=== PATIENT | male | born 1950 | race Caucasian/White ===

== ENCOUNTER 2018-12-05 18:31 | Inpatient (IN) | payer MEDICARE, OTHER ==
--- NOTE | 2018-12-05 19:21 | ED Physician Chart ---
ED Chief Complaint/HPI - Patient Information Date Seen:: 12/05/18 Time Seen:: 19:18 Chief Complaint:: agitation History of Present Illness:: 68 yr old male from [place] with agitation here for [facility] psych eval Allergies:: Allergies Allergy/AdvReac Type Severity Reaction Status Date / Time No Known Allergies Allergy Verified 12/05/18 18:58 Vitals:: Vital Signs - 8 hr 12/05/18 18:59 Temp 97.7 F HR 92 RR 18 BP 168/78 O2 Sat % 95 ED Review of Systems - Review of Systems General/Constitutional: No fever, No chills, No weight loss, No weakness, No diaphoresis, No edema, No loss of appetite Skin: No skin lesions, No rash, No bruising Head: No headache, No light-headedness Eyes: No loss of vision, No pain, No diplopia ENT: No earache, No nasal drainage, No sore throat, No tinnitus Neck: No neck pain, No swelling, No thyromegaly, No stiffness, No mass noted Cardio Vascular: No chest pain, No palpitations, No PND, No orthopnea, No edema Pulmonary: No SOB, No cough, No sputum, No wheezing GI: No nausea, No vomiting, No diarrhea, No pain, No melena, No hematochezia, No constipation, No hematemesis G/U: No dysuria, No frequency, No hematuria Musculoskeletal: No bone or joint pain, No back pain, No muscle pain Endocrine: No polyuria, No polydipsia Psychiatric: No prior psych history, No depression, No anxiety, No suicidal ideation Hematopoietic: No bruising, No lymphadenopathy Allergic/Immuno: No urticaria, No angioedema Neurological: No syncope, No focal symptoms, No weakness, No paresthesia, No headache, No seizure, No dizziness, No confusion, No vertigo ED Past Medical History - Past Medical History Past Medical History: DM, Other (paranoid schizophrenia) ED Assessment - Assessment General Assessment: schizophrenia with agitation ED Septic Shock - . 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
[2018-12-05 19:43] LABS: % LYMPHOCYTES 18.6 % (20.0-50.0); % MONOCYTES 6.5 % (2.0-10.0); % NEUTROPHILS 68.9 % (40.0-80.0); BASOPHILE ABSOLUTE 0.1 Th/cumm (0-0.2); EOSINOPHILE ABSOLUTE 0.4 Th/cmm (0.1-0.4); HEMATOCRIT 45.2 % (41.0-60); LYMPHOCYTE ABSOLUTE 1.5 Th/cmm (1.5-3.0); MEAN CELL VOLUME 87.9 fl (80-99); MEAN CORPUSCULAR HEMOGLOBIN 29.1 pg (27.0-31.0); MEAN CORPUSCULAR HGB CONC 33.1 pg (28.0-36.0); MEAN PLATELET VOLUME 7.7 fl; MONOCYTE ABSOLUTE 0.5 Th/cmm (0.3-1.0); NEUTROPHILE ABSOLUTE 5.6 Th/cmm (1.8-8.0); PLATELET COUNT 211 Th/cmm (150-400); RED BLOOD COUNT 5.14 Mil/cmm (3.80-5.80); RED CELL DISTRIBUTION WIDTH 13.5 % (11.5-20.0); WHITE BLOOD COUNT 8.1 Th/cmm (4.8-10.8)
[2018-12-05 19:56] LABS: ALB/GLOB RATIO 1.5 (1.0-1.8); ALBUMIN 4.3 gm/dL (4.2-5.5); ANION GAP 11.9 (7.0-16.0); BILIRUBIN,TOTAL 0.5 mg/dL (0.3-1.0); CALCIUM SERUM 9.6 mg/dL (8.6-10.3); CARBON DIOXIDE 26.6 mEq/L (21.0-31.0); GFR AFRICAN-AMERICAN 42.8 ml/min (>90); GFR NON AFRICAN-AMERICAN 35.4 ml/min; POTASSIUM SERUM 4.5 mEq/L (3.5-5.1); TOTAL PROTEIN,SERUM 7.2 gm/dL (6.0-8.3)
[2018-12-05 20:29] LABS: URINE SOURCE CLEAN C
[2018-12-05 20:32] LABS: URINE BILIRUBIN NEGATIVE (NEGATIVE); URINE BLOOD NEGATIVE (NEGATIVE); URINE GLUCOSE (UA) 250 mg/dL (NEGATIVE); URINE KETONE NEGATIVE (NEGATIVE); URINE LEUKOCYTE ESTERASE NEGATIVE (NEGATIVE); URINE NITRATE NEGATIVE (NEGATIVE); URINE PROTEIN NEGATIVE (NEGATIVE); URINE UROBILINOGEN 0.2 E.U./dL (0.2 - 1.0)
[2018-12-05 20:39] LABS: URINE CLARITY CLEAR (CLEAR); URINE COLOR YELLOW; URINE MICROSCOPIC INDICATED? YES
[2018-12-05 20:40] LABS: URINE BACTERIA FEW /hpf (NONE SEEN); URINE EPITHELIAL CELLS NONE SEEN /lpf (FEW); URINE RBC NONE SEEN /hpf (0-5); URINE WBC 0-2 /hpf (0-5)
[2018-12-05] MEDS ORDERED: INSULIN HUMAN REGULAR 100 UNITS/ML UNIT SUBQ ONE (20:56)
[2018-12-05] MEDS ORDERED: INSULIN HUMAN REGULAR 100 UNITS/ML UNIT ONE (21:08)
[2018-12-06 00:15] VITALS: BP 139/89
[2018-12-06 00:58] LABS: CHOLESTEROL 92 mg/dL (<200); HDL -HIGH DENSITY LIPOPROTEIN 52 mg/dL (23-92); TRIGLYCERIDES 84 mg/dL (<150)
[2018-12-06] MEDS: Multivitamin Tab PO SCH (09:48)
[2018-12-06] MEDS ORDERED: Dextrose 50% 50 mL Abboject IVP PRN (19:37)
[2018-12-06] MEDS ORDERED: GLUCAGON HCl 1 MG KIT IM PRN (19:37)
--- NOTE | 2018-12-06 20:16 | History & Physical ---
ADMIT DATE: 12/05/2018 HISTORY OF PRESENT ILLNESS: The patient is a 68-year-old male with long history of diabetes mellitus, hypertension, COPD, psychosis, admitted to [facility] under Dr. Georges's service. The patient denies any chest pain, shortness of breath. He has some cough, no fever, no chills. PAST MEDICAL HISTORY: Significant for diabetes mellitus, hypertension, chronic kidney disease, COPD, psychosis. PAST SURGICAL HISTORY: No recent surgery. ALLERGIES: None. MEDICATIONS: Follow admission reconciliation. SOCIAL HISTORY: Chronic smoker. No alcohol or drugs. FAMILY HISTORY: Noncontributory. REVIEW OF SYSTEMS: RENAL SYSTEM: No history of chronic renal disorder. CARDIOVASCULAR SYSTEM: No coronary artery disease. ENDOCRINE SYSTEM: Denies history of diabetes mellitus. GASTROINTESTINAL SYSTEM: No upper or lower gastrointestinal bleed. NEUROLOGICAL SYSTEM: No seizure disorder. MUSCULOSKELETAL SYSTEM: No muscular dystrophy. HEMATOLOGICAL SYSTEM: No bleeding tendency. RESPIRATORY SYSTEM: He has history of COPD. GENITOURINARY: No dysuria or hematuria. PHYSICAL EXAMINATION: GENERAL: He is awake, alert, mildly confused. VITAL SIGNS: Temperature 97.5, heart rate 79, blood pressure 151/89. HEENT: Normocephalic. Pupils are reactive to light and accommodation. Sclerae are clear. NECK: Supple. Negative for lymphadenopathy, JVD, or bruit. CHEST: Entry of air bilaterally mildly diminished. No wheezing. HEART: S1, S2 normal. No gallop rhythm. ABDOMEN: Soft, bowel sounds positive. EXTREMITIES: No edema. NEUROLOGIC: Awake, alert, no focal motor deficits. LABORATORY DATA: White blood cells 8.1, hemoglobin 15, hematocrit 45.2, platelet is 211. Sodium 138, potassium 4.5, BUN 39, creatinine 2.0, glucose 348. ASSESSMENT: 1. Diabetes mellitus. 2. Hypertension. 3. Chronic kidney disease. 4. Chronic obstructive pulmonary disease. 5. Psychosis. PLAN: The patient admitted to the hospital under Dr. Georges's service. Medical problem addressed during hospitalization is psychosis. Medical problem addressed at discharge diabetes mellitus, hypertension, chronic kidney disease, COPD. The patient is medically stable for activity. Thank you, Dr. Georges, for asking me to see your patient. The patient is full code. JOB# [id number]
[2018-12-06] MEDS: INSULIN LISPRO SLIDING SCALE 100 UNITS/ML UNIT SUBQ SCH (20:20)
--- NOTE | 2018-12-07 00:39 | Psychiatric Evaluation ---
DATE OF SERVICE: 12/06/2018 A 68-year-old male, apparently agitated. CHIEF COMPLAINT: "Evaluation." HISTORY OF PRESENT ILLNESS: A 68-year-old male from a nursing facility, apparently agitated, aggressive, poor historian, states he is here for "evaluation." He knows the year, the month, the date, the day of the week. He states he feels "calm," but apparently the patient was unruly, unpredictable, lashing out behaviors, could not be cared for at a lower level of care. Exacerbation of aggressive behaviors, concerns about paranoia, believing people have bad intentions towards him, responding to internal stimuli, leading to physically acting out by striking out at others. PAST PSYCHIATRIC HISTORY: Schizophrenia. FAMILY HISTORY: Noncontributory. SOCIAL HISTORY: The patient was born in [place]. Not , no kids. Denies any drugs, alcohol, or tobacco. MEDICATIONS: Noted. MENTAL STATUS EXAMINATION: Stated age, unkempt, fair eye contact. Mood "calm." Affect flat. Thought processes were engaged. Poor historian. No overt SI or HI. Concerns for paranoia and psychotic symptoms. Poor insight, poor judgment, very poor impulse control. PROVISIONAL DIAGNOSIS: Schizophrenia. Under medical, please see full H and P. ESTIMATED LENGTH OF STAY: 5-7 days. ASSESSMENT: The patient unruly, agitated, concerns for decompensation and psychosis. PLAN: Continue Zyprexa. Consider dose titration. CONDITIONS FOR DISCHARGE: Improved mood, improved affect, better control of any psychosis or violent behaviours. [facility]# [id number]
[2018-12-07] MEDS: INSULIN LISPRO SLIDING SCALE 100 UNITS/ML UNIT SUBQ SCH ×4 (06:47→20:45)
[2018-12-07] MEDS: Multivitamin Tab PO SCH (09:08)
--- NOTE | 2018-12-07 11:03 | Internal Medicine Prog Note ---
Internal Medicine Subjective - Subjective Service Date: 12/07/18 Patient seen and examined:: with staff Patient is:: awake, verbal, ambulating, talking Per staff patient has:: no adverse event (HE FEELS WELL,LESS COUGHING.) Internal Medicine Objective - Results Result Diagrams: 12/05/18 19:30 12/05/18 Recent Labs: Laboratory Last Values WBC 8.1 Th/cmm (4.8-10.8) 12/05/18: RBC 5.14 Mil/cmm (3.80-5.80) 12/05/18 Hgb 15.0 gm/dL (12-16) 12/05/18 Hct 45.2 % (41.0-60) 12/05/18: MCV 87.9 fl (80-99) 12/05/18 MCH 29.1 pg (27.0-31.0) 12/05/18 MCHC Differential 33.1 pg (28.0-36.0) 12/05/18 RDW 13.5 % (11.5-20.0) 12/05/18 Plt Count 211 Th/cmm (150-400) 12/05/18 MPV 7.7 fl 12/05/18: Neutrophils % 68.9 % (40.0-80.0) 12/05/18: Lymphocytes % 18.6 % (20.0-50.0) L 12/05/18 Monocytes % 6.5 % (2.0-10.0) 12/05/18: Eosinophils % 5.0 % (0.0-5.0) 12/05/18 Basophils % 1.0 % (0.0-2.0) 12/05/18: Sodium 138 mEq/L (136-145) 12/05/18 Potassium 4.5 mEq/L (3.5-5.1) 12/05/18 Chloride 104 mEq/L (98-107) 12/05/18: Carbon Dioxide 26.6 mEq/L (21.0-31.0) 12/05/18 Anion Gap 11.9 (7.0-16.0) 12/05/18 19:30 BUN 39 mg/dL (7-25) H 12/05/18 19:30 Creatinine 2.0 mg/dL (0.7-1.3) H 12/05/18 19:30 Est GFR ( Amer) 42.8 ml/min (>90) 12/05/18 19:30 Est GFR (Non-Af Amer) 35.4 ml/min 12/05/18 19:30 BUN/Creatinine Ratio 19.5 12/05/18 19:30 Glucose 348 mg/dL (70-105) H 12/05/18 19:30 POC Glucose 182 MG/DL (70 - 105) H 12/07/18 06:39 Random Insulin 16.6 uIU/mL (2.6-24.9) 12/05/18 19: Calcium 9.6 mg/dL (8.6-10.3) 12/05/18 19:30 Total Bilirubin 0.5 mg/dL (0.3-1.0) 12/05/18: AST 12 U/L (13-39) L 12/05/18:30 ALT 11 U/L (7-52) 12/05/18 19:30 Alkaline Phosphatase 45 U/L (34-104) 12/05/18:30 Total Protein 7.2 gm/dL (6.0-8.3) 12/05/18:30 Albumin 4.3 gm/dL (4.2-5.5) 12/05/18: Globulin 2.9 gm/dL 12/05/18: Albumin/Globulin Ratio 1.5 (1.0-1.8) 12/05/18 19:30 Triglycerides 84 mg/dL (<150) 12/05/18 19:30 Cholesterol 92 mg/dL (<200) 12/05/18 19:30 LDL Cholesterol Direct 28 mg/dL (75-193) L 12/05/18:30 HDL Cholesterol 52 mg/dL (23-92) 12/05/18 19:30 Urine Source CLEAN C 12/05/18 20:10 Urine Color YELLOW 12/05/18 20:10 Urine Clarity CLEAR (CLEAR) 12/05/18 20:10 Urine pH 6.0 (4.6 - 8.0) 12/05/18 20:10 Ur Specific [place] 1.010 (1.005-1.030) 12/05/18 20:10 Urine Protein NEGATIVE mg/dL (NEGATIVE) 12/05/18 20:10 Urine Glucose (UA) 250 mg/dL (NEGATIVE) H 12/05/18 20:10 Urine Ketones NEGATIVE mg/dL (NEGATIVE) 12/05/18 20:10 Urine Blood NEGATIVE (NEGATIVE) 12/05/18 20:10 Urine Nitrate NEGATIVE (NEGATIVE) 12/05/18 20:10 Urine Bilirubin NEGATIVE (NEGATIVE) 12/05/18 20:10 Urine Urobilinogen 0.2 E.U./dL (0.2 - 1.0) 12/05/18 20:10 Ur Leukocyte Esterase NEGATIVE (NEGATIVE) 12/05/18 20:10 Urine RBC NONE SEEN /hpf (0-5) 12/05/18 20:10 Urine WBC 0-2 /hpf (0-5) 12/05/18 20:10 Ur Epithelial Cells NONE SEEN /lpf (FEW) 12/05/18 20:10 Urine Bacteria FEW /hpf (NONE SEEN) 12/05/18 20:10 - Physical Exam Vitals and I&O: Vital Signs Temp 98.3 F 12/07/18 06:16 Pulse 77 12/07/18 09:08 Resp 19 12/07/18 06:16 BP 129/68 12/07/18 09:08 Pulse Ox 98 12/07/18 06:16 Intake & Output 12/06/18 12/07/18 12/07/18 18:59 06:59 18:59 Intake Total 1000 340 Balance 1000 340 Intake: Oral 1000 340 Other: # Voids 3 1 # Bowel Movements 1 0 Active Medications: Current Medications Acetaminophen (Tylenol) 650 mg PO Q4HR PRN PRN Reason: Pain (Mild) Stop: 02/04/19 00:31 Dextrose (D50w) 50 ml IVP PRN PRN PRN Reason: Blood Glucose less than 70 Stop: 02/04/19 19:36 Dextrose (Glutose 40%) 18.75 gm PO PRN PRN PRN Reason: Blood Glucose less than 70 Stop: 02/04/19 19:36 Docusate Sodium (Colace) 250 mg PO DAILY GAURAV Stop: 02/04/19 08:59 Last Admin: 12/07/18 09:08 Dose: 250 mg Glucagon (Glucagen) 1 mg IM PRN PRN PRN Reason: Blood Glucose less than 70 Stop: 02/04/19 19:36 Insulin Human Lispro (Humalog Insulin Sliding Scale) 0 units SUBQ ACHS [facility]; Protocol Stop: 02/04/19 20:59 Last Admin: 12/07/18 06:47 Dose: 3 units Lisinopril (Zestril) 10 mg PO DAILY GAURAV Stop: 02/04/19 08:59 Last Admin: 12/07/18 09:08 Dose: 10 mg Lorazepam (Ativan) 0.5 mg PO Q4HR PRN; Protocol PRN Reason: Anxiety Stop: 01/05/19 00:15 Multivitamins/Vitamin C (Theragran) 1 tab PO DAILY GAURAV Stop: 02/04/19 08:59 Last Admin: 12/07/18 09:08 Dose: 1 tab Olanzapine (Zyprexa) 10 mg PO BID [facility]; Protocol Stop: 02/04/19 08:59 Last Admin: 12/07/18 09:07 Dose: 10 mg Zolpidem Tartrate (Ambien) 5 mg PO HS PRN PRN Reason: Insomnia Stop: 02/03/19 21:44 General: alert, demented HEENT: NC/AT, PERRLA, EOMI, anicteric sclerae, throat clear Neck: Supple, No JVD, No thyromegaly, +2 carotid pulse wo bruit, No LAD Lungs: CTAB, congested, wheezing Cardiovascular: RRR, Normal S1, Normal S2, without murmur Abdomen: soft, non-tender, non-distended Neurological: no change Internal Medicine Assmt/Plan - Assessment Assessment: 1.DM. 2.HTN. 3.COPD. 4.PSYCHOSIS. - Plan Plan: CONTINUE ON CURRENT MEDICATION AND DIET. Nutritional Asmnt/Malnutr-PDOC - Dietary Evaluation Malnutrition Findings (Please click <Entered> for more info): Nutritional Asmnt/Malnutrition Start: 12/06/18 16: 54 Text: Status: Complete Freq: Protocol: Document 12/06/18 16:54 [email or web address] (Rec: 12/06/18 17:11 [email or web address]) Nutritional Asmnt/Malnutrition Patient General Information Nutritional Screening High Risk Consult Diagnosis psychosis NOS Pertinent Medical Hx/Surgical Hx DM, schizophrenia Subjective Information Pt not seen in room or dining room at time of visit. Current Diet Order/ Nutrition Support regular Pertinent Medications colace, theragran Pertinent Labs 12/05 BUN 39, Cr 2.0, Glucose 348, POC 181-279 Nutritional Hx/Data Height 1.68 m Height (Calculated Centimeters) 167.6 Current Weight (lbs) 73.482 kg Weight (Calculated Kilograms) 73.5 Weight (Calculated Grams) 23829.0 [place] Body Weight 142 Body Mass Index (BMI) 26.1 Weight Status Overweight GI Symptoms GI Symptoms None Last BM not indicated Difficult in: None Skin Integrity/Comment: intact Estimated Nutritional Goals BEE in Kcals: Using Current wt Calories/Kcals/Kg 23-27 Kcals Calculated 8777-5707 Protein: Using Current wt Protein g/k Protein Calculated 74 Fluid: ml 1702-1997ml (1ml/kcal) Nutritional Problem 1. Problem Problem altered nutrition related labs Etiology hyperglycemia Signs/Symptoms: glucose 348, POC 181 Malnutrition Alert Is there a minimum of two criteria No selected? Query Text:Check all the applicable criteria. A minimum of two criteria are recommended for diagnosis of either severe or non-severe malnutrition. Malnutrition Related to Morbid Obesity Malnutrition related to morbid obesity No Intervention/Recommendation Comments 1. Recommend to add CCHO-60gm diet d/t hyperglycemia. ESHA Dawn notified. 2. Monitor PO intake, wt, labs and skin integrity 3. F/U as high risk in 2-3 days Expected Outcomes/Goals Expected Outcomes/Goals 1. PO intake to meet at least 75% of nutritional needs. 2. Wt stability, skin to remain intact, labs to approach WNL.
[2018-12-08] MEDS: INSULIN LISPRO SLIDING SCALE 100 UNITS/ML UNIT SUBQ SCH ×4 (06:59→20:40)
[2018-12-08] MEDS: Multivitamin Tab PO SCH (08:51)
--- NOTE | 2018-12-08 12:10 | Progress Notes ---
DATE: 12/07/2018 SUBJECTIVE: A 68-year-old male from a nursing facility, agitated, aggressive, poor historian, does not know why he is here, continues to state that is here for "an evaluation." The patient AO to name, place, not situation, not year. Staff noting he remains preoccupied, mumbling to self, seems internally preoccupied. No agitation, no escalation of behaviors, mostly here because he was paranoid, believing others have bad intentions, responding to internal stimuli, concerns about acting up behaviors, history of schizophrenia. ASSESSMENT: The patient remains symptomatic, ongoing psychotic symptoms. MEDICATIONS: Noted. PLAN: We will continue to monitor. Continue titration of medications as tolerated. [facility]# [id number]
--- NOTE | 2018-12-08 20:24 | Internal Medicine Prog Note ---
Internal Medicine Subjective - Subjective Service Date: 12/08/18 Patient seen and examined:: with staff Patient is:: awake, verbal, ambulating, talking Per staff patient has:: no adverse event (HE FEELS WELL,LESS COUGHING.) Internal Medicine Objective - Results Result Diagrams: 12/05/18 19:12/05/18 Recent Labs: Laboratory Last Values WBC 8.1 Th/cmm (4.8-10.8) 12/05/18: RBC 5.14 Mil/cmm (3.80-5.80) 12/05/18 Hgb 15.0 gm/dL (12-16) 12/05/18 Hct 45.2 % (41.0-60) 12/05/18: MCV 87.9 fl (80-99) 12/05/18 MCH 29.1 pg (27.0-31.0) 12/05/18 MCHC Differential 33.1 pg (28.0-36.0) 12/05/18 RDW 13.5 % (11.5-20.0) 12/05/18 Plt Count 211 Th/cmm (150-400) 12/05/18 MPV 7.7 fl 12/05/18: Neutrophils % 68.9 % (40.0-80.0) 12/05/18: Lymphocytes % 18.6 % (20.0-50.0) L 12/05/18 Monocytes % 6.5 % (2.0-10.0) 12/05/18: Eosinophils % 5.0 % (0.0-5.0) 12/05/18 Basophils % 1.0 % (0.0-2.0) 12/05/18: Sodium 138 mEq/L (136-145) 12/05/18 Potassium 4.5 mEq/L (3.5-5.1) 12/05/18 Chloride 104 mEq/L (98-107) 12/05/18: Carbon Dioxide 26.6 mEq/L (21.0-31.0) 12/05/18 Anion Gap 11.9 (7.0-16.0) 12/05/18 19:30 BUN 39 mg/dL (7-25) H 12/05/18 19:30 Creatinine 2.0 mg/dL (0.7-1.3) H 12/05/18 19:30 Est GFR ( Amer) 42.8 ml/min (>90) 12/05/18 19: Est GFR (Non-Af Amer) 35.4 ml/min 12/05/18: BUN/Creatinine Ratio 19.5 12/05/18 19:30 Glucose 348 mg/dL (70-105) H 12/05/18: POC Glucose 148 MG/DL (70 - 105) H 12/07/18: Random Insulin 16.6 uIU/mL (2.6-24.9) 12/05/18: Calcium 9.6 mg/dL (8.6-10.3) 12/05/18: Total Bilirubin 0.5 mg/dL (0.3-1.0) 12/05/18: AST 12 U/L (13-39) L 12/05/18:30 ALT 11 U/L (7-52) 12/05/18: Alkaline Phosphatase 45 U/L (34-104) 12/05/18: Total Protein 7.2 gm/dL (6.0-8.3) 12/05/18: Albumin 4.3 gm/dL (4.2-5.5) 12/05/18: Globulin 2.9 gm/dL 12/05/18: Albumin/Globulin Ratio 1.5 (1.0-1.8) 12/05/18 19:30 Triglycerides 84 mg/dL (<150) 12/05/18 19:30 Cholesterol 92 mg/dL (<200) 12/05/18 19:30 LDL Cholesterol Direct 28 mg/dL (75-193) L 12/05/18: HDL Cholesterol 52 mg/dL (23-92) 12/05/18 19:30 Urine Source CLEAN C 12/05/18 20:10 Urine Color YELLOW 12/05/18 20:10 Urine Clarity CLEAR (CLEAR) 12/05/18 20:10 Urine pH 6.0 (4.6 - 8.0) 12/05/18 20:10 Ur Specific [place] 1.010 (1.005-1.030) 12/05/18 20:10 Urine Protein NEGATIVE mg/dL (NEGATIVE) 12/05/18 20:10 Urine Glucose (UA) 250 mg/dL (NEGATIVE) H 12/05/18 20:10 Urine Ketones NEGATIVE mg/dL (NEGATIVE) 12/05/18 20:10 Urine Blood NEGATIVE (NEGATIVE) 12/05/18 20:10 Urine Nitrate NEGATIVE (NEGATIVE) 12/05/18 20:10 Urine Bilirubin NEGATIVE (NEGATIVE) 12/05/18 20:10 Urine Urobilinogen 0.2 E.U./dL (0.2 - 1.0) 12/05/18 20:10 Ur Leukocyte Esterase NEGATIVE (NEGATIVE) 12/05/18 20:10 Urine RBC NONE SEEN /hpf (0-5) 12/05/18 20:10 Urine WBC 0-2 /hpf (0-5) 12/05/18 20:10 Ur Epithelial Cells NONE SEEN /lpf (FEW) 12/05/18 20:10 Urine Bacteria FEW /hpf (NONE SEEN) 12/05/18 20:10 - Physical Exam Vitals and I&O: Vital Signs Temp 98.0 F 12/08/18 14:00 Pulse 89 12/08/18 14:00 Resp 20 12/08/18 14:00 BP 130/80 12/08/18 14:00 Pulse Ox 96 12/08/18 14:00 Intake & Output 12/08/18 12/08/18 12/09/18 06:59 18:59 06:59 Intake Total 240 Balance 240 Intake: Oral 240 Other: # Voids 3 2 # Bowel Movements 0 0 Active Medications: Current Medications Acetaminophen (Tylenol) 650 mg PO Q4HR PRN PRN Reason: Pain (Mild) Stop: 02/04/19 00:31 Dextrose (D50w) 50 ml IVP PRN PRN PRN Reason: Blood Glucose less than 70 Stop: 02/04/19 19:36 Dextrose (Glutose 40%) 18.75 gm PO PRN PRN PRN Reason: Blood Glucose less than 70 Stop: 02/04/19 19:36 Docusate Sodium (Colace) 250 mg PO DAILY GAURAV Stop: 02/04/19 08:59 Last Admin: 12/08/18 08:51 Dose: 250 mg Glucagon (Glucagen) 1 mg IM PRN PRN PRN Reason: Blood Glucose less than 70 Stop: 02/04/19 19:36 Insulin Human Lispro (Humalog Insulin Sliding Scale) 0 units SUBQ ACHS [facility]; Protocol Stop: 02/04/19 20:59 Last Admin: 12/08/18 18:02 Dose: Not Given Lisinopril (Zestril) 10 mg PO DAILY GAURAV Stop: 02/04/19 08:59 Last Admin: 12/08/18 08:50 Dose: 10 mg Lorazepam (Ativan) 0.5 mg PO Q4HR PRN; Protocol PRN Reason: Anxiety Stop: 01/05/19 00:15 Multivitamins/Vitamin C (Theragran) 1 tab PO DAILY GAURAV Stop: 02/04/19 08:59 Last Admin: 12/08/18 08:51 Dose: 1 tab Olanzapine (Zyprexa) 10 mg PO BID [facility]; Protocol Stop: 02/04/19 08:59 Last Admin: 12/08/18 18:00 Dose: 10 mg Zolpidem Tartrate (Ambien) 5 mg PO HS PRN PRN Reason: Insomnia Stop: 02/03/19 21:44 General: alert, demented HEENT: NC/AT, PERRLA, EOMI, anicteric sclerae, throat clear Neck: Supple, No JVD, No thyromegaly, +2 carotid pulse wo bruit, No LAD Lungs: CTAB, congested, wheezing Cardiovascular: RRR, Normal S1, Normal S2, without murmur Abdomen: soft, non-tender, non-distended Neurological: no change Internal Medicine Assmt/Plan - Assessment Assessment: 1.DM. 2.HTN. 3.COPD. 4.PSYCHOSIS. - Plan Plan: CONTINUE ON CURRENT MEDICATION AND DIET. Nutritional Asmnt/Malnutr-PDOC - Dietary Evaluation Malnutrition Findings (Please click <Entered> for more info): Nutritional Asmnt/Malnutrition Start: 12/06/18 16: 54 Text: Status: Complete Freq: Protocol: Document 12/06/18 16:54 [email or web address] (Rec: 12/06/18 17:11 [email or web address]) Nutritional Asmnt/Malnutrition Patient General Information Nutritional Screening High Risk Consult Diagnosis psychosis NOS Pertinent Medical Hx/Surgical Hx DM, schizophrenia Subjective Information Pt not seen in room or dining room at time of visit. Current Diet Order/ Nutrition Support regular Pertinent Medications colace, theragran Pertinent Labs 12/05 BUN 39, Cr 2.0, Glucose 348, POC 181-279 Nutritional Hx/Data Height 1.68 m Height (Calculated Centimeters) 167.6 Current Weight (lbs) 73.482 kg Weight (Calculated Kilograms) 73.5 Weight (Calculated Grams) 05076.0 [place] Body Weight 142 Body Mass Index (BMI) 26.1 Weight Status Overweight GI Symptoms GI Symptoms None Last BM not indicated Difficult in: None Skin Integrity/Comment: intact Estimated Nutritional Goals BEE in Kcals: Using Current wt Calories/Kcals/Kg 23-27 Kcals Calculated 1666-8128 Protein: Using Current wt Protein g/k Protein Calculated 74 Fluid: ml 1702-1997ml (1ml/kcal) Nutritional Problem 1. Problem Problem altered nutrition related labs Etiology hyperglycemia Signs/Symptoms: glucose 348, POC 181 Malnutrition Alert Is there a minimum of two criteria No selected? Query Text:Check all the applicable criteria. A minimum of two criteria are recommended for diagnosis of either severe or non-severe malnutrition. Malnutrition Related to Morbid Obesity Malnutrition related to morbid obesity No Intervention/Recommendation Comments 1. Recommend to add CCHO-60gm diet d/t hyperglycemia. RN López notified. 2. Monitor PO intake, wt, labs and skin integrity 3. F/U as high risk in 2-3 days Expected Outcomes/Goals Expected Outcomes/Goals 1. PO intake to meet at least 75% of nutritional needs. 2. Wt stability, skin to remain intact, labs to approach WNL.
[2018-12-09] MEDS: INSULIN LISPRO SLIDING SCALE 100 UNITS/ML UNIT SUBQ SCH ×4 (06:58→20:51)
[2018-12-09] MEDS: Multivitamin Tab PO SCH (09:13)
--- NOTE | 2018-12-09 12:02 | Progress Notes ---
DATE: 12/08/2018 SUBJECTIVE: The patient is currently in the hospital, here for "evaluation," fairly oriented, coming here for aggressive behaviors. The patient seems to still be symptomatic, mumbling to self, making some nonsensical comments and statements. The patient states he feels "anxious," does not know where he is going to go when he leaves here. He slept for about 8 hours last night. AO to name, place, not situation. Still seems to be mumbling to self, responding to internal stimuli, ongoing concerns about psychosis. ASSESSMENT: The patient remains psychotic, not safe for a lower level of care, ongoing concerns about impulsivities. PLAN: We will continue to monitor. Continue dosing of medications. Consider dose increase of Zyprexa. JOB# [id number]
--- NOTE | 2018-12-09 16:39 | Internal Medicine Prog Note ---
Internal Medicine Subjective - Subjective Service Date: 12/09/18 Patient seen and examined:: with staff Patient is:: awake, verbal, ambulating, talking Per staff patient has:: no adverse event (HE FEELS WELL,LESS COUGHING.) Internal Medicine Objective - Results Result Diagrams: 12/05/18 19:12/05/18 Recent Labs: Laboratory Last Values WBC 8.1 Th/cmm (4.8-10.8) 12/05/18: RBC 5.14 Mil/cmm (3.80-5.80) 12/05/18 Hgb 15.0 gm/dL (12-16) 12/05/18 Hct 45.2 % (41.0-60) 12/05/18 MCV 87.9 fl (80-99) 12/05/18 MCH 29.1 pg (27.0-31.0) 12/05/18 MCHC Differential 33.1 pg (28.0-36.0) 12/05/18 RDW 13.5 % (11.5-20.0) 12/05/18 Plt Count 211 Th/cmm (150-400) 12/05/18 MPV 7.7 fl 12/05/18 Neutrophils % 68.9 % (40.0-80.0) 12/05/18 Lymphocytes % 18.6 % (20.0-50.0) L 12/05/18 Monocytes % 6.5 % (2.0-10.0) 12/05/18: Eosinophils % 5.0 % (0.0-5.0) 12/05/18 Basophils % 1.0 % (0.0-2.0) 12/05/18: Sodium 138 mEq/L (136-145) 12/05/18 Potassium 4.5 mEq/L (3.5-5.1) 12/05/18 Chloride 104 mEq/L (98-107) 12/05/18: Carbon Dioxide 26.6 mEq/L (21.0-31.0) 12/05/18 Anion Gap 11.9 (7.0-16.0) 12/05/18 19:30 BUN 39 mg/dL (7-25) H 12/05/18 19:30 Creatinine 2.0 mg/dL (0.7-1.3) H 12/05/18 19:30 Est GFR ( Amer) 42.8 ml/min (>90) 12/05/18 19: Est GFR (Non-Af Amer) 35.4 ml/min 12/05/18: BUN/Creatinine Ratio 19.5 12/05/18 19:30 Glucose 348 mg/dL (70-105) H 12/05/18: POC Glucose 148 MG/DL (70 - 105) H 12/07/18: Random Insulin 16.6 uIU/mL (2.6-24.9) 12/05/18: Calcium 9.6 mg/dL (8.6-10.3) 12/05/18: Total Bilirubin 0.5 mg/dL (0.3-1.0) 12/05/18: AST 12 U/L (13-39) L 12/05/18:30 ALT 11 U/L (7-52) 12/05/18: Alkaline Phosphatase 45 U/L (34-104) 12/05/18: Total Protein 7.2 gm/dL (6.0-8.3) 12/05/18: Albumin 4.3 gm/dL (4.2-5.5) 12/05/18: Globulin 2.9 gm/dL 12/05/18: Albumin/Globulin Ratio 1.5 (1.0-1.8) 12/05/18 19:30 Triglycerides 84 mg/dL (<150) 12/05/18 19:30 Cholesterol 92 mg/dL (<200) 12/05/18 19:30 LDL Cholesterol Direct 28 mg/dL (75-193) L 12/05/18: HDL Cholesterol 52 mg/dL (23-92) 12/05/18 19:30 Urine Source CLEAN C 12/05/18 20:10 Urine Color YELLOW 12/05/18 20:10 Urine Clarity CLEAR (CLEAR) 12/05/18 20:10 Urine pH 6.0 (4.6 - 8.0) 12/05/18 20:10 Ur Specific [place] 1.010 (1.005-1.030) 12/05/18 20:10 Urine Protein NEGATIVE mg/dL (NEGATIVE) 12/05/18 20:10 Urine Glucose (UA) 250 mg/dL (NEGATIVE) H 12/05/18 20:10 Urine Ketones NEGATIVE mg/dL (NEGATIVE) 12/05/18 20:10 Urine Blood NEGATIVE (NEGATIVE) 12/05/18 20:10 Urine Nitrate NEGATIVE (NEGATIVE) 12/05/18 20:10 Urine Bilirubin NEGATIVE (NEGATIVE) 12/05/18 20:10 Urine Urobilinogen 0.2 E.U./dL (0.2 - 1.0) 12/05/18 20:10 Ur Leukocyte Esterase NEGATIVE (NEGATIVE) 12/05/18 20:10 Urine RBC NONE SEEN /hpf (0-5) 12/05/18 20:10 Urine WBC 0-2 /hpf (0-5) 12/05/18 20:10 Ur Epithelial Cells NONE SEEN /lpf (FEW) 12/05/18 20:10 Urine Bacteria FEW /hpf (NONE SEEN) 12/05/18 20:10 - Physical Exam Vitals and I&O: Vital Signs Temp 97.8 F 12/09/18 13:58 Pulse 91 12/09/18 13:58 Resp 16 12/09/18 13:58 BP 106/70 12/09/18 13:58 Pulse Ox 99 12/09/18 13:58 Intake & Output 12/08/18 12/09/18 12/09/18 18:59 06:59 18:59 Intake Total 120 Balance 120 Intake: Oral 120 Other: # Voids 2 2 # Bowel Movements 0 Active Medications: Current Medications Acetaminophen (Tylenol) 650 mg PO Q4HR PRN PRN Reason: Pain (Mild) Stop: 02/04/19 00:31 Dextrose (D50w) 50 ml IVP PRN PRN PRN Reason: Blood Glucose less than 70 Stop: 02/04/19 19:36 Dextrose (Glutose 40%) 18.75 gm PO PRN PRN PRN Reason: Blood Glucose less than 70 Stop: 02/04/19 19:36 Docusate Sodium (Colace) 250 mg PO DAILY GAURAV Stop: 02/04/19 08:59 Last Admin: 12/09/18 09:13 Dose: 250 mg Glucagon (Glucagen) 1 mg IM PRN PRN PRN Reason: Blood Glucose less than 70 Stop: 02/04/19 19:36 Insulin Human Lispro (Humalog Insulin Sliding Scale) 0 units SUBQ ACHS [facility]; Protocol Stop: 02/04/19 20:59 Last Admin: 12/09/18 12:04 Dose: 5 units Lisinopril (Zestril) 10 mg PO DAILY GAURAV Stop: 02/04/19 08:59 Last Admin: 12/09/18 09:13 Dose: 10 mg Lorazepam (Ativan) 0.5 mg PO Q4HR PRN; Protocol PRN Reason: Anxiety Stop: 01/05/19 00:15 Multivitamins/Vitamin C (Theragran) 1 tab PO DAILY [facility]URAV Stop: 02/04/19 08:59 Last Admin: 12/09/18 09:13 Dose: 1 tab Olanzapine (Zyprexa) 10 mg PO BID [facility]; Protocol Stop: 02/04/19 08:59 Last Admin: 12/09/18 09:13 Dose: 10 mg Zolpidem Tartrate (Ambien) 5 mg PO HS PRN PRN Reason: Insomnia Stop: 02/03/19 21:44 General: alert, demented HEENT: NC/AT, PERRLA, EOMI, anicteric sclerae, throat clear Neck: Supple, No JVD, No thyromegaly, +2 carotid pulse wo bruit, No LAD Lungs: CTAB, congested, wheezing Cardiovascular: RRR, Normal S1, Normal S2, without murmur Abdomen: soft, non-tender, non-distended Neurological: no change Internal Medicine Assmt/Plan - Assessment Assessment: 1.DM. 2.HTN. 3.COPD. 4.PSYCHOSIS. - Plan Plan: CONTINUE ON CURRENT MEDICATION AND DIET. Nutritional Asmnt/Malnutr-PDOC - Dietary Evaluation Malnutrition Findings (Please click <Entered> for more info): Nutritional Asmnt/Malnutrition Start: 12/06/18 16: 54 Text: Status: Complete Freq: Protocol: Document 12/06/18 16:54 [email or web address] (Rec: 12/06/18 17:11 GIANNAG [email or web address]) Nutritional Asmnt/Malnutrition Patient General Information Nutritional Screening High Risk Consult Diagnosis psychosis NOS Pertinent Medical Hx/Surgical Hx DM, schizophrenia Subjective Information Pt not seen in room or dining room at time of visit. Current Diet Order/ Nutrition Support regular Pertinent Medications colace, theragran Pertinent Labs 12/05 BUN 39, Cr 2.0, Glucose 348, POC 181-279 Nutritional Hx/Data Height 1.68 m Height (Calculated Centimeters) 167.6 Current Weight (lbs) 73.482 kg Weight (Calculated Kilograms) 73.5 Weight (Calculated Grams) 32476.0 [place] Body Weight 142 Body Mass Index (BMI) 26.1 Weight Status Overweight GI Symptoms GI Symptoms None Last BM not indicated Difficult in: None Skin Integrity/Comment: intact Estimated Nutritional Goals BEE in Kcals: Using Current wt Calories/Kcals/Kg 23-27 Kcals Calculated 2827-3115 Protein: Using Current wt Protein g/k Protein Calculated 74 Fluid: ml 170-1997ml (1ml/kcal) Nutritional Problem 1. Problem Problem altered nutrition related labs Etiology hyperglycemia Signs/Symptoms: glucose 348, POC 181 Malnutrition Alert Is there a minimum of two criteria No selected? Query Text:Check all the applicable criteria. A minimum of two criteria are recommended for diagnosis of either severe or non-severe malnutrition. Malnutrition Related to Morbid Obesity Malnutrition related to morbid obesity No Intervention/Recommendation Comments 1. Recommend to add CCHO-60gm diet d/t hyperglycemia. RN López notified. 2. Monitor PO intake, wt, labs and skin integrity 3. F/U as high risk in 2-3 days Expected Outcomes/Goals Expected Outcomes/Goals 1. PO intake to meet at least 75% of nutritional needs. 2. Wt stability, skin to remain intact, labs to approach WNL.
[2018-12-10] MEDS: INSULIN LISPRO SLIDING SCALE 100 UNITS/ML UNIT SUBQ SCH ×3 (06:48→20:11)
--- NOTE | 2018-12-10 06:55 | Progress Notes ---
DATE: 12/09/2018 SUBJECTIVE: Chart reviewed and the patient interviewed. Also discussed the patient's condition with the staff and reviewed records and labs. The patient seems to be calm and quieter than when he first came in. The patient also is sleeping better at night. Also, behavior problem seems to be slightly diminishing. He is still having episodes of anxiety and irritability and restlessness, but seems to be less than before. Otherwise, the patient is compliant with taking his medications with less side effects. ASSESSMENT: The patient seems to be less agitated and less irritable. TREATMENT PLAN: Continue to monitor his behavior and his condition closely. Also, we will continue Zyprexa in a dose of 10 mg twice a day and will continue to follow up. [facility]# [id number]
[2018-12-10] MEDS: Multivitamin Tab PO SCH (08:46)
--- NOTE | 2018-12-10 21:13 | Internal Medicine Prog Note ---
Internal Medicine Subjective - Subjective Service Date: 12/10/18 Patient seen and examined:: with staff Patient is:: awake, verbal, ambulating, talking Per staff patient has:: no adverse event (HE FEELS WELL,LESS COUGHING.) Internal Medicine Objective - Results Result Diagrams: 12/05/18 19:30 12/05/18 Recent Labs: Laboratory Last Values WBC 8.1 Th/cmm (4.8-10.8) 12/05/18: RBC 5.14 Mil/cmm (3.80-5.80) 12/05/18 Hgb 15.0 gm/dL (12-16) 12/05/18 Hct 45.2 % (41.0-60) 12/05/18: MCV 87.9 fl (80-99) 12/05/18 MCH 29.1 pg (27.0-31.0) 12/05/18 MCHC Differential 33.1 pg (28.0-36.0) 12/05/18 RDW 13.5 % (11.5-20.0) 12/05/18 Plt Count 211 Th/cmm (150-400) 12/05/18 MPV 7.7 fl 12/05/18: Neutrophils % 68.9 % (40.0-80.0) 12/05/18: Lymphocytes % 18.6 % (20.0-50.0) L 12/05/18 Monocytes % 6.5 % (2.0-10.0) 12/05/18: Eosinophils % 5.0 % (0.0-5.0) 12/05/18 Basophils % 1.0 % (0.0-2.0) 12/05/18: Sodium 138 mEq/L (136-145) 12/05/18 Potassium 4.5 mEq/L (3.5-5.1) 12/05/18 Chloride 104 mEq/L (98-107) 12/05/18: Carbon Dioxide 26.6 mEq/L (21.0-31.0) 12/05/18 Anion Gap 11.9 (7.0-16.0) 12/05/18 19:30 BUN 39 mg/dL (7-25) H 12/05/18 19:30 Creatinine 2.0 mg/dL (0.7-1.3) H 12/05/18 19:30 Est GFR ( Amer) 42.8 ml/min (>90) 12/05/18 19: Est GFR (Non-Af Amer) 35.4 ml/min 12/05/18: BUN/Creatinine Ratio 19.5 12/05/18 19:30 Glucose 348 mg/dL (70-105) H 12/05/18: POC Glucose 148 MG/DL (70 - 105) H 12/07/18: Random Insulin 16.6 uIU/mL (2.6-24.9) 12/05/18: Calcium 9.6 mg/dL (8.6-10.3) 12/05/18: Total Bilirubin 0.5 mg/dL (0.3-1.0) 12/05/18: AST 12 U/L (13-39) L 12/05/18:30 ALT 11 U/L (7-52) 12/05/18: Alkaline Phosphatase 45 U/L (34-104) 12/05/18: Total Protein 7.2 gm/dL (6.0-8.3) 12/05/18: Albumin 4.3 gm/dL (4.2-5.5) 12/05/18: Globulin 2.9 gm/dL 12/05/18: Albumin/Globulin Ratio 1.5 (1.0-1.8) 12/05/18 19:30 Triglycerides 84 mg/dL (<150) 12/05/18 19:30 Cholesterol 92 mg/dL (<200) 12/05/18 19:30 LDL Cholesterol Direct 28 mg/dL (75-193) L 12/05/18: HDL Cholesterol 52 mg/dL (23-92) 12/05/18 19:30 Urine Source CLEAN C 12/05/18 20:10 Urine Color YELLOW 12/05/18 20:10 Urine Clarity CLEAR (CLEAR) 12/05/18 20:10 Urine pH 6.0 (4.6 - 8.0) 12/05/18 20:10 Ur Specific [place] 1.010 (1.005-1.030) 12/05/18 20:10 Urine Protein NEGATIVE mg/dL (NEGATIVE) 12/05/18 20:10 Urine Glucose (UA) 250 mg/dL (NEGATIVE) H 12/05/18 20:10 Urine Ketones NEGATIVE mg/dL (NEGATIVE) 12/05/18 20:10 Urine Blood NEGATIVE (NEGATIVE) 12/05/18 20:10 Urine Nitrate NEGATIVE (NEGATIVE) 12/05/18 20:10 Urine Bilirubin NEGATIVE (NEGATIVE) 12/05/18 20:10 Urine Urobilinogen 0.2 E.U./dL (0.2 - 1.0) 12/05/18 20:10 Ur Leukocyte Esterase NEGATIVE (NEGATIVE) 12/05/18 20:10 Urine RBC NONE SEEN /hpf (0-5) 12/05/18 20:10 Urine WBC 0-2 /hpf (0-5) 12/05/18 20:10 Ur Epithelial Cells NONE SEEN /lpf (FEW) 12/05/18 20:10 Urine Bacteria FEW /hpf (NONE SEEN) 12/05/18 20:10 - Physical Exam Vitals and I&O: Vital Signs Temp 98.0 F 12/10/18 14:00 Pulse 85 12/10/18 14:00 Resp 20 12/10/18 14:00 BP 110/62 12/10/18 14:00 Pulse Ox 98 12/10/18 14:00 Intake & Output 12/10/18 12/10/18 12/11/18 06:59 18:59 06:59 Intake Total 120 1400 Balance 120 1400 Intake: Oral 120 1400 Other: # Voids 3 3 # Bowel Movements 0 Active Medications: Current Medications Acetaminophen (Tylenol) 650 mg PO Q4HR PRN PRN Reason: Pain (Mild) Stop: 02/04/19 00:31 Dextrose (D50w) 50 ml IVP PRN PRN PRN Reason: Blood Glucose less than 70 Stop: 02/04/19 19:36 Dextrose (Glutose 40%) 18.75 gm PO PRN PRN PRN Reason: Blood Glucose less than 70 Stop: 02/04/19 19:36 Docusate Sodium (Colace) 250 mg PO DAILY GAURAV Stop: 02/04/19 08:59 Last Admin: 12/10/18 08:47 Dose: 250 mg Glucagon (Glucagen) 1 mg IM PRN PRN PRN Reason: Blood Glucose less than 70 Stop: 02/04/19 19:36 Insulin Human Lispro (Humalog Insulin Sliding Scale) 0 units SUBQ ACHS [facility]; Protocol Stop: 02/04/19 20:59 Last Admin: 12/10/18 20:11 Dose: 5 units Lisinopril (Zestril) 10 mg PO DAILY GAURAV Stop: 02/04/19 08:59 Last Admin: 12/10/18 08:48 Dose: Not Given Lorazepam (Ativan) 0.5 mg PO Q4HR PRN; Protocol PRN Reason: Anxiety Stop: 01/05/19 00:15 Multivitamins/Vitamin C (Theragran) 1 tab PO DAILY [facility] Stop: 02/04/19 08:59 Last Admin: 12/10/18 08:46 Dose: 1 tab Olanzapine (Zyprexa) 10 mg PO BID [facility]; Protocol Stop: 02/04/19 08:59 Last Admin: 12/10/18 08:47 Dose: 10 mg Zolpidem Tartrate (Ambien) 5 mg PO HS PRN PRN Reason: Insomnia Stop: 02/03/19 21:44 General: alert, demented HEENT: NC/AT, PERRLA, EOMI, anicteric sclerae, throat clear Neck: Supple, No JVD, No thyromegaly, +2 carotid pulse wo bruit, No LAD Lungs: CTAB, congested, wheezing Cardiovascular: RRR, Normal S1, Normal S2, without murmur Abdomen: soft, non-tender, non-distended Neurological: no change Internal Medicine Assmt/Plan - Assessment Assessment: 1.DM. 2.HTN. 3.COPD. 4.PSYCHOSIS. - Plan Plan: CONTINUE ON CURRENT MEDICATION AND DIET. Nutritional Asmnt/Malnutr-PDOC - Dietary Evaluation Malnutrition Findings (Please click <Entered> for more info): Nutritional Asmnt/Malnutrition Start: 12/06/18 16: 54 Text: Status: Complete Freq: Protocol: Document 12/06/18 16:54 LCHENG (Rec: 12/06/18 17:11 GIANNAG [email or web address]) Nutritional Asmnt/Malnutrition Patient General Information Nutritional Screening High Risk Consult Diagnosis psychosis NOS Pertinent Medical Hx/Surgical Hx DM, schizophrenia Subjective Information Pt not seen in room or dining room at time of visit. Current Diet Order/ Nutrition Support regular Pertinent Medications colace, theragran Pertinent Labs 12/05 BUN 39, Cr 2.0, Glucose 348, POC 181-279 Nutritional Hx/Data Height 1.68 m Height (Calculated Centimeters) 167.6 Current Weight (lbs) 73.482 kg Weight (Calculated Kilograms) 73.5 Weight (Calculated Grams) 01148.0 [place] Body Weight 142 Body Mass Index (BMI) 26.1 Weight Status Overweight GI Symptoms GI Symptoms None Last BM not indicated Difficult in: None Skin Integrity/Comment: intact Estimated Nutritional Goals BEE in Kcals: Using Current wt Calories/Kcals/Kg 23-27 Kcals Calculated 9069-0736 Protein: Using Current wt Protein g/k Protein Calculated 74 Fluid: ml 1702-1997ml (1ml/kcal) Nutritional Problem 1. Problem Problem altered nutrition related labs Etiology hyperglycemia Signs/Symptoms: glucose 348, POC 181 Malnutrition Alert Is there a minimum of two criteria No selected? Query Text:Check all the applicable criteria. A minimum of two criteria are recommended for diagnosis of either severe or non-severe malnutrition. Malnutrition Related to Morbid Obesity Malnutrition related to morbid obesity No Intervention/Recommendation Comments 1. Recommend to add CCHO-60gm diet d/t hyperglycemia. ESHA Dawn notified. 2. Monitor PO intake, wt, labs and skin integrity 3. F/U as high risk in 2-3 days Expected Outcomes/Goals Expected Outcomes/Goals 1. PO intake to meet at least 75% of nutritional needs. 2. Wt stability, skin to remain intact, labs to approach WNL.
[2018-12-11] MEDS: INSULIN LISPRO SLIDING SCALE 100 UNITS/ML UNIT SUBQ SCH ×4 (06:34→21:06)
[2018-12-11] MEDS: Multivitamin Tab PO SCH (09:15)
--- NOTE | 2018-12-11 14:21 | Progress Notes ---
DATE: 12/10/2018 DATE: 12/10/2018. SUBJECTIVE: Chart reviewed and the patient interviewed. Also discussed the patient's condition with the staff and reviewed records and labs. The patient seems to be sleepy and he is still isolative and withdrawn. He still has episodes of irritability and anxiety. The patient also is still needs close monitoring. He also is still needs DICTATION ENDS HERE JOB# [id number]
--- NOTE | 2018-12-11 14:27 | Progress Notes ---
DATE: 12/10/2018 DATE OF SERVICE: 12/10/2018. SUBJECTIVE: Chart reviewed and the patient interviewed. Also discussed the patient's condition with the staff and reviewed records and labs. The patient is still having episodes of irritability and anger. The patient also still isolative and withdrawn and wants to be left alone. The patient is also still easily agitated and easily irritable. Otherwise, the patient is compliant with taking his medications with no side effects of medications. ASSESSMENT: The patient still needs close monitoring and is still agitated. TREATMENT PLAN: We will continue monitoring the patient's behavior and condition closely. Also, continue adjusting psychotropic medications and continue to follow up. JOB# [id number]
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
--- NOTE | 2018-12-11 17:45 | General Progress Note ---
Subjective - Review of Systems Service Date: 12/11/18 Subjective: resting comfortably no distress Objective - Results Result Diagrams: 12/05/18 19:30 12/05/18 19: Recent Labs: Laboratory Last Values WBC 8.1 Th/cmm (4.8-10.8) 12/05/18: RBC 5.14 Mil/cmm (3.80-5.80) 12/05/18: Hgb 15.0 gm/dL (12-16) 12/05/18: Hct 45.2 % (41.0-60) 12/05/18: MCV 87.9 fl (80-99) 12/05/18: MCH 29.1 pg (27.0-31.0) 12/05/18 MCHC Differential 33.1 pg (28.0-36.0) 12/05/18: RDW 13.5 % (11.5-20.0) 12/05/18: Plt Count 211 Th/cmm (150-400) 12/05/18: MPV 7.7 fl 12/05/18: Neutrophils % 68.9 % (40.0-80.0) 12/05/18: Lymphocytes % 18.6 % (20.0-50.0) L 12/05/18: Monocytes % 6.5 % (2.0-10.0) 12/05/18: Eosinophils % 5.0 % (0.0-5.0) 12/05/18: Basophils % 1.0 % (0.0-2.0) 12/05/18: Sodium 138 mEq/L (136-145) 12/05/18: Potassium 4.5 mEq/L (3.5-5.1) 12/05/18: Chloride 104 mEq/L (98-107) 12/05/18: Carbon Dioxide 26.6 mEq/L (21.0-31.0) 12/05/18: Anion Gap 11.9 (7.0-16.0) 12/05/18: BUN 39 mg/dL (7-25) H 12/05/18:30 Creatinine 2.0 mg/dL (0.7-1.3) H 12/05/18 19:30 Est GFR ( Amer) 42.8 ml/min (>90) 12/05/18 19:30 Est GFR (Non-Af Amer) 35.4 ml/min 12/05/18 19:30 BUN/Creatinine Ratio 19.5 12/05/18 19:30 Glucose 348 mg/dL (70-105) H 12/05/18 19:30 POC Glucose 148 MG/DL (70 - 105) H 12/07/18 11:19 Random Insulin 16.6 uIU/mL (2.6-24.9) 12/05/18 19: Calcium 9.6 mg/dL (8.6-10.3) 12/05/18: Total Bilirubin 0.5 mg/dL (0.3-1.0) 12/05/18 19:30 AST 12 U/L (13-39) L 12/05/18:30 ALT 11 U/L (7-52) 12/05/18 19:30 Alkaline Phosphatase 45 U/L (34-104) 12/05/18 19:30 Total Protein 7.2 gm/dL (6.0-8.3) 12/05/18 19:30 Albumin 4.3 gm/dL (4.2-5.5) 12/05/18:30 Globulin 2.9 gm/dL 12/05/18 19:30 Albumin/Globulin Ratio 1.5 (1.0-1.8) 12/05/18 19:30 Triglycerides 84 mg/dL (<150) 12/05/18 19:30 Cholesterol 92 mg/dL (<200) 12/05/18 19:30 LDL Cholesterol Direct 28 mg/dL (75-193) L 12/05/18 19:30 HDL Cholesterol 52 mg/dL (23-92) 12/05/18 19:30 Urine Source CLEAN C 12/05/18 20:10 Urine Color YELLOW 12/05/18 20:10 Urine Clarity CLEAR (CLEAR) 12/05/18 20:10 Urine pH 6.0 (4.6 - 8.0) 12/05/18 20:10 Ur Specific [place] 1.010 (1.005-1.030) 12/05/18 20:10 Urine Protein NEGATIVE mg/dL (NEGATIVE) 12/05/18 20:10 Urine Glucose (UA) 250 mg/dL (NEGATIVE) H 12/05/18 20:10 Urine Ketones NEGATIVE mg/dL (NEGATIVE) 12/05/18 20:10 Urine Blood NEGATIVE (NEGATIVE) 12/05/18 20:10 Urine Nitrate NEGATIVE (NEGATIVE) 12/05/18 20:10 Urine Bilirubin NEGATIVE (NEGATIVE) 12/05/18 20:10 Urine Urobilinogen 0.2 E.U./dL (0.2 - 1.0) 12/05/18 20:10 Ur Leukocyte Esterase NEGATIVE (NEGATIVE) 12/05/18 20:10 Urine RBC NONE SEEN /hpf (0-5) 12/05/18 20:10 Urine WBC 0-2 /hpf (0-5) 12/05/18 20:10 Ur Epithelial Cells NONE SEEN /lpf (FEW) 12/05/18 20:10 Urine Bacteria FEW /hpf (NONE SEEN) 12/05/18 20:10 - Physical Exam Vitals and I&O: Vital Signs Temp 98.8 F 12/11/18 14:00 Pulse 104 12/11/18 14:00 Resp 24 12/11/18 14:00 BP 146/78 12/11/18 14:00 Pulse Ox 93 12/11/18 14:00 Intake & Output 12/10/18 12/11/18 12/11/18 18:59 06:59 18:59 Intake Total 1400 120 Balance 1400 120 Intake: Oral 1400 120 Other: # Voids 3 2 # Bowel Movements 0 0 Active Medications: Current Medications Acetaminophen (Tylenol) 650 mg PO Q4HR PRN PRN Reason: Pain (Mild) Stop: 02/04/19 00:31 Dextrose (D50w) 50 ml IVP PRN PRN PRN Reason: Blood Glucose less than 70 Stop: 02/04/19 19:36 Dextrose (Glutose 40%) 18.75 gm PO PRN PRN PRN Reason: Blood Glucose less than 70 Stop: 02/04/19 19:36 Docusate Sodium (Colace) 250 mg PO DAILY [facility] Stop: 02/04/19 08:59 Last Admin: 12/11/18 09:16 Dose: Not Given Glucagon (Glucagen) 1 mg IM PRN PRN PRN Reason: Blood Glucose less than 70 Stop: 02/04/19 19:36 Insulin Human Lispro (Humalog Insulin Sliding Scale) 0 units SUBQ ACHS [facility]; Protocol Stop: 02/04/19 20:59 Last Admin: 12/11/18 17:32 Dose: Not Given Lisinopril (Zestril) 10 mg PO DAILY [facility] Stop: 02/04/19 08:59 Last Admin: 12/11/18 09:15 Dose: 10 mg Lorazepam (Ativan) 0.5 mg PO Q4HR PRN; Protocol PRN Reason: Anxiety Stop: 01/05/19 00:15 Multivitamins/Vitamin C (Theragran) 1 tab PO DAILY [facility] Stop: 02/04/19 08:59 Last Admin: 12/11/18 09:15 Dose: 1 tab Olanzapine (Zyprexa) 10 mg PO BID [facility]; Protocol Stop: 02/04/19 08:59 Last Admin: 12/11/18 09:15 Dose: 10 mg Zolpidem Tartrate (Ambien) 5 mg PO HS PRN PRN Reason: Insomnia Stop: 02/03/19 21:44 General: No acute distress HEENT: Atraumatic Neck: Supple, JVD, Thyromegaly Cardiovascular: Regular rate, Normal S1, Normal S2 Lungs: Clear to auscultation Abdomen: Bowel sounds, Soft Assessment/Plan - Assessment Assessment: 1.DM. 2.HTN. 3.COPD. 4.PSYCHOSIS. - Plan Plan: continue current treatment Nutritional Asmnt/Malnutr-PDOC - Dietary Evaluation Malnutrition Findings (Please click <Entered> for more info): Nutritional Asmnt/Malnutrition Start: 12/06/18 16: 54 Text: Status: Complete Freq: Protocol: Document 12/06/18 16:54 LCHENG (Rec: 12/06/18 17:11 LCHENG [email or web address]) Nutritional Asmnt/Malnutrition Patient General Information Nutritional Screening High Risk Consult Diagnosis psychosis NOS Pertinent Medical Hx/Surgical Hx DM, schizophrenia Subjective Information Pt not seen in room or dining room at time of visit. Current Diet Order/ Nutrition Support regular Pertinent Medications colace, theragran Pertinent Labs 12/05 BUN 39, Cr 2.0, Glucose 348, POC 181-279 Nutritional Hx/Data Height 1.68 m Height (Calculated Centimeters) 167.6 Current Weight (lbs) 73.482 kg Weight (Calculated Kilograms) 73.5 Weight (Calculated Grams) 98193.0 [place] Body Weight 142 Body Mass Index (BMI) 26.1 Weight Status Overweight GI Symptoms GI Symptoms None Last BM not indicated Difficult in: None Skin Integrity/Comment: intact Estimated Nutritional Goals BEE in Kcals: Using Current wt Calories/Kcals/Kg 23-27 Kcals Calculated 9230-0933 Protein: Using Current wt Protein g/k Protein Calculated 74 Fluid: ml 1702-1998ml (1ml/kcal) Nutritional Problem 1. Problem Problem altered nutrition related labs Etiology hyperglycemia Signs/Symptoms: glucose 348, POC 181 Malnutrition Alert Is there a minimum of two criteria No selected? Query Text:Check all the applicable criteria. A minimum of two criteria are recommended for diagnosis of either severe or non-severe malnutrition. Malnutrition Related to Morbid Obesity Malnutrition related to morbid obesity No Intervention/Recommendation Comments 1. Recommend to add CCHO-60gm diet d/t hyperglycemia. ESHA Dawn notified. 2. Monitor PO intake, wt, labs and skin integrity 3. F/U as high risk in 2-3 days Expected Outcomes/Goals Expected Outcomes/Goals 1. PO intake to meet at least 75% of nutritional needs. 2. Wt stability, skin to remain intact, labs to approach WNL.
[2018-12-12] MEDS: INSULIN LISPRO SLIDING SCALE 100 UNITS/ML UNIT SUBQ SCH ×3 (06:53→20:50)
[2018-12-12] MEDS: Multivitamin Tab PO SCH (09:54)
--- NOTE | 2018-12-12 13:52 | Progress Notes ---
DATE: 12/12/2018 SUBJECTIVE: The patient is currently in the hospital; oriented to name, not place; does not really know why he is in the hospital; no aggressive behaviors; unkempt; still unclear where he is going to go when he leaves here. Staff noting he remains repetitive, forgetful. Per health services information specialist note, the patient is residing at [place]; however, still talking about moving to [place] repetitive and ruminative in this regard. Some grandiosity is noted. Sleeping fairly well. Eating fairly well. Medications were noted. ASSESSMENT: The patient is confused, some disorientation noted, delusions. PLAN: We will continue to monitor. The patient seems generally calmer, no combative behaviors. JOB# [id number]
--- NOTE | 2018-12-12 19:03 | General Progress Note ---
Subjective - Review of Systems Service Date: 12/12/18 Subjective: resting comfortably no distress Objective - Results Result Diagrams: 12/05/18 19:30 12/05/18 19: Recent Labs: Laboratory Last Values WBC 8.1 Th/cmm (4.8-10.8) 12/05/18: RBC 5.14 Mil/cmm (3.80-5.80) 12/05/18: Hgb 15.0 gm/dL (12-16) 12/05/18: Hct 45.2 % (41.0-60) 12/05/18: MCV 87.9 fl (80-99) 12/05/18: MCH 29.1 pg (27.0-31.0) 12/05/18: MCHC Differential 33.1 pg (28.0-36.0) 12/05/18: RDW 13.5 % (11.5-20.0) 12/05/18: Plt Count 211 Th/cmm (150-400) 12/05/18: MPV 7.7 fl 12/05/18: Neutrophils % 68.9 % (40.0-80.0) 12/05/18: Lymphocytes % 18.6 % (20.0-50.0) L 12/05/18: Monocytes % 6.5 % (2.0-10.0) 12/05/18: Eosinophils % 5.0 % (0.0-5.0) 12/05/18: Basophils % 1.0 % (0.0-2.0) 12/05/18: Sodium 138 mEq/L (136-145) 12/05/18: Potassium 4.5 mEq/L (3.5-5.1) 12/05/18: Chloride 104 mEq/L (98-107) 12/05/18: Carbon Dioxide 26.6 mEq/L (21.0-31.0) 12/05/18: Anion Gap 11.9 (7.0-16.0) 12/05/18: BUN 39 mg/dL (7-25) H 12/05/18:30 Creatinine 2.0 mg/dL (0.7-1.3) H 12/05/18 19:30 Est GFR ( Amer) 42.8 ml/min (>90) 12/05/18 19:30 Est GFR (Non-Af Amer) 35.4 ml/min 12/05/18 19:30 BUN/Creatinine Ratio 19.5 12/05/18 19:30 Glucose 348 mg/dL (70-105) H 12/05/18 19:30 POC Glucose 210 MG/DL (70 - 105) H 12/11/18 19:58 Random Insulin 16.6 uIU/mL (2.6-24.9) 12/05/18 19:30 Calcium 9.6 mg/dL (8.6-10.3) 12/05/18 19:30 Total Bilirubin 0.5 mg/dL (0.3-1.0) 12/05/18 19:30 AST 12 U/L (13-39) L 12/05/18 19:30 ALT 11 U/L (7-52) 12/05/18 19:30 Alkaline Phosphatase 45 U/L (34-104) 12/05/18 19:30 Total Protein 7.2 gm/dL (6.0-8.3) 12/05/18 19:30 Albumin 4.3 gm/dL (4.2-5.5) 12/05/18 19:30 Globulin 2.9 gm/dL 12/05/18 19:30 Albumin/Globulin Ratio 1.5 (1.0-1.8) 12/05/18 19:30 Triglycerides 84 mg/dL (<150) 12/05/18 19:30 Cholesterol 92 mg/dL (<200) 12/05/18 19:30 LDL Cholesterol Direct 28 mg/dL (75-193) L 12/05/18 19:30 HDL Cholesterol 52 mg/dL (23-92) 12/05/18 19:30 Urine Source CLEAN C 12/05/18 20:10 Urine Color YELLOW 12/05/18 20:10 Urine Clarity CLEAR (CLEAR) 12/05/18 20:10 Urine pH 6.0 (4.6 - 8.0) 12/05/18 20:10 Ur Specific [place] 1.010 (1.005-1.030) 12/05/18 20:10 Urine Protein NEGATIVE mg/dL (NEGATIVE) 12/05/18 20:10 Urine Glucose (UA) 250 mg/dL (NEGATIVE) H 12/05/18 20:10 Urine Ketones NEGATIVE mg/dL (NEGATIVE) 12/05/18 20:10 Urine Blood NEGATIVE (NEGATIVE) 12/05/18 20:10 Urine Nitrate NEGATIVE (NEGATIVE) 12/05/18 20:10 Urine Bilirubin NEGATIVE (NEGATIVE) 12/05/18 20:10 Urine Urobilinogen 0.2 E.U./dL (0.2 - 1.0) 12/05/18 20:10 Ur Leukocyte Esterase NEGATIVE (NEGATIVE) 12/05/18 20:10 Urine RBC NONE SEEN /hpf (0-5) 12/05/18 20:10 Urine WBC 0-2 /hpf (0-5) 12/05/18 20:10 Ur Epithelial Cells NONE SEEN /lpf (FEW) 12/05/18 20:10 Urine Bacteria FEW /hpf (NONE SEEN) 12/05/18 20:10 - Physical Exam Vitals and I&O: Vital Signs Temp 97.6 F 12/12/18 14:00 Pulse 84 12/12/18 14:00 Resp 20 12/12/18 14:00 BP 120/65 12/12/18 14:00 Pulse Ox 97 12/12/18 14:00 Intake & Output 12/12/18 12/12/18 12/13/18 06:59 18:59 06:59 Intake Total 240 800 Balance 240 800 Intake: Oral 240 800 Other: # Voids 2 3 # Bowel Movements 1 Active Medications: Current Medications Acetaminophen (Tylenol) 650 mg PO Q4HR PRN PRN Reason: Pain (Mild) Stop: 02/04/19 00:31 Dextrose (D50w) 50 ml IVP PRN PRN PRN Reason: Blood Glucose less than 70 Stop: 02/04/19 19:36 Dextrose (Glutose 40%) 18.75 gm PO PRN PRN PRN Reason: Blood Glucose less than 70 Stop: 02/04/19 19:36 Docusate Sodium (Colace) 250 mg PO DAILY GAURAV Stop: 02/04/19 08:59 Last Admin: 12/12/18 09:56 Dose: Not Given Glucagon (Glucagen) 1 mg IM PRN PRN PRN Reason: Blood Glucose less than 70 Stop: 02/04/19 19:36 Insulin Human Lispro (Humalog Insulin Sliding Scale) 0 units SUBQ ACHS [facility]; Protocol Stop: 02/04/19 20:59 Last Admin: 12/12/18 11:00 Dose: Not Given Lisinopril (Zestril) 10 mg PO DAILY GAURAV Stop: 02/04/19 08:59 Last Admin: 12/12/18 09:55 Dose: 10 mg Lorazepam (Ativan) 0.5 mg PO Q4HR PRN; Protocol PRN Reason: Anxiety Stop: 01/05/19 00:15 Last Admin: 12/12/18 14:44 Dose: 0.5 mg Multivitamins/Vitamin C (Theragran) 1 tab PO DAILY GAURAV Stop: 02/04/19 08:59 Last Admin: 12/12/18 09:54 Dose: 1 tab Olanzapine (Zyprexa) 10 mg PO BID [facility]; Protocol Stop: 02/04/19 08:59 Last Admin: 12/12/18 17:14 Dose: 10 mg Zolpidem Tartrate (Ambien) 5 mg PO HS PRN PRN Reason: Insomnia Stop: 02/03/19 21:44 General: No acute distress HEENT: Atraumatic Neck: Supple, JVD, Thyromegaly Cardiovascular: Regular rate, Normal S1, Normal S2 Lungs: Clear to auscultation Abdomen: Bowel sounds, Soft Assessment/Plan - Assessment Assessment: 1.DM. 2.HTN. 3.COPD. 4.PSYCHOSIS. - Plan Plan: continue current treatment Nutritional Asmnt/Malnutr-PDOC - Dietary Evaluation Malnutrition Findings (Please click <Entered> for more info): Nutritional Asmnt/Malnutrition Start: 12/06/18 16: 54 Text: Status: Complete Freq: Protocol: Document 12/06/18 16:54 LCHENG (Rec: 12/06/18 17:11 [email or web address]) Nutritional Asmnt/Malnutrition Patient General Information Nutritional Screening High Risk Consult Diagnosis psychosis NOS Pertinent Medical Hx/Surgical Hx DM, schizophrenia Subjective Information Pt not seen in room or dining room at time of visit. Current Diet Order/ Nutrition Support regular Pertinent Medications colace, theragran Pertinent Labs 12/05 BUN 39, Cr 2.0, Glucose 348, POC 181-279 Nutritional Hx/Data Height 1.68 m Height (Calculated Centimeters) 167.6 Current Weight (lbs) 73.482 kg Weight (Calculated Kilograms) 73.5 Weight (Calculated Grams) 37226.0 [place] Body Weight 142 Body Mass Index (BMI) 26.1 Weight Status Overweight GI Symptoms GI Symptoms None Last BM not indicated Difficult in: None Skin Integrity/Comment: intact Estimated Nutritional Goals BEE in Kcals: Using Current wt Calories/Kcals/Kg 23-27 Kcals Calculated 9653-5256 Protein: Using Current wt Protein g/k Protein Calculated 74 Fluid: ml 1702-1998ml (1ml/kcal) Nutritional Problem 1. Problem Problem altered nutrition related labs Etiology hyperglycemia Signs/Symptoms: glucose 348, POC 181 Malnutrition Alert Is there a minimum of two criteria No selected? Query Text:Check all the applicable criteria. A minimum of two criteria are recommended for diagnosis of either severe or non-severe malnutrition. Malnutrition Related to Morbid Obesity Malnutrition related to morbid obesity No Intervention/Recommendation Comments 1. Recommend to add CCHO-60gm diet d/t hyperglycemia. ESHA Dawn notified. 2. Monitor PO intake, wt, labs and skin integrity 3. F/U as high risk in 2-3 days Expected Outcomes/Goals Expected Outcomes/Goals 1. PO intake to meet at least 75% of nutritional needs. 2. Wt stability, skin to remain intact, labs to approach WNL.
[2018-12-13] MEDS: INSULIN LISPRO SLIDING SCALE 100 UNITS/ML UNIT SUBQ SCH ×5 (06:45→20:35)
[2018-12-13] MEDS: Multivitamin Tab PO SCH (09:01)
--- NOTE | 2018-12-13 14:28 | General Progress Note ---
Subjective - Review of Systems Service Date: 12/13/18 Subjective: resting comfortably no distress Objective - Results Result Diagrams: 12/05/18 19:30 12/05/18 19: Recent Labs: Laboratory Last Values WBC 8.1 Th/cmm (4.8-10.8) 12/05/18 19: RBC 5.14 Mil/cmm (3.80-5.80) 12/05/18: Hgb 15.0 gm/dL (12-16) 12/05/18: Hct 45.2 % (41.0-60) 12/05/18: MCV 87.9 fl (80-99) 12/05/18: MCH 29.1 pg (27.0-31.0) 12/05/18: MCHC Differential 33.1 pg (28.0-36.0) 12/05/18: RDW 13.5 % (11.5-20.0) 12/05/18: Plt Count 211 Th/cmm (150-400) 12/05/18: MPV 7.7 fl 12/05/18: Neutrophils % 68.9 % (40.0-80.0) 12/05/18: Lymphocytes % 18.6 % (20.0-50.0) L 12/05/18: Monocytes % 6.5 % (2.0-10.0) 12/05/18: Eosinophils % 5.0 % (0.0-5.0) 12/05/18: Basophils % 1.0 % (0.0-2.0) 12/05/18: Sodium 138 mEq/L (136-145) 12/05/18: Potassium 4.5 mEq/L (3.5-5.1) 12/05/18: Chloride 104 mEq/L (98-107) 12/05/18: Carbon Dioxide 26.6 mEq/L (21.0-31.0) 12/05/18: Anion Gap 11.9 (7.0-16.0) 12/05/18: BUN 39 mg/dL (7-25) H 12/05/18:30 Creatinine 2.0 mg/dL (0.7-1.3) H 12/05/18 19:30 Est GFR ( Amer) 42.8 ml/min (>90) 12/05/18 19:30 Est GFR (Non-Af Amer) 35.4 ml/min 12/05/18 19:30 BUN/Creatinine Ratio 19.5 12/05/18 19:30 Glucose 348 mg/dL (70-105) H 12/05/18 19:30 POC Glucose 210 MG/DL (70 - 105) H 12/11/18 19:58 Random Insulin 16.6 uIU/mL (2.6-24.9) 12/05/18 19:30 Calcium 9.6 mg/dL (8.6-10.3) 12/05/18 19:30 Total Bilirubin 0.5 mg/dL (0.3-1.0) 12/05/18 19:30 AST 12 U/L (13-39) L 12/05/18 19:30 ALT 11 U/L (7-52) 12/05/18 19:30 Alkaline Phosphatase 45 U/L (34-104) 12/05/18 19:30 Total Protein 7.2 gm/dL (6.0-8.3) 12/05/18 19:30 Albumin 4.3 gm/dL (4.2-5.5) 12/05/18 19:30 Globulin 2.9 gm/dL 12/05/18 19:30 Albumin/Globulin Ratio 1.5 (1.0-1.8) 12/05/18 19:30 Triglycerides 84 mg/dL (<150) 12/05/18 19:30 Cholesterol 92 mg/dL (<200) 12/05/18 19:30 LDL Cholesterol Direct 28 mg/dL (75-193) L 12/05/18 19:30 HDL Cholesterol 52 mg/dL (23-92) 12/05/18 19:30 Urine Source CLEAN C 12/05/18 20:10 Urine Color YELLOW 12/05/18 20:10 Urine Clarity CLEAR (CLEAR) 12/05/18 20:10 Urine pH 6.0 (4.6 - 8.0) 12/05/18 20:10 Ur Specific [place] 1.010 (1.005-1.030) 12/05/18 20:10 Urine Protein NEGATIVE mg/dL (NEGATIVE) 12/05/18 20:10 Urine Glucose (UA) 250 mg/dL (NEGATIVE) H 12/05/18 20:10 Urine Ketones NEGATIVE mg/dL (NEGATIVE) 12/05/18 20:10 Urine Blood NEGATIVE (NEGATIVE) 12/05/18 20:10 Urine Nitrate NEGATIVE (NEGATIVE) 12/05/18 20:10 Urine Bilirubin NEGATIVE (NEGATIVE) 12/05/18 20:10 Urine Urobilinogen 0.2 E.U./dL (0.2 - 1.0) 12/05/18 20:10 Ur Leukocyte Esterase NEGATIVE (NEGATIVE) 12/05/18 20:10 Urine RBC NONE SEEN /hpf (0-5) 12/05/18 20:10 Urine WBC 0-2 /hpf (0-5) 12/05/18 20:10 Ur Epithelial Cells NONE SEEN /lpf (FEW) 12/05/18 20:10 Urine Bacteria FEW /hpf (NONE SEEN) 12/05/18 20:10 - Physical Exam Vitals and I&O: Vital Signs Temp 98 F 12/13/18 06:14 Pulse 81 12/13/18 09:00 Resp 19 12/13/18 06:14 BP 143/59 12/13/18 09:00 Pulse Ox 97 12/13/18 06:14 Intake & Output 12/12/18 12/13/18 12/13/18 18:59 06:59 18:59 Intake Total 800 480 Balance 800 480 Intake: Oral 800 480 Other: # Voids 3 1 # Bowel Movements 1 Active Medications: Current Medications Acetaminophen (Tylenol) 650 mg PO Q4HR PRN PRN Reason: Pain (Mild) Stop: 02/04/19 00:31 Dextrose (D50w) 50 ml IVP PRN PRN PRN Reason: Blood Glucose less than 70 Stop: 02/04/19 19:36 Dextrose (Glutose 40%) 18.75 gm PO PRN PRN PRN Reason: Blood Glucose less than 70 Stop: 02/04/19 19:36 Docusate Sodium (Colace) 250 mg PO DAILY GAURAV Stop: 02/04/19 08:59 Last Admin: 12/13/18 09:00 Dose: 250 mg Glucagon (Glucagen) 1 mg IM PRN PRN PRN Reason: Blood Glucose less than 70 Stop: 02/04/19 19:36 Insulin Human Lispro (Humalog Insulin Sliding Scale) 0 units SUBQ ACHS [facility]; Protocol Stop: 02/04/19 20:59 Last Admin: 12/13/18 11:47 Dose: 3 units Lisinopril (Zestril) 10 mg PO DAILY GAURAV Stop: 02/04/19 08:59 Last Admin: 12/13/18 09:00 Dose: 10 mg Lorazepam (Ativan) 0.5 mg PO Q4HR PRN; Protocol PRN Reason: Anxiety Stop: 01/05/19 00:15 Last Admin: 12/12/18 14:44 Dose: 0.5 mg Multivitamins/Vitamin C (Theragran) 1 tab PO DAILY GAURAV Stop: 02/04/19 08:59 Last Admin: 12/13/18 09:01 Dose: 1 tab Olanzapine (Zyprexa) 10 mg PO BID [facility]; Protocol Stop: 02/04/19 08:59 Last Admin: 12/13/18 09:00 Dose: 10 mg Zolpidem Tartrate (Ambien) 5 mg PO HS PRN PRN Reason: Insomnia Stop: 02/03/19 21:44 General: No acute distress HEENT: Atraumatic Neck: Supple, JVD, Thyromegaly Cardiovascular: Regular rate, Normal S1, Normal S2 Lungs: Clear to auscultation Abdomen: Bowel sounds, Soft Assessment/Plan - Assessment Assessment: 1.DM. 2.HTN. 3.COPD. 4.PSYCHOSIS. - Plan Plan: continue current treatment Nutritional Asmnt/Malnutr-PDOC - Dietary Evaluation Malnutrition Findings (Please click <Entered> for more info): Nutritional Asmnt/Malnutrition Start: 12/06/18 16: 54 Text: Status: Complete Freq: Protocol: Document 12/06/18 16:54 LCHENG (Rec: 12/06/18 17:11 [email or web address]) Nutritional Asmnt/Malnutrition Patient General Information Nutritional Screening High Risk Consult Diagnosis psychosis NOS Pertinent Medical Hx/Surgical Hx DM, schizophrenia Subjective Information Pt not seen in room or dining room at time of visit. Current Diet Order/ Nutrition Support regular Pertinent Medications colace, theragran Pertinent Labs 12/05 BUN 39, Cr 2.0, Glucose 348, POC 181-279 Nutritional Hx/Data Height 1.68 m Height (Calculated Centimeters) 167.6 Current Weight (lbs) 73.482 kg Weight (Calculated Kilograms) 73.5 Weight (Calculated Grams) 90872.0 [place] Body Weight 142 Body Mass Index (BMI) 26.1 Weight Status Overweight GI Symptoms GI Symptoms None Last BM not indicated Difficult in: None Skin Integrity/Comment: intact Estimated Nutritional Goals BEE in Kcals: Using Current wt Calories/Kcals/Kg 23-27 Kcals Calculated 3473-1891 Protein: Using Current wt Protein g/k Protein Calculated 74 Fluid: ml 1702-1997ml (1ml/kcal) Nutritional Problem 1. Problem Problem altered nutrition related labs Etiology hyperglycemia Signs/Symptoms: glucose 348, POC 181 Malnutrition Alert Is there a minimum of two criteria No selected? Query Text:Check all the applicable criteria. A minimum of two criteria are recommended for diagnosis of either severe or non-severe malnutrition. Malnutrition Related to Morbid Obesity Malnutrition related to morbid obesity No Intervention/Recommendation Comments 1. Recommend to add CCHO-60gm diet d/t hyperglycemia. ESHA Dawn notified. 2. Monitor PO intake, wt, labs and skin integrity 3. F/U as high risk in 2-3 days Expected Outcomes/Goals Expected Outcomes/Goals 1. PO intake to meet at least 75% of nutritional needs. 2. Wt stability, skin to remain intact, labs to approach WNL.
[2018-12-14] MEDS: INSULIN LISPRO SLIDING SCALE 100 UNITS/ML UNIT SUBQ SCH ×5 (06:36→20:34)
[2018-12-14] MEDS: Multivitamin Tab PO SCH (09:06)
--- NOTE | 2018-12-14 13:55 | Progress Notes ---
DATE: 12/13/2018 SUBJECTIVE: Chart reviewed and the patient interviewed. Also discussed the patient's condition with the staff and reviewed records and labs. The patient continued to be in irritable and angry mood. The patient also is still easily agitated. The patient also still has mood swings and is still confused, forgetful, and needs redirections. Otherwise, the patient is compliance with taking his Zyprexa with no side effects. ASSESSMENT: The patient is still agitated and psychotic. TREATMENT PLAN: Continue to monitor his condition and his medications closely and continue to monitor psychotropic medications. Also, working on placement issue and discharge plans. JOB# [id number]
--- NOTE | 2018-12-14 21:16 | Internal Medicine Prog Note ---
Internal Medicine Subjective - Subjective Service Date: 12/14/18 Patient seen and examined:: without staff Patient is:: awake, verbal, ambulating, talking Per staff patient has:: no adverse event (HE FEELS WELL,LESS COUGHING.) Internal Medicine Objective - Results Result Diagrams: 12/05/18 19:12/05/18 Recent Labs: Laboratory Last Values WBC 8.1 Th/cmm (4.8-10.8) 12/05/18: RBC 5.14 Mil/cmm (3.80-5.80) 12/05/18 Hgb 15.0 gm/dL (12-16) 12/05/18 Hct 45.2 % (41.0-60) 12/05/18 MCV 87.9 fl (80-99) 12/05/18 MCH 29.1 pg (27.0-31.0) 12/05/18 MCHC Differential 33.1 pg (28.0-36.0) 12/05/18 RDW 13.5 % (11.5-20.0) 12/05/18 Plt Count 211 Th/cmm (150-400) 12/05/18 MPV 7.7 fl 12/05/18 Neutrophils % 68.9 % (40.0-80.0) 12/05/18 Lymphocytes % 18.6 % (20.0-50.0) L 12/05/18 Monocytes % 6.5 % (2.0-10.0) 12/05/18 Eosinophils % 5.0 % (0.0-5.0) 12/05/18 Basophils % 1.0 % (0.0-2.0) 12/05/18 Sodium 138 mEq/L (136-145) 12/05/18 Potassium 4.5 mEq/L (3.5-5.1) 12/05/18 Chloride 104 mEq/L (98-107) 12/05/18: Carbon Dioxide 26.6 mEq/L (21.0-31.0) 12/05/18 Anion Gap 11.9 (7.0-16.0) 12/05/18 19:30 BUN 39 mg/dL (7-25) H 12/05/18 19:30 Creatinine 2.0 mg/dL (0.7-1.3) H 12/05/18 19:30 Est GFR ( Amer) 42.8 ml/min (>90) 12/05/18 19:30 Est GFR (Non-Af Amer) 35.4 ml/min 12/05/18 19:30 BUN/Creatinine Ratio 19.5 12/05/18 19:30 Glucose 348 mg/dL (70-105) H 12/05/18 19:30 POC Glucose 196 MG/DL (70 - 105) H 12/14/18 19:32 Random Insulin 16.6 uIU/mL (2.6-24.9) 12/05/18: Calcium 9.6 mg/dL (8.6-10.3) 12/05/18: Total Bilirubin 0.5 mg/dL (0.3-1.0) 12/05/18: AST 12 U/L (13-39) L 12/05/18:30 ALT 11 U/L (7-52) 12/05/18:30 Alkaline Phosphatase 45 U/L (34-104) 12/05/18:30 Total Protein 7.2 gm/dL (6.0-8.3) 12/05/18:30 Albumin 4.3 gm/dL (4.2-5.5) 12/05/18: Globulin 2.9 gm/dL 12/05/18: Albumin/Globulin Ratio 1.5 (1.0-1.8) 12/05/18 19:30 Triglycerides 84 mg/dL (<150) 12/05/18 19:30 Cholesterol 92 mg/dL (<200) 12/05/18 19:30 LDL Cholesterol Direct 28 mg/dL (75-193) L 12/05/18:30 HDL Cholesterol 52 mg/dL (23-92) 12/05/18 19:30 Urine Source CLEAN C 12/05/18 20:10 Urine Color YELLOW 12/05/18 20:10 Urine Clarity CLEAR (CLEAR) 12/05/18 20:10 Urine pH 6.0 (4.6 - 8.0) 12/05/18 20:10 Ur Specific [place] 1.010 (1.005-1.030) 12/05/18 20:10 Urine Protein NEGATIVE mg/dL (NEGATIVE) 12/05/18 20:10 Urine Glucose (UA) 250 mg/dL (NEGATIVE) H 12/05/18 20:10 Urine Ketones NEGATIVE mg/dL (NEGATIVE) 12/05/18 20:10 Urine Blood NEGATIVE (NEGATIVE) 12/05/18 20:10 Urine Nitrate NEGATIVE (NEGATIVE) 12/05/18 20:10 Urine Bilirubin NEGATIVE (NEGATIVE) 12/05/18 20:10 Urine Urobilinogen 0.2 E.U./dL (0.2 - 1.0) 12/05/18 20:10 Ur Leukocyte Esterase NEGATIVE (NEGATIVE) 12/05/18 20:10 Urine RBC NONE SEEN /hpf (0-5) 12/05/18 20:10 Urine WBC 0-2 /hpf (0-5) 12/05/18 20:10 Ur Epithelial Cells NONE SEEN /lpf (FEW) 12/05/18 20:10 Urine Bacteria FEW /hpf (NONE SEEN) 12/05/18 20:10 - Physical Exam Vitals and I&O: Vital Signs Temp 97.7 F 12/14/18 20:16 Pulse 79 12/14/18 20:16 Resp 20 12/14/18 20:16 BP 129/83 12/14/18 20:16 Pulse Ox 98 12/14/18 20:16 Intake & Output 12/14/18 12/14/18 12/15/18 06:59 18:59 06:59 Intake Total 720 120 Balance 720 120 Intake: Oral 720 120 Other: # Voids 1 3 # Bowel Movements 0 Active Medications: Current Medications Acetaminophen (Tylenol) 650 mg PO Q4HR PRN PRN Reason: Pain (Mild) Stop: 02/04/19 00:31 Dextrose (D50w) 50 ml IVP PRN PRN PRN Reason: Blood Glucose less than 70 Stop: 02/04/19 19:36 Dextrose (Glutose 40%) 18.75 gm PO PRN PRN PRN Reason: Blood Glucose less than 70 Stop: 02/04/19 19:36 Docusate Sodium (Colace) 250 mg PO DAILY [facility] Stop: 02/04/19 08:59 Last Admin: 12/14/18 09:06 Dose: 250 mg Glucagon (Glucagen) 1 mg IM PRN PRN PRN Reason: Blood Glucose less than 70 Stop: 02/04/19 19:36 Insulin Human Lispro (Humalog Insulin Sliding Scale) 0 units SUBQ ACHS [facility]; Protocol Stop: 02/04/19 20:59 Last Admin: 12/14/18 20:34 Dose: 3 units Lisinopril (Zestril) 10 mg PO DAILY [facility] Stop: 02/04/19 08:59 Last Admin: 12/14/18 09:06 Dose: 10 mg Lorazepam (Ativan) 0.5 mg PO Q4HR PRN; Protocol PRN Reason: Anxiety Stop: 01/05/19 00:15 Last Admin: 12/12/18 14:44 Dose: 0.5 mg Multivitamins/Vitamin C (Theragran) 1 tab PO DAILY [facility] Stop: 02/04/19 08:59 Last Admin: 12/14/18 09:06 Dose: 1 tab Olanzapine (Zyprexa) 10 mg PO BID [facility]; Protocol Stop: 02/04/19 08:59 Last Admin: 12/14/18 16:31 Dose: 10 mg Zolpidem Tartrate (Ambien) 5 mg PO HS PRN PRN Reason: Insomnia Stop: 02/03/19 21:44 Last Admin: 12/13/18 20:33 Dose: 5 mg General: alert, demented HEENT: NC/AT, PERRLA, EOMI, anicteric sclerae, throat clear Neck: Supple, No JVD, No thyromegaly, +2 carotid pulse wo bruit, No LAD Lungs: CTAB, congested, wheezing Cardiovascular: RRR, Normal S1, Normal S2, without murmur Abdomen: soft, non-tender, non-distended Neurological: no change Internal Medicine Assmt/Plan - Assessment Assessment: 1.DM. 2.HTN. 3.COPD. 4.PSYCHOSIS. - Plan Plan: CONTINUE ON CURRENT MEDICATION AND DIET. Nutritional Asmnt/Malnutr-PDOC - Dietary Evaluation Malnutrition Findings (Please click <Entered> for more info): Nutritional Asmnt/Malnutrition Start: 12/06/18 16: 54 Text: Status: Complete Freq: Protocol: Document 12/06/18 16:54 [email or web address] (Rec: 12/06/18 17:11 [email or web address]) Nutritional Asmnt/Malnutrition Patient General Information Nutritional Screening High Risk Consult Diagnosis psychosis NOS Pertinent Medical Hx/Surgical Hx DM, schizophrenia Subjective Information Pt not seen in room or dining room at time of visit. Current Diet Order/ Nutrition Support regular Pertinent Medications colace, theragran Pertinent Labs 12/05 BUN 39, Cr 2.0, Glucose 348, POC 181-279 Nutritional Hx/Data Height 1.68 m Height (Calculated Centimeters) 167.6 Current Weight (lbs) 73.482 kg Weight (Calculated Kilograms) 73.5 Weight (Calculated Grams) 01400.0 [place] Body Weight 142 Body Mass Index (BMI) 26.1 Weight Status Overweight GI Symptoms GI Symptoms None Last BM not indicated Difficult in: None Skin Integrity/Comment: intact Estimated Nutritional Goals BEE in Kcals: Using Current wt Calories/Kcals/Kg 23-27 Kcals Calculated 4970-6762 Protein: Using Current wt Protein g/k Protein Calculated 74 Fluid: ml 1702-1998ml (1ml/kcal) Nutritional Problem 1. Problem Problem altered nutrition related labs Etiology hyperglycemia Signs/Symptoms: glucose 348, POC 181 Malnutrition Alert Is there a minimum of two criteria No selected? Query Text:Check all the applicable criteria. A minimum of two criteria are recommended for diagnosis of either severe or non-severe malnutrition. Malnutrition Related to Morbid Obesity Malnutrition related to morbid obesity No Intervention/Recommendation Comments 1. Recommend to add CCHO-60gm diet d/t hyperglycemia. ESHA Dawn notified. 2. Monitor PO intake, wt, labs and skin integrity 3. F/U as high risk in 2-3 days Expected Outcomes/Goals Expected Outcomes/Goals 1. PO intake to meet at least 75% of nutritional needs. 2. Wt stability, skin to remain intact, labs to approach WNL.
[2018-12-14] MEDS ORDERED: guaiFENesin 200 MG/10 ML UDC PO PRN (21:30)
--- NOTE | 2018-12-14 22:24 | Progress Notes ---
DATE: 12/14/2018 SUBJECTIVE: Chart reviewed and the patient interviewed. Also discussed the patient's condition with the staff and reviewed records and labs. The patient is still anxious and is still able to verbalize his needs. Also has a decreased the level of agitation. The patient is not as agitated. The patient also is cooperative and compliant with taking his medications with no side effect of medications. ASSESSMENT: The patient showed some improvement. TREATMENT PLAN: Continue to monitor behavior and condition closely. Also contacted the [facility] for evaluation of the patient, to be accepted. They also will continue adjusting his psychotropic medications, continue Zyprexa 10 mg twice a day, and follow up closely. JOB# [id number]
[2018-12-15] MEDS: INSULIN LISPRO SLIDING SCALE 100 UNITS/ML UNIT SUBQ SCH ×2 (06:38→11:08)
[2018-12-15] MEDS: Multivitamin Tab PO SCH (09:09)
--- NOTE | 2018-12-15 19:54 | Discharge Summary ---
DATE OF DISCHARGE: 12/15/2018 FINAL DIAGNOSIS: Schizophrenia. REASON FOR HOSPITALIZATION: The patient was admitted to the hospital because of increased agitation and aggressive behavior and the patient is a poor historian and unable to follow directions. HOSPITAL COURSE: The patient continued to be agitated and in irritable mood. The patient also was restless and aggressive. The patient was started on Zyprexa and the dose adjusted to 10 mg twice a day. Gradually, the patient's affect was brighter. The patient was less agitated and less irritable. Also, was interacting more. The patient was discharged from the hospital because of improvement and calm. Physical exam of the patient showed no major medical problems while in the hospital. AFTER DISCHARGE PLANS: The patient discharged from the hospital with plan to continue his treatment in a [facility] where he was accepted since the first [facility] did not accept [facility] patient. [facility] [id number]
== END 2018-12-15 16:20 | DRG 885 ==
LOC: ER 18:31 → GERO2 21:38 → GERO 21:45
PROVIDERS: ADMIT Psychiatry & Neurology Psychiatry; ATTEND Psychiatry & Neurology Psychiatry
DX: F20.9 Schizophrenia, unspecified (principal); N18.9 Chronic kidney disease, unspecified; J44.9 Chronic obstructive pulmonary disease, unspecified; F29 Unspecified psychosis not due to a substance or known physiological condition; E11.22 Type 2 diabetes mellitus with diabetic chronic kidney disease; I12.9 Hypertensive chronic kidney disease with stage 1 through stage 4 chronic kidney disease, or unspecified chronic kidney disease
CPT/HCPCS: 36415-UA; 80053-TC; 80061-TC; 81001-TC; 82948-90; 83036-90; 83525-90; 85025-TC; G0410; J1815; J7799

== ENCOUNTER 2019-05-31 17:59 | Inpatient (IN) | payer MEDICAID, MEDICARE, OTHER ==
--- NOTE | 2019-05-31 19:42 | ED Physician Chart ---
ED Chief Complaint/HPI - Patient Information Date Seen:: 05/31/19 Time Seen:: 19:42 Chief Complaint:: Agitation and refusing medication History of Present Illness:: 69 yo male was brought from [facility] to ER due to the fact that pt was refusing meds , hallucinating, yelling, and striking out to staff and residents. Allergies:: Allergies Allergy/AdvReac Type Severity Reaction Status Date / Time No Known Allergies Allergy Verified 12/05/18 18:58 Vitals:: Vital Signs - 8 hr 05/31/19 18:37 Temp 96 F HR 82 RR 18 BP 121/76 O2 Sat % 96 ED Review of Systems - Review of Systems General/Constitutional: No fever, No chills Skin: No rash Head: No headache Eyes: No pain ENT: No nasal drainage Neck: No neck pain Cardio Vascular: No chest pain Pulmonary: No SOB GI: No nausea, No vomiting Musculoskeletal: No bone or joint pain Psychiatric: Auditory hallucination Neurological: No focal symptoms ED Past Medical History - Past Medical History Past Medical History: HTN Social History: Non Smoker, No Alcohol, No Drug Use Family Medical History - Family Member Mother History Unknown: Yes ED Physical Exam - Physical Examination General/Constitutional: Awake, Alert Head: Atraumatic Eyes: PERRL, EOMI Skin: No skin lesions ENMT: Nasal exam nl Neck: No nuchal rigidity Respiratory: Clear to Auscultation Cardio Vascular: RRR, No murmur, gallop, rubs, NL S1 S2 GI: No tenderness/rebounding/guarding Extremities: normal strength in all extremities Neuro/Psych: Alert/oriented (x 1), No focal deficits ED Labs/Radiology/EKG Results - Lab Results Results: Laboratory Last Values WBC 7.7 Th/cmm (4.8-10.8) 05/31/19 19:55 RBC 5.02 Mil/cmm (3.80-5.80) 05/31/19 19:55 Hgb 14.9 gm/dL (12-16) 05/31/19 19:55 Hct 44.2 % (41.0-60) 05/31/19 19:55 MCV 87.9 fl (80-99) 05/31/19 19:55 MCH 29.6 pg (27.0-31.0) 05/31/19 19:55 MCHC Differential 33.7 pg (28.0-36.0) 05/31/19 19:55 RDW 13.4 % (11.5-20.0) 05/31/19 19:55 Plt Count 234 Th/cmm (150-400) 05/31/19 19:55 MPV 7.3 fl 05/31/19 19:55 Neutrophils % 75.2 % (40.0-80.0) 05/31/19 19:55 Lymphocytes % 18.1 % (20.0-50.0) L 05/31/19 19:55 Monocytes % 4.2 % (2.0-10.0) 05/31/19 19:55 Eosinophils % 2.4 % (0.0-5.0) 05/31/19 19:55 Basophils % 0.1 % (0.0-2.0) 05/31/19 19:55 PT 9.5 SECONDS (9.5-11.5) 05/31/19 19:55 INR 0.91 (0.5-1.4) 05/31/19 19:55 PTT (Actin FS) 28.6 SECONDS (26.0-38.0) 05/31/19 19:55 Sodium 139 mEq/L (136-145) 05/31/19 19:55 Potassium 3.7 mEq/L (3.5-5.1) 05/31/19 19:55 Chloride 106 mEq/L (98-107) 05/31/19 19:55 Carbon Dioxide 25.2 mEq/L (21.0-31.0) 05/31/19 19:55 Anion Gap 11.5 (7.0-16.0) 05/31/19 19:55 BUN 28 mg/dL (7-25) H 05/31/19 19:55 Creatinine 1.9 mg/dL (0.7-1.3) H 05/31/19 19:55 Est GFR ( Amer) 45.3 ml/min (>90) 05/31/19 19:55 Est GFR (Non-Af Amer) 37.4 ml/min 05/31/19 19:55 BUN/Creatinine Ratio 14.7 05/31/19 19:55 Glucose 149 mg/dL (70-105) H 05/31/19 19:55 Calcium 9.4 mg/dL (8.6-10.3) 05/31/19 19:55 Total Bilirubin 0.7 mg/dL (0.3-1.0) 05/31/19 19:55 AST 11 U/L (13-39) L 05/31/19 19:55 ALT 12 U/L (7-52) 05/31/19 19:55 Alkaline Phosphatase 42 U/L (34-104) 05/31/19 19:55 Troponin I 0.01 ng/mL (0.01-0.05) 05/31/19 19:55 B-Natriuretic Peptide 10.1 pg/mL (5.0-100.0) 05/31/19 19:55 Total Protein 6.8 gm/dL (6.0-8.3) 05/31/19 19:55 Albumin 4.2 gm/dL (4.2-5.5) 05/31/19 19:55 Globulin 2.6 gm/dL 05/31/19 19:55 Albumin/Globulin Ratio 1.6 (1.0-1.8) 05/31/19 19:55 TSH 1.55 uIU/ml (0.34-5.60) 05/31/19 19:55 Urine Source MIDSTREAM 05/31/19 20:36 Urine Color YELLOW 05/31/19 20:36 Urine Clarity CLEAR (CLEAR) 05/31/19 20:36 Urine pH 6.0 (4.6 - 8.0) 05/31/19 20:36 Ur Specific [place] <= 1.005 (1.005-1.030) 05/31/19 20:36 Urine Protein NEGATIVE mg/dL (NEGATIVE) 05/31/19 20:36 Urine Glucose (UA) NEGATIVE mg/dL (NEGATIVE) 05/31/19 20:36 Urine Ketones NEGATIVE mg/dL (NEGATIVE) 05/31/19 20:36 Urine Blood TRACE (NEGATIVE) 05/31/19 20:36 Urine Nitrate NEGATIVE (NEGATIVE) 05/31/19 20:36 Urine Bilirubin NEGATIVE (NEGATIVE) 05/31/19 20:36 Urine Urobilinogen 0.2 E.U./dL (0.2 - 1.0) 05/31/19 20:36 Ur Leukocyte Esterase NEGATIVE (NEGATIVE) 05/31/19 20:36 Urine RBC 2-5 /hpf (0-5) H 05/31/19 20:36 Urine WBC 0-2 /hpf (0-5) 05/31/19 20:36 Ur Epithelial Cells OCCASIONAL /lpf (FEW) 05/31/19 20:36 Urine Bacteria FEW /hpf (NONE SEEN) 05/31/19 20:36 Urine Mucus FEW /lpf (FEW) 05/31/19 20:36 - Radiology Results Results: CXR: small left effusion ED Assessment - Assessment General Assessment: Hypertension Dehydration Psychosis Assessment/Comments:: CBC, CMP, BNP, troponin, PT/PTT CXR, EKG Admit to jessie for further evaluation and management ED Septic Shock - . Is Septic Shock (SBP<90, OR Lactate>4 mmol\L) present?: No - <6hrs of presentation: Vital Signs: Vital Signs - 8 hr 05/31/19 18:37 Temp 96 F HR 82 RR 18 BP 121/76 O2 Sat % 96 ED Reassessment (Disposition) - Reassessment Reassessment Condition:: Unchanged - Patient Disposition Discharge/Transfer:: Jessie w/in this hosp Admitting Medical Physician:: Sunny Brown Admitting Psych Physician:: Maritza Georges
[2019-05-31 20:01] LABS: % BASOPHILS 0.1 % (0.0-2.0); % EOSINOPHILS 2.4 % (0.0-5.0); % LYMPHOCYTES 18.1 % (20.0-50.0); % MONOCYTES 4.2 % (2.0-10.0); % NEUTROPHILS 75.2 % (40.0-80.0); EOSINOPHILE ABSOLUTE 0.2 Th/cmm (0.1-0.4); HEMATOCRIT 44.2 % (41.0-60); HEMOGLOBIN 14.9 gm/dL (12-16); LYMPHOCYTE ABSOLUTE 1.4 Th/cmm (1.5-3.0); MEAN CELL VOLUME 87.9 fl (80-99); MEAN CORPUSCULAR HEMOGLOBIN 29.6 pg (27.0-31.0); MEAN CORPUSCULAR HGB CONC 33.7 pg (28.0-36.0); MONOCYTE ABSOLUTE 0.3 Th/cmm (0.3-1.0); NEUTROPHILE ABSOLUTE 5.8 Th/cmm (1.8-8.0); PLATELET COUNT 234 Th/cmm (150-400); RED BLOOD COUNT 5.02 Mil/cmm (3.80-5.80); RED CELL DISTRIBUTION WIDTH 13.4 % (11.5-20.0); WHITE BLOOD COUNT 7.7 Th/cmm (4.8-10.8)
[2019-05-31 20:14] LABS: INR 0.91 (0.5-1.4)
[2019-05-31 20:18] LABS: ALB/GLOB RATIO 1.6 (1.0-1.8); ALBUMIN 4.2 gm/dL (4.2-5.5); ANION GAP 11.5 (7.0-16.0); BILIRUBIN,TOTAL 0.7 mg/dL (0.3-1.0); CALCIUM SERUM 9.4 mg/dL (8.6-10.3); CARBON DIOXIDE 25.2 mEq/L (21.0-31.0); CREATININE - SERUM 1.9 mg/dL (0.7-1.3); GFR AFRICAN-AMERICAN 45.3 ml/min (>90); GFR NON AFRICAN-AMERICAN 37.4 ml/min; POTASSIUM SERUM 3.7 mEq/L (3.5-5.1); TOTAL PROTEIN,SERUM 6.8 gm/dL (6.0-8.3)
[2019-05-31 20:40] LABS: URINE SOURCE MIDSTREAM
[2019-05-31 20:42] LABS: URINE BILIRUBIN NEGATIVE (NEGATIVE); URINE BLOOD TRACE (NEGATIVE); URINE GLUCOSE (UA) NEGATIVE (NEGATIVE); URINE KETONE NEGATIVE (NEGATIVE); URINE LEUKOCYTE ESTERASE NEGATIVE (NEGATIVE); URINE MICROSCOPIC INDICATED? YES; URINE NITRATE NEGATIVE (NEGATIVE); URINE PROTEIN NEGATIVE (NEGATIVE); URINE UROBILINOGEN 0.2 E.U./dL (0.2 - 1.0)
[2019-05-31 20:45] LABS: URINE CLARITY CLEAR (CLEAR); URINE COLOR YELLOW
[2019-05-31 20:49] LABS: URINE BACTERIA FEW /hpf (NONE SEEN); URINE EPITHELIAL CELLS OCCASIONAL /lpf (FEW); URINE WBC 0-2 /hpf (0-5)
[2019-05-31 21:34] VITALS: BP 132/72
[2019-05-31] MEDS ORDERED: Maalox 30 mL Cup PO PRN (21:34)
[2019-05-31] MEDS ORDERED: Magnesium Hydroxide (MOM) 30 mL UDC PO PRN (21:34)
--- NOTE | 2019-06-01 09:40 | Diagnostic Imaging Report ---
CHEST X-RAY: AP view INDICATION: pain COMPARISON: None FINDINGS: There is a small left pleural effusion. Increased left basal lung markings are noted. Borderline prominent heart is noted. Degenerative changes of the spine are noted. There is elevation of the right hemidiaphragm with gaseous distended loops of bowel. IMPRESSION: Small left effusion. Atelectasis versus infiltrate of the left base cannot be excluded.
--- NOTE | 2019-06-01 12:57 | History and Physical ---
History of Present Illness - HPI Chief Complaint: 69 y/o male patient was brought into ER due to Agitation and refusing to take medications. HPI: 69 y/o male patient was admitted to [facility] due to Agitation and refusing to take medications. Patient has history of Hypertension. Patient had an ER assessment and a complete workup was done. Patient had a chest x-ray which showed small left effusion. Patient was diagnosed with Psychosis, Dehydration and Hypertension. Patient will have a Psych evaluation. I will follow, treat and monitor patient. Patient will continue current treatment plan as ordered. Vital Signs: Last Vital Signs Temp 98 F 06/01/19 06:46 Pulse 61 06/01/19 06:46 Resp 19 06/01/19 06:46 BP 141/75 06/01/19 06:46 Pulse Ox 96 06/01/19 06:46 Past Medical History Cardiovascular: Report: HTN Pulmonary: Report: No Pertinent Hx S[employer]: Report: No Pertinent Hx GI: Report: No Pertinent Hx Psych: Report: Psychosis Musculoskeletal: Report: No Pertinent Hx Rheumatologic: Report: No pertinent Hx Infectious Disease: Report: No Pertinent Hx Renal/: Report: No Pertinent Hx Endocrine: Report: No Pertinent Hx Dermatology: Report: No Pertinent Hx - Past Surgical History Past Surgical History: No pertinent Hx Family Medical History - Family Member Mother History Unknown: Yes Social History Smoke: No Alcohol: None Drugs: None Lives: [place] Domestic Violence: Negative Health Maintenance Health Maintenance: Other (Please see chart.) - Medications Home Medications: Home Medication Medication Instructions Recorded Type Lisinopril [Zestril*] 10 mg PO DAILY tab 12/15/18 Rx OLANZapine [ZyPREXA] 10 mg PO BID tab 12/15/18 Rx Other Medications: Please see medication reconciliation sheet. - Allergies Allergies/Adverse Reactions: Allergies Allergy/AdvReac Type Severity Reaction Status Date / Time No Known Allergies Allergy Verified 12/05/18 18:58 Review of Systems - Review of Systems Review of Systems: Patient has been very agitated, needs monitoring. Constitutional: Report: No Significant Eyes: Report: No Significant ENT: Report: No Significant Respiratory: Report: No Significant Cardiovascular: Report: No Significant Gastrointestinal: Report: No Significant Genitourinary: Report: No Significant Musculoskeletal: Report: No Significant Skin: Report: No Significant Neurological: Report: Other (Agitated.) Physical Exam - Physical Exam HEENT: Report: Ears Nose Throat within normal limits Neck: Report: Within normal limits Cardiovascular Systems: Report: +s1/s2 noted Respiratory: Report: Breath Sounds are within normal limits Abdomen: Report: Non-tender to palpation Back: Report: Inspection of back is within normal limits. Extremities: Report: Non-tender to palpation. Skin: Report: Color of skin is within normal limits Neuro/Psych: Report: Mood affect is within normal limits - Lab Results All Lab Results last 24 hours: Laboratory Results - last 24 hr 05/31/19 05/31/19 05/31/19 19:55 19:55 19:55 WBC 7.7 RBC 5.02 Hgb 14.9 Hct 44.2 MCV 87.9 MCH 29.6 MCHC Differential 33.7 RDW 13.4 Plt Count 234 MPV 7.3 Neutrophils % 75.2 Lymphocytes % 18.1 L Monocytes % 4.2 Eosinophils % 2.4 Basophils % 0.1 PT 9.5 INR 0.91 PTT (Actin FS) 28.6 Sodium 139 Potassium 3.7 Chloride 106 Carbon Dioxide 25.2 Anion Gap 11.5 BUN 28 H Creatinine 1.9 H Est GFR ( Amer) 45.3 Est GFR (Non-Af Amer) 37.4 BUN/Creatinine Ratio 14.7 Glucose 149 H Calcium 9.4 Total Bilirubin 0.7 AST 11 L ALT 12 Alkaline Phosphatase 42 Troponin I B-Natriuretic Peptide Total Protein 6.8 Albumin 4.2 Globulin 2.6 Albumin/Globulin Ratio 1.6 TSH Urine Source Urine Color Urine Clarity Urine pH Ur Specific [place] Urine Protein Urine Glucose (UA) Urine Ketones Urine Blood Urine Nitrate Urine Bilirubin Urine Urobilinogen Ur Leukocyte Esterase Urine RBC Urine WBC Ur Epithelial Cells Urine Bacteria Urine Mucus 05/31/19 05/31/19 05/31/19 19:55 19:55 19:55 WBC RBC Hgb Hct MCV MCH MCHC Differential RDW Plt Count MPV Neutrophils % Lymphocytes % Monocytes % Eosinophils % Basophils % PT INR PTT (Actin FS) Sodium Potassium Chloride Carbon Dioxide Anion Gap BUN Creatinine Est GFR ( Amer) Est GFR (Non-Af Amer) BUN/Creatinine Ratio Glucose Calcium Total Bilirubin AST ALT Alkaline Phosphatase Troponin I 0.01 B-Natriuretic Peptide 10.1 Total Protein Albumin Globulin Albumin/Globulin Ratio TSH 1.55 Urine Source Urine Color Urine Clarity Urine pH Ur Specific [place] Urine Protein Urine Glucose (UA) Urine Ketones Urine Blood Urine Nitrate Urine Bilirubin Urine Urobilinogen Ur Leukocyte Esterase Urine RBC Urine WBC Ur Epithelial Cells Urine Bacteria Urine Mucus 05/31/19 20:36 WBC RBC Hgb Hct MCV MCH MCHC Differential RDW Plt Count MPV Neutrophils % Lymphocytes % Monocytes % Eosinophils % Basophils % PT INR PTT (Actin FS) Sodium Potassium Chloride Carbon Dioxide Anion Gap BUN Creatinine Est GFR ( Amer) Est GFR (Non-Af Amer) BUN/Creatinine Ratio Glucose Calcium Total Bilirubin AST ALT Alkaline Phosphatase Troponin I B-Natriuretic Peptide Total Protein Albumin Globulin Albumin/Globulin Ratio TSH Urine Source MIDSTREAM Urine Color YELLOW Urine Clarity CLEAR Urine pH 6.0 Ur Specific [place] <= 1.005 Urine Protein NEGATIVE Urine Glucose (UA) NEGATIVE Urine Ketones NEGATIVE Urine Blood TRACE Urine Nitrate NEGATIVE Urine Bilirubin NEGATIVE Urine Urobilinogen 0.2 Ur Leukocyte Esterase NEGATIVE Urine RBC 2-5 H Urine WBC 0-2 Ur Epithelial Cells OCCASIONAL Urine Bacteria FEW Urine Mucus FEW - Assessment Assessment: Psychosis. Dehydration. Hypertension. - Plan Plan: Continuation of care. Monitor Labs. Monitor Vitals, Continue present Blood pressure med as directed. Continue present meds as directed. Monitor Diet/Nutritional support. Psych evaluation. Safety precaution. Supportive care. Fall precaution, frequent nursing rounds, and as needed restraints to prevent fall. Continue collaborating with consulting specialists, case management and nursing team. Will Monitor patient and continue current treatment plan as ordered.
--- NOTE | 2019-06-01 22:45 | Psychiatric Evaluation ---
DATE OF SERVICE: PSYCHIATRIC INITIAL EVALUATION AND MENTAL STATUS EXAMINATION AGE: 69 SEX: Male. PHYSICIAN: Dr. Georges CHIEF COMPLAINT: Agitation and refusing treatment and hallucinations. HISTORY OF PRESENT ILLNESS: The patient is a 69-year-old male with history of psychosis and what seems to be bipolar disorder. The patient was admitted to the hospital from [facility]. The patient was extremely agitated there and he was actively hallucinating with yelling and screaming and striking out behavior. The patient also was not able to follow any of staff directions and he was uncooperative with his treatment. He was angry and irritable. The patient also was having a lot of anxiety, also was paranoid about staff and about others. PAST PSYCHIATRIC HISTORY: The patient has history of schizophrenia according to the patient's records. PAST MEDICAL HISTORY: The patient has a history of hypertension. SOCIAL HISTORY: The patient lives in [facility]. No known alcohol or street drug use. ALLERGIES: No known allergies. MENTAL STATUS EXAMINATION: The patient appears older than his stated age. Anxious. Irritable mood. Flat affect. Thought processes are circumstantial with flight of ideas. The patient is actively hallucinating, but denied auditory or visual hallucinations. He denies suicidal or homicidal ideations. The patient is alert and oriented to the situation, but not to the place or date. Impaired immediate and recent memory, but intact remote memories. Poor insight and poor judgment ASSESSMENT: PRIMARY DIAGNOSIS: Schizophrenic disorder. SECONDARY DIAGNOSIS: Rule out dementia, moderate, with psychotic features and behavioral disturbances. MEDICAL DIAGNOSIS: Hypertension. TREATMENT PLAN: We will continue to monitor the patient's behavior and condition closely. We will continue Zyprexa 10 mg twice a day and will adjust the dose. We will work on behavioral modification. ESTIMATED LENGTH OF STAY: 5-7 days PATIENT STRENGTHS AND WEAKNESSES: The patient seems to be in relatively fair health. Weakness is his poor judgment and poor impulse control and noncompliance with treatment recommendations. AFTERDISCHARGE PLAN: Outpatient treatment and followup will continue as an outpatient. CRITERIA FOR DISCHARGE: The patient will not be as agitated or psychotic and will stabilize on psychotropic medications and will establish outpatient treatment plans. [facility]# [id number]
--- NOTE | 2019-06-02 10:43 | Internal Medicine Prog Note ---
Internal Medicine Subjective - Subjective Service Date: 06/02/19 Patient seen and examined:: with staff Patient is:: awake Per staff patient has:: tolerating meds Internal Medicine Objective - Results Result Diagrams: 05/31/19 19:55 05/31/19 19:55 Recent Labs: Laboratory Last Values WBC 7.7 Th/cmm (4.8-10.8) 05/31/19 19:55 RBC 5.02 Mil/cmm (3.80-5.80) 05/31/19 19:55 Hgb 14.9 gm/dL (12-16) 05/31/19 19:55 Hct 44.2 % (41.0-60) 05/31/19 19:55 MCV 87.9 fl (80-99) 05/31/19 19:55 MCH 29.6 pg (27.0-31.0) 05/31/19 19:55 MCHC Differential 33.7 pg (28.0-36.0) 05/31/19 19:55 RDW 13.4 % (11.5-20.0) 05/31/19 19:55 Plt Count 234 Th/cmm (150-400) 05/31/19 19:55 MPV 7.3 fl 05/31/19 19:55 Neutrophils % 75.2 % (40.0-80.0) 05/31/19 19:55 Lymphocytes % 18.1 % (20.0-50.0) L 05/31/19 19:55 Monocytes % 4.2 % (2.0-10.0) 05/31/19 19:55 Eosinophils % 2.4 % (0.0-5.0) 05/31/19 19:55 Basophils % 0.1 % (0.0-2.0) 05/31/19 19:55 PT 9.5 SECONDS (9.5-11.5) 05/31/19 19:55 INR 0.91 (0.5-1.4) 05/31/19 19:55 PTT (Actin FS) 28.6 SECONDS (26.0-38.0) 05/31/19 19:55 Sodium 139 mEq/L (136-145) 05/31/19 19:55 Potassium 3.7 mEq/L (3.5-5.1) 05/31/19 19:55 Chloride 106 mEq/L (98-107) 05/31/19 19:55 Carbon Dioxide 25.2 mEq/L (21.0-31.0) 05/31/19 19:55 Anion Gap 11.5 (7.0-16.0) 05/31/19 19:55 BUN 28 mg/dL (7-25) H 05/31/19 19:55 Creatinine 1.9 mg/dL (0.7-1.3) H 05/31/19 19:55 Est GFR ( Amer) 45.3 ml/min (>90) 05/31/19 19:55 Est GFR (Non-Af Amer) 37.4 ml/min 05/31/19 19:55 BUN/Creatinine Ratio 14.7 05/31/19 19:55 Glucose 149 mg/dL (70-105) H 05/31/19 19:55 POC Glucose 158 MG/DL (70 - 105) H 06/01/19 16:01 Calcium 9.4 mg/dL (8.6-10.3) 05/31/19 19:55 Total Bilirubin 0.7 mg/dL (0.3-1.0) 05/31/19 19:55 AST 11 U/L (13-39) L 05/31/19 19:55 ALT 12 U/L (7-52) 05/31/19 19:55 Alkaline Phosphatase 42 U/L (34-104) 05/31/19 19:55 Troponin I 0.01 ng/mL (0.01-0.05) 05/31/19 19:55 B-Natriuretic Peptide 10.1 pg/mL (5.0-100.0) 05/31/19 19:55 Total Protein 6.8 gm/dL (6.0-8.3) 05/31/19 19:55 Albumin 4.2 gm/dL (4.2-5.5) 05/31/19 19:55 Globulin 2.6 gm/dL 05/31/19 19:55 Albumin/Globulin Ratio 1.6 (1.0-1.8) 05/31/19 19:55 TSH 1.55 uIU/ml (0.34-5.60) 05/31/19 19:55 Urine Source MIDSTREAM 05/31/19 20:36 Urine Color YELLOW 05/31/19 20:36 Urine Clarity CLEAR (CLEAR) 05/31/19 20:36 Urine pH 6.0 (4.6 - 8.0) 05/31/19 20:36 Ur Specific [place] <= 1.005 (1.005-1.030) 05/31/19 20:36 Urine Protein NEGATIVE mg/dL (NEGATIVE) 05/31/19 20:36 Urine Glucose (UA) NEGATIVE mg/dL (NEGATIVE) 05/31/19 20:36 Urine Ketones NEGATIVE mg/dL (NEGATIVE) 05/31/19 20:36 Urine Blood TRACE (NEGATIVE) 05/31/19 20:36 Urine Nitrate NEGATIVE (NEGATIVE) 05/31/19 20:36 Urine Bilirubin NEGATIVE (NEGATIVE) 05/31/19 20:36 Urine Urobilinogen 0.2 E.U./dL (0.2 - 1.0) 05/31/19 20:36 Ur Leukocyte Esterase NEGATIVE (NEGATIVE) 05/31/19 20:36 Urine RBC 2-5 /hpf (0-5) H 05/31/19 20:36 Urine WBC 0-2 /hpf (0-5) 05/31/19 20:36 Ur Epithelial Cells OCCASIONAL /lpf (FEW) 05/31/19 20:36 Urine Bacteria FEW /hpf (NONE SEEN) 05/31/19 20:36 Urine Mucus FEW /lpf (FEW) 05/31/19 20:36 - Physical Exam Vitals and I&O: Vital Signs Temp 97.9 F 06/01/19 14:00 Pulse 70 06/01/19 14:00 Resp 20 06/01/19 20:00 BP 136/70 06/01/19 14:00 Pulse Ox 96 06/01/19 14:00 Intake & Output 06/01/19 06/02/19 06/02/19 18:59 06:59 18:59 Intake Total 1500 Balance 1500 Intake: Oral 1500 Other: # Voids 3 # Bowel Movements 0 Stool Characteristics Soft Active Medications: Current Medications Acetaminophen (Tylenol) 650 mg PO Q4HR PRN PRN Reason: Mild Pain / Temp above 100 Stop: 07/30/19 21:33 Al Hydrox/Mg Hydrox/Simethicone (Maalox) 30 ml PO Q4H PRN PRN Reason: GI DISTRESS Stop: 07/30/19 21:33 Lorazepam (Ativan) 0.5 mg PO Q4H PRN; Protocol PRN Reason: Anxiety Stop: 07/30/19 21:33 Last Admin: 06/01/19 16:32 Dose: 0.5 mg Magnesium Hydroxide (Milk Of Magnesia) 30 ml PO HS PRN PRN Reason: Constipation Olanzapine (Zyprexa) 10 mg PO BID GAURAV; Protocol Stop: 07/31/19 08:59 Last Admin: 06/02/19 08:28 Dose: 10 mg Zolpidem Tartrate (Ambien) 5 mg PO HS PRN PRN Reason: Insomnia Stop: 07/30/19 21:33 Last Admin: 06/01/19 21:01 Dose: 5 mg General: alert HEENT: NC/AT, PERRLA Neck: Supple Lungs: CTAB Abdomen: soft, non-tender, non-distended Extremities: excoriation Internal Medicine Assmt/Plan - Assessment Assessment: Psychosis. Dehydration. Hypertension. - Plan Plan: Continuation of care. Monitor Labs. Monitor Vitals, Continue present Blood pressure med as directed. Continue present meds as directed. Monitor Diet/Nutritional support. Psych evaluation. Safety precaution. Supportive care. Fall precaution, frequent nursing rounds, and as needed restraints to prevent fall. Continue collaborating with consulting specialists, case management and nursing team. Will Monitor patient and continue current treatment plan as ordered.
--- NOTE | 2019-06-02 22:57 | Progress Notes ---
DATE: 06/02/2019 SUBJECTIVE: Chart was reviewed and the patient interviewed. Also discussed the patient's condition with the staff and reviewed records and labs. The patient is able to follow directions easily, but his anxiety is still high. The patient also seems to show improvement in his behavior and decreased striking out behavior. The patient is still responding to stimuli and still mumbles and talking to himself. He also still needs lots of redirections. Otherwise, the patient is compliant with taking medications with no side effects of medications. ASSESSMENT: The patient is still psychotic and agitated, but seems to be less. TREATMENT PLAN: Continue monitoring his behavior closely and working on behavioral modification. Also, continue Zyprexa 10 mg twice a day and continue to follow up closely. [facility]# [id number]
--- NOTE | 2019-06-03 12:00 | Internal Medicine Prog Note ---
Internal Medicine Subjective - Subjective Service Date: 06/03/19 Patient seen and examined:: with staff Patient is:: awake, verbal, other (continues to mumble and talk to himself.) Patient Complaints of:: other (Veru anxious.) Per staff patient has:: no adverse event, no episodes of fall, tolerating meds Internal Medicine Objective - Results Result Diagrams: 05/31/19 19:55 05/31/19 19:55 Recent Labs: Laboratory Last Values WBC 7.7 Th/cmm (4.8-10.8) 05/31/19 19:55 RBC 5.02 Mil/cmm (3.80-5.80) 05/31/19 19:55 Hgb 14.9 gm/dL (12-16) 05/31/19 19:55 Hct 44.2 % (41.0-60) 05/31/19 19:55 MCV 87.9 fl (80-99) 05/31/19 19:55 MCH 29.6 pg (27.0-31.0) 05/31/19 19:55 MCHC Differential 33.7 pg (28.0-36.0) 05/31/19 19:55 RDW 13.4 % (11.5-20.0) 05/31/19 19:55 Plt Count 234 Th/cmm (150-400) 05/31/19 19:55 MPV 7.3 fl 05/31/19 19:55 Neutrophils % 75.2 % (40.0-80.0) 05/31/19 19:55 Lymphocytes % 18.1 % (20.0-50.0) L 05/31/19 19:55 Monocytes % 4.2 % (2.0-10.0) 05/31/19 19:55 Eosinophils % 2.4 % (0.0-5.0) 05/31/19 19:55 Basophils % 0.1 % (0.0-2.0) 05/31/19 19:55 PT 9.5 SECONDS (9.5-11.5) 05/31/19 19:55 INR 0.91 (0.5-1.4) 05/31/19 19:55 PTT (Actin FS) 28.6 SECONDS (26.0-38.0) 05/31/19 19:55 Sodium 139 mEq/L (136-145) 05/31/19 19:55 Potassium 3.7 mEq/L (3.5-5.1) 05/31/19 19:55 Chloride 106 mEq/L (98-107) 05/31/19 19:55 Carbon Dioxide 25.2 mEq/L (21.0-31.0) 05/31/19 19:55 Anion Gap 11.5 (7.0-16.0) 05/31/19 19:55 BUN 28 mg/dL (7-25) H 05/31/19 19:55 Creatinine 1.9 mg/dL (0.7-1.3) H 05/31/19 19:55 Est GFR ( Amer) 45.3 ml/min (>90) 05/31/19 19:55 Est GFR (Non-Af Amer) 37.4 ml/min 05/31/19 19:55 BUN/Creatinine Ratio 14.7 05/31/19 19:55 Glucose 149 mg/dL (70-105) H 05/31/19 19:55 POC Glucose 158 MG/DL (70 - 105) H 06/01/19 16:01 Calcium 9.4 mg/dL (8.6-10.3) 05/31/19 19:55 Total Bilirubin 0.7 mg/dL (0.3-1.0) 05/31/19 19:55 AST 11 U/L (13-39) L 05/31/19 19:55 ALT 12 U/L (7-52) 05/31/19 19:55 Alkaline Phosphatase 42 U/L (34-104) 05/31/19 19:55 Troponin I 0.01 ng/mL (0.01-0.05) 05/31/19 19:55 B-Natriuretic Peptide 10.1 pg/mL (5.0-100.0) 05/31/19 19:55 Total Protein 6.8 gm/dL (6.0-8.3) 05/31/19 19:55 Albumin 4.2 gm/dL (4.2-5.5) 05/31/19 19:55 Globulin 2.6 gm/dL 05/31/19 19:55 Albumin/Globulin Ratio 1.6 (1.0-1.8) 05/31/19 19:55 TSH 1.55 uIU/ml (0.34-5.60) 05/31/19 19:55 Urine Source MIDSTREAM 05/31/19 20:36 Urine Color YELLOW 05/31/19 20:36 Urine Clarity CLEAR (CLEAR) 05/31/19 20:36 Urine pH 6.0 (4.6 - 8.0) 05/31/19 20:36 Ur Specific [employer] <= 1.005 (1.005-1.030) 05/31/19 20:36 Urine Protein NEGATIVE mg/dL (NEGATIVE) 05/31/19 20:36 Urine Glucose (UA) NEGATIVE mg/dL (NEGATIVE) 05/31/19 20:36 Urine Ketones NEGATIVE mg/dL (NEGATIVE) 05/31/19 20:36 Urine Blood TRACE (NEGATIVE) 05/31/19 20:36 Urine Nitrate NEGATIVE (NEGATIVE) 05/31/19 20:36 Urine Bilirubin NEGATIVE (NEGATIVE) 05/31/19 20:36 Urine Urobilinogen 0.2 E.U./dL (0.2 - 1.0) 05/31/19 20:36 Ur Leukocyte Esterase NEGATIVE (NEGATIVE) 05/31/19 20:36 Urine RBC 2-5 /hpf (0-5) H 05/31/19 20:36 Urine WBC 0-2 /hpf (0-5) 05/31/19 20:36 Ur Epithelial Cells OCCASIONAL /lpf (FEW) 05/31/19 20:36 Urine Bacteria FEW /hpf (NONE SEEN) 05/31/19 20:36 Urine Mucus FEW /lpf (FEW) 05/31/19 20:36 - Physical Exam Vitals and I&O: Vital Signs Temp 97.4 F 06/03/19 06:55 Pulse 80 06/03/19 06:55 Resp 21 06/03/19 06:55 BP 126/72 06/03/19 06:55 Pulse Ox 96 06/02/19 20:00 Intake & Output 06/02/19 06/03/19 06/03/19 18:59 06:59 18:59 Intake Total 1350 Balance 1350 Intake: Oral 1350 Other: Stool Characteristics Soft Soft Active Medications: Current Medications Acetaminophen (Tylenol) 650 mg PO Q4HR PRN PRN Reason: Mild Pain / Temp above 100 Stop: 07/30/19 21:33 Al Hydrox/Mg Hydrox/Simethicone (Maalox) 30 ml PO Q4H PRN PRN Reason: GI DISTRESS Stop: 07/30/19 21:33 Lorazepam (Ativan) 0.5 mg PO Q4H PRN; Protocol PRN Reason: Anxiety Stop: 07/30/19 21:33 Last Admin: 06/01/19 16:32 Dose: 0.5 mg Magnesium Hydroxide (Milk Of Magnesia) 30 ml PO HS PRN PRN Reason: Constipation Olanzapine (Zyprexa) 10 mg PO BID GAURAV; Protocol Stop: 07/31/19 08:59 Last Admin: 06/03/19 08:47 Dose: 10 mg Zolpidem Tartrate (Ambien) 5 mg PO HS PRN PRN Reason: Insomnia Stop: 07/30/19 21:33 Last Admin: 06/01/19 21:01 Dose: 5 mg Physical Exam: Patiient continues to talk to himself, mumbling, less agitated. General: alert, demented HEENT: NC/AT, PERRLA Neck: Supple Lungs: CTAB Abdomen: soft, non-tender, non-distended Extremities: excoriation Neurological: no change Internal Medicine Assmt/Plan - Assessment Assessment: Anxiety. Psychosis. Dehydration. Hypertension. - Plan Plan: Continuation of care. Monitor Labs. Monitor Vitals, Continue present Blood pressure med as directed. Continue present meds as directed. Monitor Diet/Nutritional support. Psych evaluation. Safety precaution. Supportive care. Fall precaution, frequent nursing rounds, and as needed restraints to prevent fall. Continue collaborating with consulting specialists, case management and nursing team. Will Monitor patient and continue present care management. Nutritional Asmnt/Malnutr-PDOC - Dietary Evaluation Malnutrition Findings (Please click <Entered> for more info): Nutritional Asmnt/Malnutrition Start: 06/03/19 11: 18 Text: Status: Complete Freq: Protocol: Document 06/03/19 11:19 ANEESH (Rec: 06/03/19 11:21 ANEESH [email or web address]) Nutritional Asmnt/Malnutrition Patient General Information Nutritional Screening Moderate Risk Diagnosis Psychosis Pertinent Medical Hx/Surgical Hx HTN Subjective Information Pt is a 69-year-old male from residential admitted on 05/31 c /o agitation and refusing medication. Pt PO intake 100% since admission per Meal/ Nutrition Activity Record. HT: 58 WT: 140 LB (63.63 kg) BMI: 21.28 (Normal) GI: WNL, Flat BM: Not noted I/O: 1350/Not noted Skin: WNL, Intact Howard: 20 Diet Order: CCHO 60 gm, NERI Estimated Energy Needs: ( Geriatric, CBW) 2859-9514 kcals (25-30 kcals/ kg) 63-76 g Pro (1.0-1.2 g/kg) 4106-9921 ml (25-30 ml/kg) Pt is eating 100% of meals Per Meal/Nutrition Activity Record. Dietary is currently providing an estimated 1869 kcals and 98 gm Pro to meet 100% kcal and 100+% Pro needs. Current Diet Order/ Nutrition Support CCHO 60 gm, NERI Pertinent Medications Maalox (PRN), MOM (PRN) Pertinent Labs 06/01: POC Glucose 158 05/31: BUN/Cr 28/1.9, Glucose 149 Nutritional Hx/Data Height 1.73 m Height (Calculated Centimeters) 172.7 Current Weight (lbs) 63.503 kg Weight (Calculated Kilograms) 63.5 Weight (Calculated Grams) 41162.9 [place] Body Weight 68.4 kg % [place] Body Weight 93 Body Mass Index (BMI) 21.2 Weight Status Approriate GI Symptoms GI Symptoms None Last BM Not noted Skin Integrity/Comment: WNL, Intact Howard: 20 Current %PO Good (75-100%) Estimated Nutritional Goals BEE in Kcals: Using Current wt Calories/Kcals/Kg 25-30 Kcals Calculated 3804-4611 Protein: Using Current wt Protein g/k.0-1.2 Protein Calculated 63-76 Fluid: ml 6263-0025 ml (25-30 ml/kg) Nutritional Problem 1. Problem Problem Altered Nutrition related labs Etiology r/t endocrine dysfunction Signs/Symptoms: aeb Glucose 149 (05/31) and POC Glucose 158 (06/01) Malnutrition Related to Morbid Obesity Malnutrition related to morbid obesity No Intervention/Recommendation Comments 1.Continue with CCHO 60 gm, NERI diet as ordered. Expected Outcomes/Goals Expected Outcomes/Goals 1.PO intake to continue to meet 75% of nutritional needs. 2.Monitor PO intake, wt, and skin integrity, and nutrition related labs to trend WNL 3.F/U as low risk in 7 days,
--- NOTE | 2019-06-04 08:48 | Progress Notes ---
DATE: 06/03/2019 SUBJECTIVE: Chart was reviewed and the patient interviewed. Also discussed the patient's condition with the staff and reviewed records and labs. The patient remains in irritable and angry mood, but seems to be slightly calmer than the day before and less agitated. The patient also at times, smiles appropriately. He still seems to be preoccupied and paranoid and is still resisting care. He also is still isolative and still withdrawn and interacting minimally with others. ASSESSMENT: The patient is still agitated and confused. TREATMENT PLAN: Continue to monitor behavior and condition closely. Also, continue to work on his irritability and his mood swings. Also, continue adjusting psychotropic medications and follow up closely. [facility]# [id number]
[2019-06-04] MEDS: Promethazine DM 6.25/15mg-5mL 5 ML SYR PO PRN ×2 (13:52→21:27)
--- NOTE | 2019-06-04 16:13 | General Progress Note ---
Objective - Results Result Diagrams: 05/31/19 19:55 05/31/19 19:55 Recent Labs: Laboratory Last Values WBC 7.7 Th/cmm (4.8-10.8) 05/31/19 19:55 RBC 5.02 Mil/cmm (3.80-5.80) 05/31/19 19:55 Hgb 14.9 gm/dL (12-16) 05/31/19 19:55 Hct 44.2 % (41.0-60) 05/31/19 19:55 MCV 87.9 fl (80-99) 05/31/19 19:55 MCH 29.6 pg (27.0-31.0) 05/31/19 19:55 MCHC Differential 33.7 pg (28.0-36.0) 05/31/19 19:55 RDW 13.4 % (11.5-20.0) 05/31/19 19:55 Plt Count 234 Th/cmm (150-400) 05/31/19 19:55 MPV 7.3 fl 05/31/19 19:55 Neutrophils % 75.2 % (40.0-80.0) 05/31/19 19:55 Lymphocytes % 18.1 % (20.0-50.0) L 05/31/19 19:55 Monocytes % 4.2 % (2.0-10.0) 05/31/19 19:55 Eosinophils % 2.4 % (0.0-5.0) 05/31/19 19:55 Basophils % 0.1 % (0.0-2.0) 05/31/19 19:55 PT 9.5 SECONDS (9.5-11.5) 05/31/19 19:55 INR 0.91 (0.5-1.4) 05/31/19 19:55 PTT (Actin FS) 28.6 SECONDS (26.0-38.0) 05/31/19 19:55 Sodium 139 mEq/L (136-145) 05/31/19 19:55 Potassium 3.7 mEq/L (3.5-5.1) 05/31/19 19:55 Chloride 106 mEq/L (98-107) 05/31/19 19:55 Carbon Dioxide 25.2 mEq/L (21.0-31.0) 05/31/19 19:55 Anion Gap 11.5 (7.0-16.0) 05/31/19 19:55 BUN 28 mg/dL (7-25) H 05/31/19 19:55 Creatinine 1.9 mg/dL (0.7-1.3) H 05/31/19 19:55 Est GFR ( Amer) 45.3 ml/min (>90) 05/31/19 19:55 Est GFR (Non-Af Amer) 37.4 ml/min 05/31/19 19:55 BUN/Creatinine Ratio 14.7 05/31/19 19:55 Glucose 149 mg/dL (70-105) H 05/31/19 19:55 POC Glucose 158 MG/DL (70 - 105) H 06/01/19 16:01 Calcium 9.4 mg/dL (8.6-10.3) 05/31/19 19:55 Total Bilirubin 0.7 mg/dL (0.3-1.0) 05/31/19 19:55 AST 11 U/L (13-39) L 05/31/19 19:55 ALT 12 U/L (7-52) 05/31/19 19:55 Alkaline Phosphatase 42 U/L (34-104) 05/31/19 19:55 Troponin I 0.01 ng/mL (0.01-0.05) 05/31/19 19:55 B-Natriuretic Peptide 10.1 pg/mL (5.0-100.0) 05/31/19 19:55 Total Protein 6.8 gm/dL (6.0-8.3) 05/31/19 19:55 Albumin 4.2 gm/dL (4.2-5.5) 05/31/19 19:55 Globulin 2.6 gm/dL 05/31/19 19:55 Albumin/Globulin Ratio 1.6 (1.0-1.8) 05/31/19 19:55 TSH 1.55 uIU/ml (0.34-5.60) 05/31/19 19:55 Urine Source MIDSTREAM 05/31/19 20:36 Urine Color YELLOW 05/31/19 20:36 Urine Clarity CLEAR (CLEAR) 05/31/19 20:36 Urine pH 6.0 (4.6 - 8.0) 05/31/19 20:36 Ur Specific [place] <= 1.005 (1.005-1.030) 05/31/19 20:36 Urine Protein NEGATIVE mg/dL (NEGATIVE) 05/31/19 20:36 Urine Glucose (UA) NEGATIVE mg/dL (NEGATIVE) 05/31/19 20:36 Urine Ketones NEGATIVE mg/dL (NEGATIVE) 05/31/19 20:36 Urine Blood TRACE (NEGATIVE) 05/31/19 20:36 Urine Nitrate NEGATIVE (NEGATIVE) 05/31/19 20:36 Urine Bilirubin NEGATIVE (NEGATIVE) 05/31/19 20:36 Urine Urobilinogen 0.2 E.U./dL (0.2 - 1.0) 05/31/19 20:36 Ur Leukocyte Esterase NEGATIVE (NEGATIVE) 05/31/19 20:36 Urine RBC 2-5 /hpf (0-5) H 05/31/19 20:36 Urine WBC 0-2 /hpf (0-5) 05/31/19 20:36 Ur Epithelial Cells OCCASIONAL /lpf (FEW) 05/31/19 20:36 Urine Bacteria FEW /hpf (NONE SEEN) 05/31/19 20:36 Urine Mucus FEW /lpf (FEW) 05/31/19 20:36 - Physical Exam Vitals and I&O: Vital Signs Temp 97.6 F 06/04/19 14:00 Pulse 85 06/04/19 14:00 Resp 20 06/04/19 14:00 BP 132/77 06/04/19 14:00 Pulse Ox 99 06/04/19 14:00 Intake & Output 06/03/19 06/04/19 06/04/19 18:59 06:59 18:59 Intake Total 1400 300 Balance 1400 300 Intake: Oral 1400 300 Other: # Voids 2 # Bowel Movements 1 Stool Characteristics Soft Active Medications: Current Medications Acetaminophen (Tylenol) 650 mg PO Q4HR PRN PRN Reason: Mild Pain / Temp above 100 Stop: 07/30/19 21:33 Al Hydrox/Mg Hydrox/Simethicone (Maalox) 30 ml PO Q4H PRN PRN Reason: GI DISTRESS Stop: 07/30/19 21:33 Lorazepam (Ativan) 0.5 mg PO Q4H PRN; Protocol PRN Reason: Anxiety Stop: 07/30/19 21:33 Last Admin: 06/01/19 16:32 Dose: 0.5 mg Magnesium Hydroxide (Milk Of Magnesia) 30 ml PO HS PRN PRN Reason: Constipation Olanzapine (Zyprexa) 10 mg PO BID GAURAV; Protocol Stop: 07/31/19 08:59 Last Admin: 06/04/19 08:55 Dose: 10 mg Promethazine HCl/Dextromethorphan (Phenergan Dm 6.25/15mg-5 Ml) 10 ml PO TID PRN PRN Reason: Cough Stop: 08/03/19 06:01 Last Admin: 06/04/19 13:52 Dose: 10 ml Zolpidem Tartrate (Ambien) 5 mg PO HS PRN PRN Reason: Insomnia Stop: 07/30/19 21:33 Last Admin: 06/01/19 21:01 Dose: 5 mg Physical Exam: Patiient continues to talk to himself, mumbling, less agitated. Assessment/Plan - Assessment Assessment: Anxiety. Psychosis. Dehydration. Hypertension. - Plan Plan: Continuation of care. Monitor Labs. Monitor Vitals, Continue present Blood pressure med as directed. Continue present meds as directed. Monitor Diet/Nutritional support. Psych evaluation. Safety precaution. Supportive care. Fall precaution, frequent nursing rounds, and as needed restraints to prevent fall. Continue collaborating with consulting specialists, case management and nursing team. Will Monitor patient and continue present care management. Nutritional Asmnt/Malnutr-PDOC - Dietary Evaluation Malnutrition Findings (Please click <Entered> for more info): Nutritional Asmnt/Malnutrition Start: 06/03/19 11: 18 Text: Status: Complete Freq: Protocol: Document 06/03/19 11:19 ANEESH (Rec: 06/03/19 11:21 ANEESH [email or web address]) Nutritional Asmnt/Malnutrition Patient General Information Nutritional Screening Moderate Risk Diagnosis Psychosis Pertinent Medical Hx/Surgical Hx HTN Subjective Information Pt is a 69-year-old male from [facility] admitted on 05/31 c /o agitation and refusing medication. Pt PO intake 100% since admission per Meal/ Nutrition Activity Record. HT: 58 WT: 140 LB (63.63 kg) BMI: 21.28 (Normal) GI: WNL, Flat BM: Not noted I/O: 1350/Not noted Skin: WNL, Intact Howard: 20 Diet Order: CCHO 60 gm, NERI Estimated Energy Needs: ( Geriatric, CBW) 3395-3722 kcals (25-30 kcals/ kg) 63-76 g Pro (1.0-1.2 g/kg) 6484-4854 ml (25-30 ml/kg) Pt is eating 100% of meals Per Meal/Nutrition Activity Record. Dietary is currently providing an estimated 1869 kcals and 98 gm Pro to meet 100% kcal and 100+% Pro needs. Current Diet Order/ Nutrition Support CCHO 60 gm, NERI Pertinent Medications Maalox (PRN), MOM (PRN) Pertinent Labs 06/01: POC Glucose 158 05/31: BUN/Cr 28/1.9, Glucose 149 Nutritional Hx/Data Height 1.73 m Height (Calculated Centimeters) 172.7 Current Weight (lbs) 63.503 kg Weight (Calculated Kilograms) 63.5 Weight (Calculated Grams) 76659.9 [place] Body Weight 68.4 kg % [place] Body Weight 93 Body Mass Index (BMI) 21.2 Weight Status Approriate GI Symptoms GI Symptoms None Last BM Not noted Skin Integrity/Comment: WNL, Intact Howard: 20 Current %PO Good (75-100%) Estimated Nutritional Goals BEE in Kcals: Using Current wt Calories/Kcals/Kg 25-30 Kcals Calculated 3654-8903 Protein: Using Current wt Protein g/k.0-1.2 Protein Calculated 63-76 Fluid: ml 1911-8509 ml (25-30 ml/kg) Nutritional Problem 1. Problem Problem Altered Nutrition related labs Etiology r/t endocrine dysfunction Signs/Symptoms: aeb Glucose 149 (05/31) and POC Glucose 158 (06/01) Malnutrition Related to Morbid Obesity Malnutrition related to morbid obesity No Intervention/Recommendation Comments 1.Continue with CCHO 60 gm, NERI diet as ordered. Expected Outcomes/Goals Expected Outcomes/Goals 1.PO intake to continue to meet 75% of nutritional needs. 2.Monitor PO intake, wt, and skin integrity, and nutrition related labs to trend WNL 3.F/U as low risk in 7 days,
--- NOTE | 2019-06-04 19:25 | Internal Medicine Prog Note ---
Internal Medicine Subjective - Subjective Service Date: 06/04/19 Patient seen and examined:: with staff Patient is:: awake, verbal, other (continues to mumble and talk to himself.) Patient Complaints of:: other (still anxious.) Per staff patient has:: no adverse event, no episodes of fall, tolerating meds Internal Medicine Objective - Results Result Diagrams: 05/31/19 19:55 05/31/19 19:55 Recent Labs: Laboratory Last Values WBC 7.7 Th/cmm (4.8-10.8) 05/31/19 19:55 RBC 5.02 Mil/cmm (3.80-5.80) 05/31/19 19:55 Hgb 14.9 gm/dL (12-16) 05/31/19 19:55 Hct 44.2 % (41.0-60) 05/31/19 19:55 MCV 87.9 fl (80-99) 05/31/19 19:55 MCH 29.6 pg (27.0-31.0) 05/31/19 19: MCHC Differential 33.7 pg (28.0-36.0) 05/31/19 19:55 RDW 13.4 % (11.5-20.0) 05/31/19 19: Plt Count 234 Th/cmm (150-400) 05/31/19 19:55 MPV 7.3 fl 05/31/19 19:55 Neutrophils % 75.2 % (40.0-80.0) 05/31/19 19:55 Lymphocytes % 18.1 % (20.0-50.0) L 05/31/19 19: Monocytes % 4.2 % (2.0-10.0) 05/31/19 19:55 Eosinophils % 2.4 % (0.0-5.0) 05/31/19 19: Basophils % 0.1 % (0.0-2.0) 05/31/19 19:55 PT 9.5 SECONDS (9.5-11.5) 05/31/19 19:55 INR 0.91 (0.5-1.4) 05/31/19 19:55 PTT (Actin FS) 28.6 SECONDS (26.0-38.0) 05/31/19 19:55 Sodium 139 mEq/L (136-145) 05/31/19 19:55 Potassium 3.7 mEq/L (3.5-5.1) 05/31/19 19:55 Chloride 106 mEq/L (98-107) 05/31/19 19:55 Carbon Dioxide 25.2 mEq/L (21.0-31.0) 05/31/19 19:55 Anion Gap 11.5 (7.0-16.0) 05/31/19 19:55 BUN 28 mg/dL (7-25) H 05/31/19 19:55 Creatinine 1.9 mg/dL (0.7-1.3) H 05/31/19 19:55 Est GFR ( Amer) 45.3 ml/min (>90) 05/31/19 19:55 Est GFR (Non-Af Amer) 37.4 ml/min 05/31/19 19:55 BUN/Creatinine Ratio 14.7 05/31/19 19:55 Glucose 149 mg/dL (70-105) H 05/31/19 19:55 POC Glucose 158 MG/DL (70 - 105) H 06/01/19 16:01 Calcium 9.4 mg/dL (8.6-10.3) 05/31/19 19:55 Total Bilirubin 0.7 mg/dL (0.3-1.0) 05/31/19 19:55 AST 11 U/L (13-39) L 05/31/19 19:55 ALT 12 U/L (7-52) 05/31/19 19:55 Alkaline Phosphatase 42 U/L (34-104) 05/31/19 19:55 Troponin I 0.01 ng/mL (0.01-0.05) 05/31/19 19:55 B-Natriuretic Peptide 10.1 pg/mL (5.0-100.0) 05/31/19 19:55 Total Protein 6.8 gm/dL (6.0-8.3) 05/31/19 19:55 Albumin 4.2 gm/dL (4.2-5.5) 05/31/19 19:55 Globulin 2.6 gm/dL 05/31/19 19:55 Albumin/Globulin Ratio 1.6 (1.0-1.8) 05/31/19 19:55 TSH 1.55 uIU/ml (0.34-5.60) 05/31/19 19:55 Urine Source MIDSTREAM 05/31/19 20:36 Urine Color YELLOW 05/31/19 20:36 Urine Clarity CLEAR (CLEAR) 05/31/19 20:36 Urine pH 6.0 (4.6 - 8.0) 05/31/19 20:36 Ur Specific [place] <= 1.005 (1.005-1.030) 05/31/19 20:36 Urine Protein NEGATIVE mg/dL (NEGATIVE) 05/31/19 20:36 Urine Glucose (UA) NEGATIVE mg/dL (NEGATIVE) 05/31/19 20:36 Urine Ketones NEGATIVE mg/dL (NEGATIVE) 05/31/19 20:36 Urine Blood TRACE (NEGATIVE) 05/31/19 20:36 Urine Nitrate NEGATIVE (NEGATIVE) 05/31/19 20:36 Urine Bilirubin NEGATIVE (NEGATIVE) 05/31/19 20:36 Urine Urobilinogen 0.2 E.U./dL (0.2 - 1.0) 05/31/19 20:36 Ur Leukocyte Esterase NEGATIVE (NEGATIVE) 05/31/19 20:36 Urine RBC 2-5 /hpf (0-5) H 05/31/19 20:36 Urine WBC 0-2 /hpf (0-5) 05/31/19 20:36 Ur Epithelial Cells OCCASIONAL /lpf (FEW) 05/31/19 20:36 Urine Bacteria FEW /hpf (NONE SEEN) 05/31/19 20:36 Urine Mucus FEW /lpf (FEW) 05/31/19 20:36 - Physical Exam Vitals and I&O: Vital Signs Temp 97.6 F 06/04/19 14:00 Pulse 85 06/04/19 14:00 Resp 20 06/04/19 14:00 BP 132/77 06/04/19 14:00 Pulse Ox 99 06/04/19 14:00 Intake & Output 06/04/19 06/04/19 06/05/19 06:59 18:59 06:59 Intake Total 300 1600 Balance 300 1600 Intake: Oral 300 1600 Other: # Voids 2 4 # Bowel Movements 0 Active Medications: Current Medications Acetaminophen (Tylenol) 650 mg PO Q4HR PRN PRN Reason: Mild Pain / Temp above 100 Stop: 07/30/19 21:33 Al Hydrox/Mg Hydrox/Simethicone (Maalox) 30 ml PO Q4H PRN PRN Reason: GI DISTRESS Stop: 07/30/19 21:33 Lorazepam (Ativan) 0.5 mg PO Q4H PRN; Protocol PRN Reason: Anxiety Stop: 07/30/19 21:33 Last Admin: 06/01/19 16:32 Dose: 0.5 mg Magnesium Hydroxide (Milk Of Magnesia) 30 ml PO HS PRN PRN Reason: Constipation Olanzapine (Zyprexa) 10 mg PO BID GAURAV; Protocol Stop: 07/31/19 08:59 Last Admin: 06/04/19 08:55 Dose: 10 mg Promethazine HCl/Dextromethorphan (Phenergan Dm 6.25/15mg-5 Ml) 10 ml PO TID PRN PRN Reason: Cough Stop: 08/03/19 06:01 Last Admin: 06/04/19 13:52 Dose: 10 ml Zolpidem Tartrate (Ambien) 5 mg PO HS PRN PRN Reason: Insomnia Stop: 07/30/19 21:33 Last Admin: 06/01/19 21:01 Dose: 5 mg Physical Exam: Patient continues to talk to himself, mumbling, not as agitated as when admitted. General: alert, demented HEENT: NC/AT, PERRLA Neck: Supple Lungs: CTAB Abdomen: soft, non-tender, non-distended Extremities: excoriation Neurological: no change Internal Medicine Assmt/Plan - Assessment Assessment: Anxiety. Psychosis. Dehydration. Hypertension. - Plan Plan: Continuation of care. Monitor Labs. Monitor Vitals, Continue present Blood pressure med as directed. Continue present meds as directed. Monitor Diet/Nutritional support. Psych evaluation. Safety precaution. Supportive care. Fall precaution, frequent nursing rounds, and as needed restraints to prevent fall. Continue collaborating with consulting specialists, case management and nursing team. Will Monitor patient and continue present care management. Nutritional Asmnt/Malnutr-PDOC - Dietary Evaluation Malnutrition Findings (Please click <Entered> for more info): Nutritional Asmnt/Malnutrition Start: 06/03/19 11: 18 Text: Status: Complete Freq: Protocol: Document 06/03/19 11:19 ANEESH (Rec: 06/03/19 11:21 ANEESH [id number]) Nutritional Asmnt/Malnutrition Patient General Information Nutritional Screening Moderate Risk Diagnosis Psychosis Pertinent Medical Hx/Surgical Hx HTN Subjective Information Pt is a 69-[facility]-old [facility] 05/[facility] c /o agitation and refusing medication. Pt PO intake 100% since admission per Meal/ Nutrition Activity Record. HT: 58 WT: 140 LB (63.63 kg) BMI: 21.28 (Normal) GI: WNL, Flat BM: Not noted I/O: 1350/Not noted Skin: WNL, Intact Howard: 20 Diet Order: CCHO 60 gm, NERI Estimated Energy Needs: ( Geriatric, CBW) 7160-3278 kcals (25-30 kcals/ kg) 63-76 g Pro (1.0-1.2 g/kg) 2207-8973 ml (25-30 ml/kg) Pt is eating 100% of meals Per Meal/Nutrition Activity Record. Dietary is currently providing an estimated 1869 kcals and 98 gm Pro to meet 100% kcal and 100+% Pro needs. Current Diet Order/ Nutrition Support CCHO 60 gm, NERI Pertinent Medications Maalox (PRN), MOM (PRN) Pertinent Labs 06/01: POC Glucose 158 05/31: BUN/Cr 28/1.9, Glucose 149 Nutritional Hx/Data Height 1.73 m Height (Calculated Centimeters) 172.7 Current Weight (lbs) 63.503 kg Weight (Calculated Kilograms) 63.5 Weight (Calculated Grams) 60645.9 [place] Body Weight 68.4 kg % [place] Body Weight 93 Body Mass Index (BMI) 21.2 Weight Status Approriate GI Symptoms GI Symptoms None Last BM Not noted Skin Integrity/Comment: WNL, Intact Howard: 20 Current %PO Good (75-100%) Estimated Nutritional Goals BEE in Kcals: Using Current wt Calories/Kcals/Kg 25-30 Kcals Calculated 1038-0032 Protein: Using Current wt Protein g/k.0-1.2 Protein Calculated 63-76 Fluid: ml 5123-0685 ml (25-30 ml/kg) Nutritional Problem 1. Problem Problem Altered Nutrition related labs Etiology r/t endocrine dysfunction Signs/Symptoms: aeb Glucose 149 (05/31) and POC Glucose 158 (06/01) Malnutrition Related to Morbid Obesity Malnutrition related to morbid obesity No Intervention/Recommendation Comments 1.Continue with CCHO 60 gm, NERI diet as ordered. Expected Outcomes/Goals Expected Outcomes/Goals 1.PO intake to continue to meet 75% of nutritional needs. 2.Monitor PO intake, wt, and skin integrity, and nutrition related labs to trend WNL 3.F/U as low risk in 7 days,
--- NOTE | 2019-06-04 22:31 | Progress Notes ---
DATE: SUBJECTIVE: Chart was reviewed and the patient interviewed. Also, discussed the patient's condition with the staff and reviewed records and labs. The patient is still withdrawn and interacting minimally with others. The patient also is having episodes of agitation, irritability, and is still feeling hopeless and helpless. The patient also is denying any intention to harm himself or others. ASSESSMENT: The patient is still having episodes of agitation and irritability. TREATMENT PLAN: We will continue Zyprexa 10 mg twice a day. Also, continue to work on his impulse control and continue to followup. JOB# [id number]
--- NOTE | 2019-06-05 08:44 | Progress Notes ---
DATE: 06/05/2019 SUBJECTIVE: Chart was reviewed and the patient interviewed. Also discussed the patient's condition with the staff and reviewed records and labs. The patient is still anxious and is still easily agitated and easily irritable. The patient also still needs directions and easier to redirect him. The patient also is still having mood swings. At the same time, the patient is compliant with taking medications with no side effects of medications. ASSESSMENT: The patient is still psychotic and agitated and needs close monitoring. TREATMENT PLAN: Continue to monitor behavior and condition closely and continue adjusting psychotropic medications and work on behavioral modification. JOB# [id number]
--- NOTE | 2019-06-05 14:14 | Internal Medicine Prog Note ---
Internal Medicine Subjective - Subjective Service Date: 06/05/19 Patient seen and examined:: with staff Patient is:: awake, verbal, other (very aggressive.) Patient Complaints of:: other (still anxious.) Per staff patient has:: no adverse event, no episodes of fall, tolerating meds Internal Medicine Objective - Results Result Diagrams: 05/31/19 19:55 05/31/19 19:55 Recent Labs: Laboratory Last Values WBC 7.7 Th/cmm (4.8-10.8) 05/31/19 19:55 RBC 5.02 Mil/cmm (3.80-5.80) 05/31/19 19:55 Hgb 14.9 gm/dL (12-16) 05/31/19 19:55 Hct 44.2 % (41.0-60) 05/31/19 19:55 MCV 87.9 fl (80-99) 05/31/19 19:55 MCH 29.6 pg (27.0-31.0) 05/31/19 19:55 MCHC Differential 33.7 pg (28.0-36.0) 05/31/19 19:55 RDW 13.4 % (11.5-20.0) 05/31/19 19:55 Plt Count 234 Th/cmm (150-400) 05/31/19 19:55 MPV 7.3 fl 05/31/19 19:55 Neutrophils % 75.2 % (40.0-80.0) 05/31/19 19:55 Lymphocytes % 18.1 % (20.0-50.0) L 05/31/19: Monocytes % 4.2 % (2.0-10.0) 05/31/19 19:55 Eosinophils % 2.4 % (0.0-5.0) 05/31/19 19:55 Basophils % 0.1 % (0.0-2.0) 05/31/19 19:55 PT 9.5 SECONDS (9.5-11.5) 05/31/19 19:55 INR 0.91 (0.5-1.4) 05/31/19 19:55 PTT (Actin FS) 28.6 SECONDS (26.0-38.0) 05/31/19 19:55 Sodium 139 mEq/L (136-145) 05/31/19 19:55 Potassium 3.7 mEq/L (3.5-5.1) 05/31/19 19:55 Chloride 106 mEq/L (98-107) 05/31/19 19:55 Carbon Dioxide 25.2 mEq/L (21.0-31.0) 05/31/19 19:55 Anion Gap 11.5 (7.0-16.0) 05/31/19 19:55 BUN 28 mg/dL (7-25) H 05/31/19 19:55 Creatinine 1.9 mg/dL (0.7-1.3) H 05/31/19 19:55 Est GFR ( Amer) 45.3 ml/min (>90) 05/31/19 19:55 Est GFR (Non-Af Amer) 37.4 ml/min 05/31/19 19:55 BUN/Creatinine Ratio 14.7 05/31/19 19:55 Glucose 149 mg/dL (70-105) H 05/31/19 19:55 POC Glucose 158 MG/DL (70 - 105) H 06/01/19 16:01 Calcium 9.4 mg/dL (8.6-10.3) 05/31/19 19:55 Total Bilirubin 0.7 mg/dL (0.3-1.0) 05/31/19 19:55 AST 11 U/L (13-39) L 05/31/19 19:55 ALT 12 U/L (7-52) 05/31/19 19:55 Alkaline Phosphatase 42 U/L (34-104) 05/31/19 19:55 Troponin I 0.01 ng/mL (0.01-0.05) 05/31/19 19:55 B-Natriuretic Peptide 10.1 pg/mL (5.0-100.0) 05/31/19 19:55 Total Protein 6.8 gm/dL (6.0-8.3) 05/31/19 19:55 Albumin 4.2 gm/dL (4.2-5.5) 05/31/19 19:55 Globulin 2.6 gm/dL 05/31/19 19:55 Albumin/Globulin Ratio 1.6 (1.0-1.8) 05/31/19 19:55 TSH 1.55 uIU/ml (0.34-5.60) 05/31/19 19:55 Urine Source MIDSTREAM 05/31/19 20:36 Urine Color YELLOW 05/31/19 20:36 Urine Clarity CLEAR (CLEAR) 05/31/19 20:36 Urine pH 6.0 (4.6 - 8.0) 05/31/19 20:36 Ur Specific [place] <= 1.005 (1.005-1.030) 05/31/19 20:36 Urine Protein NEGATIVE mg/dL (NEGATIVE) 05/31/19 20:36 Urine Glucose (UA) NEGATIVE mg/dL (NEGATIVE) 05/31/19 20:36 Urine Ketones NEGATIVE mg/dL (NEGATIVE) 05/31/19 20:36 Urine Blood TRACE (NEGATIVE) 05/31/19 20:36 Urine Nitrate NEGATIVE (NEGATIVE) 05/31/19 20:36 Urine Bilirubin NEGATIVE (NEGATIVE) 05/31/19 20:36 Urine Urobilinogen 0.2 E.U./dL (0.2 - 1.0) 05/31/19 20:36 Ur Leukocyte Esterase NEGATIVE (NEGATIVE) 05/31/19 20:36 Urine RBC 2-5 /hpf (0-5) H 05/31/19 20:36 Urine WBC 0-2 /hpf (0-5) 05/31/19 20:36 Ur Epithelial Cells OCCASIONAL /lpf (FEW) 05/31/19 20:36 Urine Bacteria FEW /hpf (NONE SEEN) 05/31/19 20:36 Urine Mucus FEW /lpf (FEW) 05/31/19 20:36 - Physical Exam Vitals and I&O: Vital Signs Temp 98 F 06/05/19 13:56 Pulse 64 06/05/19 13:56 Resp 20 06/05/19 13:56 BP 112/71 06/05/19 13:56 Pulse Ox 99 06/05/19 13:56 Intake & Output 06/04/19 06/05/19 06/05/19 18:59 06:59 18:59 Intake Total 1600 480 Balance 1600 480 Intake: Oral 1600 480 Other: # Voids 4 2 # Bowel Movements 0 Active Medications: Current Medications Acetaminophen (Tylenol) 650 mg PO Q4HR PRN PRN Reason: Mild Pain / Temp above 100 Stop: 07/30/19 21:33 Al Hydrox/Mg Hydrox/Simethicone (Maalox) 30 ml PO Q4H PRN PRN Reason: GI DISTRESS Stop: 07/30/19 21:33 Lorazepam (Ativan) 0.5 mg PO Q4H PRN; Protocol PRN Reason: Anxiety Stop: 07/30/19 21:33 Last Admin: 06/01/19 16:32 Dose: 0.5 mg Magnesium Hydroxide (Milk Of Magnesia) 30 ml PO HS PRN PRN Reason: Constipation Olanzapine (Zyprexa) 10 mg PO BID [facility]; Protocol Stop: 07/31/19 08:59 Last Admin: 06/05/19 08:25 Dose: 10 mg Promethazine HCl/Dextromethorphan (Phenergan Dm 6.25/15mg-5 Ml) 10 ml PO TID PRN PRN Reason: Cough Stop: 08/03/19 06:01 Last Admin: 06/04/19 21:27 Dose: 10 ml Zolpidem Tartrate (Ambien) 5 mg PO HS PRN PRN Reason: Insomnia Stop: 07/30/19 21:33 Last Admin: 06/01/19 21:01 Dose: 5 mg Physical Exam: Patient remains very Psychotic and agitated. General: alert, demented HEENT: NC/AT, PERRLA Neck: Supple Lungs: CTAB Abdomen: soft, non-tender, non-distended Extremities: excoriation Neurological: no change Internal Medicine Assmt/Plan - Assessment Assessment: Psychosis. Anxiety. Dehydration. Htn. - Plan Plan: Continuation of care. Monitor Labs. Continue present meds as directed. Monitor vitals, Continue BP meds as directed. Monitor Diet/Nutritional support. Psych management per psych. Pain Management. Physical therapyn prn. Occupational therapy prn. Fall precaution, frequent nursing rounds, and as needed restraints to prevent fall. Safety precaution. Supportive care. Continue collaborating with consulting specialists, case management and nursing team. Will Monitor patient and continue present care management. Nutritional Asmnt/Malnutr-PDOC - Dietary Evaluation Malnutrition Findings (Please click <Entered> for more info): Nutritional Asmnt/Malnutrition Start: 06/03/19 11: 18 Text: Status: Complete Freq: Protocol: Document 06/03/19 11:19 ANEESH (Rec: 06/03/19 11:21 ANEESH [email or web address]) Nutritional Asmnt/Malnutrition Patient General Information Nutritional Screening Moderate Risk Diagnosis Psychosis Pertinent Medical Hx/Surgical Hx HTN Subjective Information Pt is a 69-year-old male from care home admitted on 05/31 c /o agitation and refusing medication. Pt PO intake 100% since admission per Meal/ Nutrition Activity Record. HT: 58 WT: 140 LB (63.63 kg) BMI: 21.28 (Normal) GI: WNL, Flat BM: Not noted I/O: 1350/Not noted Skin: WNL, Intact Howard: 20 Diet Order: CCHO 60 gm, NERI Estimated Energy Needs: ( Geriatric, CBW) 6976-7836 kcals (25-30 kcals/ kg) 63-76 g Pro (1.0-1.2 g/kg) 8388-9604 ml (25-30 ml/kg) Pt is eating 100% of meals Per Meal/Nutrition Activity Record. Dietary is currently providing an estimated 1869 kcals and 98 gm Pro to meet 100% kcal and 100+% Pro needs. Current Diet Order/ Nutrition Support CCHO 60 gm, NERI Pertinent Medications Maalox (PRN), MOM (PRN) Pertinent Labs 06/01: POC Glucose 158 05/31: BUN/Cr 28/1.9, Glucose 149 Nutritional Hx/Data Height 1.73 m Height (Calculated Centimeters) 172.7 Current Weight (lbs) 63.503 kg Weight (Calculated Kilograms) 63.5 Weight (Calculated Grams) 76319.9 [place] Body Weight 68.4 kg % [place] Body Weight 93 Body Mass Index (BMI) 21.2 Weight Status Approriate GI Symptoms GI Symptoms None Last BM Not noted Skin Integrity/Comment: WNL, Intact Howard: 20 Current %PO Good (75-100%) Estimated Nutritional Goals BEE in Kcals: Using Current wt Calories/Kcals/Kg 25-30 Kcals Calculated 3620-4778 Protein: Using Current wt Protein g/k.0-1.2 Protein Calculated 63-76 Fluid: ml 9538-5481 ml (25-30 ml/kg) Nutritional Problem 1. Problem Problem Altered Nutrition related labs Etiology r/t endocrine dysfunction Signs/Symptoms: aeb Glucose 149 (05/31) and POC Glucose 158 (06/01) Malnutrition Related to Morbid Obesity Malnutrition related to morbid obesity No Intervention/Recommendation Comments 1.Continue with CCHO 60 gm, NERI diet as ordered. Expected Outcomes/Goals Expected Outcomes/Goals 1.PO intake to continue to meet 75% of nutritional needs. 2.Monitor PO intake, wt, and skin integrity, and nutrition related labs to trend WNL 3.F/U as low risk in 7 days,
[2019-06-05] MEDS ORDERED: GLUCAGON HCl 1 MG KIT IM PRN (18:26)
[2019-06-05] MEDS ORDERED: Dextrose 50% 50 mL Abboject IVP PRN (18:26)
[2019-06-05] MEDS: INSULIN LISPRO SLIDING SCALE 100 UNITS/ML UNIT SUBQ SCH (21:16)
[2019-06-06] MEDS: INSULIN LISPRO SLIDING SCALE 100 UNITS/ML UNIT SUBQ SCH ×4 (06:45→21:00)
--- NOTE | 2019-06-06 11:17 | Internal Medicine Prog Note ---
Internal Medicine Subjective - Subjective Service Date: 06/06/19 Patient seen and examined:: with staff Patient is:: awake, verbal, other (very aggressive.) Patient Complaints of:: other (still anxious.) Per staff patient has:: no adverse event, no episodes of fall, tolerating meds Internal Medicine Objective - Results Result Diagrams: 05/31/19 19:55 05/31/19 19:55 Recent Labs: Laboratory Last Values WBC 7.7 Th/cmm (4.8-10.8) 05/31/19 19:55 RBC 5.02 Mil/cmm (3.80-5.80) 05/31/19 19:55 Hgb 14.9 gm/dL (12-16) 05/31/19 19:55 Hct 44.2 % (41.0-60) 05/31/19 19:55 MCV 87.9 fl (80-99) 05/31/19 19:55 MCH 29.6 pg (27.0-31.0) 05/31/19 19:55 MCHC Differential 33.7 pg (28.0-36.0) 05/31/19 19:55 RDW 13.4 % (11.5-20.0) 05/31/19 19:55 Plt Count 234 Th/cmm (150-400) 05/31/19 19:55 MPV 7.3 fl 05/31/19 19:55 Neutrophils % 75.2 % (40.0-80.0) 05/31/19 19:55 Lymphocytes % 18.1 % (20.0-50.0) L 05/31/19: Monocytes % 4.2 % (2.0-10.0) 05/31/19 19:55 Eosinophils % 2.4 % (0.0-5.0) 05/31/19 19:55 Basophils % 0.1 % (0.0-2.0) 05/31/19 19:55 PT 9.5 SECONDS (9.5-11.5) 05/31/19 19:55 INR 0.91 (0.5-1.4) 05/31/19 19:55 PTT (Actin FS) 28.6 SECONDS (26.0-38.0) 05/31/19 19:55 Sodium 139 mEq/L (136-145) 05/31/19 19:55 Potassium 3.7 mEq/L (3.5-5.1) 05/31/19 19:55 Chloride 106 mEq/L (98-107) 05/31/19 19:55 Carbon Dioxide 25.2 mEq/L (21.0-31.0) 05/31/19 19:55 Anion Gap 11.5 (7.0-16.0) 05/31/19 19:55 BUN 28 mg/dL (7-25) H 05/31/19 19:55 Creatinine 1.9 mg/dL (0.7-1.3) H 05/31/19 19:55 Est GFR ( Amer) 45.3 ml/min (>90) 05/31/19 19:55 Est GFR (Non-Af Amer) 37.4 ml/min 05/31/19 19:55 BUN/Creatinine Ratio 14.7 05/31/19 19:55 Glucose 149 mg/dL (70-105) H 05/31/19 19:55 POC Glucose 177 MG/DL (70 - 105) H 06/06/19 06:05 Calcium 9.4 mg/dL (8.6-10.3) 05/31/19 19:55 Total Bilirubin 0.7 mg/dL (0.3-1.0) 05/31/19 19:55 AST 11 U/L (13-39) L 05/31/19 19:55 ALT 12 U/L (7-52) 05/31/19 19:55 Alkaline Phosphatase 42 U/L (34-104) 05/31/19 19:55 Troponin I 0.01 ng/mL (0.01-0.05) 05/31/19 19:55 B-Natriuretic Peptide 10.1 pg/mL (5.0-100.0) 05/31/19 19:55 Total Protein 6.8 gm/dL (6.0-8.3) 05/31/19 19:55 Albumin 4.2 gm/dL (4.2-5.5) 05/31/19 19:55 Globulin 2.6 gm/dL 05/31/19 19:55 Albumin/Globulin Ratio 1.6 (1.0-1.8) 05/31/19 19:55 TSH 1.55 uIU/ml (0.34-5.60) 05/31/19 19:55 Urine Source MIDSTREAM 05/31/19 20:36 Urine Color YELLOW 05/31/19 20:36 Urine Clarity CLEAR (CLEAR) 05/31/19 20:36 Urine pH 6.0 (4.6 - 8.0) 05/31/19 20:36 Ur Specific [place] <= 1.005 (1.005-1.030) 05/31/19 20:36 Urine Protein NEGATIVE mg/dL (NEGATIVE) 05/31/19 20:36 Urine Glucose (UA) NEGATIVE mg/dL (NEGATIVE) 05/31/19 20:36 Urine Ketones NEGATIVE mg/dL (NEGATIVE) 05/31/19 20:36 Urine Blood TRACE (NEGATIVE) 05/31/19 20:36 Urine Nitrate NEGATIVE (NEGATIVE) 05/31/19 20:36 Urine Bilirubin NEGATIVE (NEGATIVE) 05/31/19 20:36 Urine Urobilinogen 0.2 E.U./dL (0.2 - 1.0) 05/31/19 20:36 Ur Leukocyte Esterase NEGATIVE (NEGATIVE) 05/31/19 20:36 Urine RBC 2-5 /hpf (0-5) H 05/31/19 20:36 Urine WBC 0-2 /hpf (0-5) 05/31/19 20:36 Ur Epithelial Cells OCCASIONAL /lpf (FEW) 05/31/19 20:36 Urine Bacteria FEW /hpf (NONE SEEN) 05/31/19 20:36 Urine Mucus FEW /lpf (FEW) 05/31/19 20:36 - Physical Exam Vitals and I&O: Vital Signs Temp 97.9 F 06/06/19 04:51 Pulse 70 06/06/19 04:51 Resp 19 06/06/19 04:51 BP 130/86 06/06/19 04:51 Pulse Ox 95 06/06/19 04:51 Intake & Output 06/05/19 06/06/19 06/06/19 18:59 06:59 18:59 Intake Total 480 Balance 480 Intake: Oral 480 Other: # Voids 2 Active Medications: Current Medications Acetaminophen (Tylenol) 650 mg PO Q4HR PRN PRN Reason: Mild Pain / Temp above 100 Stop: 07/30/19 21:33 Al Hydrox/Mg Hydrox/Simethicone (Maalox) 30 ml PO Q4H PRN PRN Reason: GI DISTRESS Stop: 07/30/19 21:33 Dextrose (D50w) 50 ml IVP PRN PRN PRN Reason: Blood Glucose less than 70 Stop: 08/04/19 18:25 Dextrose (Glutose 40%) 18.75 gm PO PRN PRN PRN Reason: Blood Glucose less than 70 Stop: 08/04/19 18:25 Glucagon (Glucagen) 1 mg IM PRN PRN PRN Reason: Blood Glucose less than 70 Stop: 08/04/19 18:25 Insulin Human Lispro (Humalog Insulin Sliding Scale) 0 units SUBQ [facility]; Protocol Stop: 08/04/19 20:59 Last Admin: 06/06/19 06:45 Dose: 2 units Lorazepam (Ativan) 0.5 mg PO Q4H PRN; Protocol PRN Reason: Anxiety Stop: 07/30/19 21:33 Last Admin: 06/01/19 16:32 Dose: 0.5 mg Magnesium Hydroxide (Milk Of Magnesia) 30 ml PO HS PRN PRN Reason: Constipation Olanzapine (Zyprexa) 10 mg PO BID [facility]; Protocol Stop: 07/31/19 08:59 Last Admin: 06/06/19 08:37 Dose: 10 mg Promethazine HCl/Dextromethorphan (Phenergan Dm 6.25/15mg-5 Ml) 10 ml PO TID PRN PRN Reason: Cough Stop: 08/03/19 06:01 Last Admin: 06/04/19 21:27 Dose: 10 ml Zolpidem Tartrate (Ambien) 5 mg PO HS PRN PRN Reason: Insomnia Stop: 07/30/19 21:33 Last Admin: 06/01/19 21:01 Dose: 5 mg Physical Exam: Patient is Psychotic and remains very agitated. General: alert, demented HEENT: NC/AT, PERRLA Neck: Supple Lungs: CTAB Abdomen: soft, non-tender, non-distended Extremities: excoriation Neurological: no change Internal Medicine Assmt/Plan - Assessment Assessment: Psychosis. Anxiety. Dehydration. Htn. - Plan Plan: Continuation of care. Monitor Labs. Continue present meds as directed. Monitor vitals, Continue BP meds as directed. Monitor Diet/Nutritional support. Psych management per psych. Pain Management. Physical therapyn prn. Occupational therapy prn. Fall precaution, frequent nursing rounds, and as needed restraints to prevent fall. Safety precaution. Supportive care. Continue collaborating with consulting specialists, case management and nursing team. Will Monitor patient and continue present care management. Nutritional Asmnt/Malnutr-PDOC - Dietary Evaluation Malnutrition Findings (Please click <Entered> for more info): Nutritional Asmnt/Malnutrition Start: 06/03/19 11: 18 Text: Status: Complete Freq: Protocol: Document 06/03/19 11:19 ANEESH (Rec: 06/03/19 11:21 ANEESH [email or web address]) Nutritional Asmnt/Malnutrition Patient General Information Nutritional Screening Moderate Risk Diagnosis Psychosis Pertinent Medical Hx/Surgical Hx HTN Subjective Information Pt is a 69-year-old male from halfway admitted on 05/31 c /o agitation and refusing medication. Pt PO intake 100% since admission per Meal/ Nutrition Activity Record. HT: 58 WT: 140 LB (63.63 kg) BMI: 21.28 (Normal) GI: WNL, Flat BM: Not noted I/O: 1350/Not noted Skin: WNL, Intact [place]: 20 Diet Order: CCHO 60 gm, NERI Estimated Energy Needs: ( Geriatric, CBW) 5420-4588 kcals (25-30 kcals/ kg) 63-76 g Pro (1.0-1.2 g/kg) 7469-0080 ml (25-30 ml/kg) Pt is eating 100% of meals Per Meal/Nutrition Activity Record. Dietary is currently providing an estimated 1869 kcals and 98 gm Pro to meet 100% kcal and 100+% Pro needs. Current Diet Order/ Nutrition Support CCHO 60 gm, NERI Pertinent Medications Maalox (PRN), MOM (PRN) Pertinent Labs 06/01: POC Glucose 158 05/31: BUN/Cr 28/1.9, Glucose 149 Nutritional Hx/Data Height 1.73 m Height (Calculated Centimeters) 172.7 Current Weight (lbs) 63.503 kg Weight (Calculated Kilograms) 63.5 Weight (Calculated Grams) 87125.9 [place] Body Weight 68.4 kg % [place] Body Weight 93 Body Mass Index (BMI) 21.2 Weight Status Approriate GI Symptoms GI Symptoms None Last BM Not noted Skin Integrity/Comment: WNL, Intact [place]: 20 Current %PO Good (75-100%) Estimated Nutritional Goals BEE in Kcals: Using Current wt Calories/Kcals/Kg 25-30 Kcals Calculated 4760-7466 Protein: Using Current wt Protein g/k.0-1.2 Protein Calculated 63-76 Fluid: ml 0441-6192 ml (25-30 ml/kg) Nutritional Problem 1. Problem Problem Altered Nutrition related labs Etiology r/t endocrine dysfunction Signs/Symptoms: aeb Glucose 149 (05/31) and POC Glucose 158 (06/01) Malnutrition Related to Morbid Obesity Malnutrition related to morbid obesity No Intervention/Recommendation Comments 1.Continue with CCHO 60 gm, NERI diet as ordered. Expected Outcomes/Goals Expected Outcomes/Goals 1.PO intake to continue to meet 75% of nutritional needs. 2.Monitor PO intake, wt, and skin integrity, and nutrition related labs to trend WNL 3.F/U as low risk in 7 days,
--- NOTE | 2019-06-06 18:44 | Progress Notes ---
DATE: 06/06/2019 SUBJECTIVE: Chart reviewed and the patient interviewed. Also discussed the patient's condition with the staff and reviewed records and labs. The patient seems to be slightly calmer and seems to be less irritable and less agitated. The patient also is interacting slightly more. The patient also is cooperative and compliant with taking his medications with no side effects of medications. ASSESSMENT: The patient is still irritable and anxious and needs close monitoring. TREATMENT PLAN: Continue to monitor behavior and condition closely. Also, continue adjusting psychotropic medications and follow up with his behavioral modification. [facility]# [id number]
[2019-06-07] MEDS: INSULIN LISPRO SLIDING SCALE 100 UNITS/ML UNIT SUBQ SCH ×4 (06:59→21:35)
--- NOTE | 2019-06-07 16:10 | Internal Medicine Prog Note ---
Internal Medicine Subjective - Subjective Service Date: 06/07/19 Patient seen and examined:: with staff Patient is:: awake, verbal, other (very aggressive.) Patient Complaints of:: other (still anxious.) Per staff patient has:: no adverse event, no episodes of fall, tolerating meds Internal Medicine Objective - Results Result Diagrams: 05/31/19 19:55 05/31/19 19:55 Recent Labs: Laboratory Last Values WBC 7.7 Th/cmm (4.8-10.8) 05/31/19 19:55 RBC 5.02 Mil/cmm (3.80-5.80) 05/31/19 19:55 Hgb 14.9 gm/dL (12-16) 05/31/19 19:55 Hct 44.2 % (41.0-60) 05/31/19 19:55 MCV 87.9 fl (80-99) 05/31/19 19:55 MCH 29.6 pg (27.0-31.0) 05/31/19 19:55 MCHC Differential 33.7 pg (28.0-36.0) 05/31/19 19:55 RDW 13.4 % (11.5-20.0) 05/31/19 19:55 Plt Count 234 Th/cmm (150-400) 05/31/19 19:55 MPV 7.3 fl 05/31/19 19:55 Neutrophils % 75.2 % (40.0-80.0) 05/31/19 19:55 Lymphocytes % 18.1 % (20.0-50.0) L 05/31/19: Monocytes % 4.2 % (2.0-10.0) 05/31/19 19:55 Eosinophils % 2.4 % (0.0-5.0) 05/31/19 19:55 Basophils % 0.1 % (0.0-2.0) 05/31/19 19:55 PT 9.5 SECONDS (9.5-11.5) 05/31/19 19:55 INR 0.91 (0.5-1.4) 05/31/19 19:55 PTT (Actin FS) 28.6 SECONDS (26.0-38.0) 05/31/19 19:55 Sodium 139 mEq/L (136-145) 05/31/19 19:55 Potassium 3.7 mEq/L (3.5-5.1) 05/31/19 19:55 Chloride 106 mEq/L (98-107) 05/31/19 19:55 Carbon Dioxide 25.2 mEq/L (21.0-31.0) 05/31/19 19:55 Anion Gap 11.5 (7.0-16.0) 05/31/19 19:55 BUN 28 mg/dL (7-25) H 05/31/19 19:55 Creatinine 1.9 mg/dL (0.7-1.3) H 05/31/19 19:55 Est GFR ( Amer) 45.3 ml/min (>90) 05/31/19 19:55 Est GFR (Non-Af Amer) 37.4 ml/min 05/31/19 19:55 BUN/Creatinine Ratio 14.7 05/31/19 19:55 Glucose 149 mg/dL (70-105) H 05/31/19 19:55 POC Glucose 198 MG/DL (70 - 105) H 06/07/19 06:53 Calcium 9.4 mg/dL (8.6-10.3) 05/31/19 19:55 Total Bilirubin 0.7 mg/dL (0.3-1.0) 05/31/19 19:55 AST 11 U/L (13-39) L 05/31/19 19:55 ALT 12 U/L (7-52) 05/31/19 19:55 Alkaline Phosphatase 42 U/L (34-104) 05/31/19 19:55 Troponin I 0.01 ng/mL (0.01-0.05) 05/31/19 19:55 B-Natriuretic Peptide 10.1 pg/mL (5.0-100.0) 05/31/19 19:55 Total Protein 6.8 gm/dL (6.0-8.3) 05/31/19 19:55 Albumin 4.2 gm/dL (4.2-5.5) 05/31/19 19:55 Globulin 2.6 gm/dL 05/31/19 19:55 Albumin/Globulin Ratio 1.6 (1.0-1.8) 05/31/19 19:55 TSH 1.55 uIU/ml (0.34-5.60) 05/31/19 19:55 Urine Source MIDSTREAM 05/31/19 20:36 Urine Color YELLOW 05/31/19 20:36 Urine Clarity CLEAR (CLEAR) 05/31/19 20:36 Urine pH 6.0 (4.6 - 8.0) 05/31/19 20:36 Ur Specific [place] <= 1.005 (1.005-1.030) 05/31/19 20:36 Urine Protein NEGATIVE mg/dL (NEGATIVE) 05/31/19 20:36 Urine Glucose (UA) NEGATIVE mg/dL (NEGATIVE) 05/31/19 20:36 Urine Ketones NEGATIVE mg/dL (NEGATIVE) 05/31/19 20:36 Urine Blood TRACE (NEGATIVE) 05/31/19 20:36 Urine Nitrate NEGATIVE (NEGATIVE) 05/31/19 20:36 Urine Bilirubin NEGATIVE (NEGATIVE) 05/31/19 20:36 Urine Urobilinogen 0.2 E.U./dL (0.2 - 1.0) 05/31/19 20:36 Ur Leukocyte Esterase NEGATIVE (NEGATIVE) 05/31/19 20:36 Urine RBC 2-5 /hpf (0-5) H 05/31/19 20:36 Urine WBC 0-2 /hpf (0-5) 05/31/19 20:36 Ur Epithelial Cells OCCASIONAL /lpf (FEW) 05/31/19 20:36 Urine Bacteria FEW /hpf (NONE SEEN) 05/31/19 20:36 Urine Mucus FEW /lpf (FEW) 05/31/19 20:36 - Physical Exam Vitals and I&O: Vital Signs Temp 98.2 F 06/06/19 20:00 Pulse 88 06/06/19 20:00 Resp 20 06/06/19 20:00 BP 153/96 06/06/19 20:00 Pulse Ox 95 06/06/19 20:00 Intake & Output 06/06/19 06/07/19 06/07/19 18:59 06:59 18:59 Intake Total 240 Balance 240 Intake: Oral 240 Other: # Voids 2 Active Medications: Current Medications Acetaminophen (Tylenol) 650 mg PO Q4HR PRN PRN Reason: Mild Pain / Temp above 100 Stop: 07/30/19 21:33 Al Hydrox/Mg Hydrox/Simethicone (Maalox) 30 ml PO Q4H PRN PRN Reason: GI DISTRESS Stop: 07/30/19 21:33 Dextrose (D50w) 50 ml IVP PRN PRN PRN Reason: Blood Glucose less than 70 Stop: 08/04/19 18:25 Dextrose (Glutose 40%) 18.75 gm PO PRN PRN PRN Reason: Blood Glucose less than 70 Stop: 08/04/19 18:25 Glucagon (Glucagen) 1 mg IM PRN PRN PRN Reason: Blood Glucose less than 70 Stop: 08/04/19 18:25 Insulin Human Lispro (Humalog Insulin Sliding Scale) [address] [facility]; Protocol Stop: 08/04/19 20:59 Last Admin: 06/07/19 11:30 Dose: Not Given Lorazepam (Ativan) 0.5 mg PO Q4H PRN; Protocol PRN Reason: Anxiety Stop: 07/30/19 21:33 Last Admin: 06/06/19 21:26 Dose: 0.5 mg Magnesium Hydroxide (Milk Of Magnesia) 30 ml PO HS PRN PRN Reason: Constipation Olanzapine (Zyprexa) 10 mg PO BID [facility]; Protocol Stop: 07/31/19 08:59 Last Admin: 06/07/19 09:21 Dose: 10 mg Promethazine HCl/Dextromethorphan (Phenergan Dm 6.25/15mg-5 Ml) 10 ml PO TID PRN PRN Reason: Cough Stop: 08/03/19 06:01 Last Admin: 06/04/19 21:27 Dose: 10 ml Zolpidem Tartrate (Ambien) 5 mg PO HS PRN PRN Reason: Insomnia Stop: 07/30/19 21:33 Last Admin: 06/06/19 21:26 Dose: 5 mg Physical Exam: Patient is agitated. General: alert, demented HEENT: NC/AT, PERRLA Neck: Supple Lungs: CTAB Abdomen: soft, non-tender, non-distended Extremities: excoriation Neurological: no change Internal Medicine Assmt/Plan - Assessment Assessment: Psychosis. Anxiety. Dehydration. Htn. - Plan Plan: Continuation of care. Monitor Labs. Continue present meds as directed. Monitor vitals, Continue BP meds as directed. Monitor Diet/Nutritional support. Psych management per psych. Pain Management. Physical therapyn prn. Occupational therapy prn. Fall precaution, frequent nursing rounds, and as needed restraints to prevent fall. Safety precaution. Supportive care. Continue collaborating with consulting specialists, case management and nursing team. Will Monitor patient and continue present care management. Nutritional Asmnt/Malnutr-PDOC - Dietary Evaluation Malnutrition Findings (Please click <Entered> for more info): Nutritional Asmnt/Malnutrition Start: 06/03/19 11: 18 Text: Status: Complete Freq: Protocol: Document 06/03/19 11:19 ANEESH (Rec: 06/03/19 11:21 [email or web address] [email or web address]) Nutritional Asmnt/Malnutrition Patient General Information Nutritional Screening Moderate Risk Diagnosis Psychosis Pertinent Medical Hx/Surgical Hx HTN Subjective Information Pt is a 69-year-old male from longterm admitted on 05/31 c /o agitation and refusing medication. Pt PO intake 100% since admission per Meal/ Nutrition Activity Record. HT: 58 WT: 140 LB (63.63 kg) BMI: 21.28 (Normal) GI: WNL, Flat BM: Not noted I/O: 1350/Not noted Skin: WNL, Intact Howard: 20 Diet Order: CCHO 60 gm, NERI Estimated Energy Needs: ( Geriatric, CBW) 0539-2886 kcals (25-30 kcals/ kg) 63-76 g Pro (1.0-1.2 g/kg) 4807-4542 ml (25-30 ml/kg) Pt is eating 100% of meals Per Meal/Nutrition Activity Record. Dietary is currently providing an estimated 1869 kcals and 98 gm Pro to meet 100% kcal and 100+% Pro needs. Current Diet Order/ Nutrition Support CCHO 60 gm, NERI Pertinent Medications Maalox (PRN), MOM (PRN) Pertinent Labs 06/01: POC Glucose 158 05/31: BUN/Cr 28/1.9, Glucose 149 Nutritional Hx/Data Height 1.73 m Height (Calculated Centimeters) 172.7 Current Weight (lbs) 63.503 kg Weight (Calculated Kilograms) 63.5 Weight (Calculated Grams) 82504.9 [place] Body Weight 68.4 kg % [place] Body Weight 93 Body Mass Index (BMI) 21.2 Weight Status Approriate GI Symptoms GI Symptoms None Last BM Not noted Skin Integrity/Comment: WNL, Intact Howard: 20 Current %PO Good (75-100%) Estimated Nutritional Goals BEE in Kcals: Using Current wt Calories/Kcals/Kg 25-30 Kcals Calculated 1340-4991 Protein: Using Current wt Protein g/k.0-1.2 Protein Calculated 63-76 Fluid: ml 8034-5289 ml (25-30 ml/kg) Nutritional Problem 1. Problem Problem Altered Nutrition related labs Etiology r/t endocrine dysfunction Signs/Symptoms: aeb Glucose 149 (05/31) and POC Glucose 158 (06/01) Malnutrition Related to Morbid Obesity Malnutrition related to morbid obesity No Intervention/Recommendation Comments 1.Continue with CCHO 60 gm, NERI diet as ordered. Expected Outcomes/Goals Expected Outcomes/Goals 1.PO intake to continue to meet 75% of nutritional needs. 2.Monitor PO intake, wt, and skin integrity, and nutrition related labs to trend WNL 3.F/U as low risk in 7 days,
--- NOTE | 2019-06-08 00:05 | Progress Notes ---
DATE: 06/07/2019 SUBJECTIVE: A 69-year-old male with history of bipolar disorder, coming in from a board and care, agitated, hallucinating, yelling, screaming, striking out. Per the patient, he came for a medication refill. He seems somewhat confused as to why he is here, very isolative, withdrawn, concerns for ongoing psychotic symptoms, paranoia, is not the best historian as noted. He is generally calm, mostly keeps to self. Still irritable, anxious, concerns that he may strike out, act out upon impulses. Medications are noted. Tolerant of dosing of Zyprexa. We will continue to monitor. [facility]# [id number]
[2019-06-08] MEDS: INSULIN LISPRO SLIDING SCALE 100 UNITS/ML UNIT SUBQ SCH ×4 (06:48→21:41)
--- NOTE | 2019-06-08 15:16 | Internal Medicine Prog Note ---
Internal Medicine Subjective - Subjective Service Date: 06/08/19 Patient is:: awake, verbal, other (very aggressive.) Patient Complaints of:: other (still anxious.) Per staff patient has:: no adverse event, no episodes of fall, tolerating meds Internal Medicine Objective - Results Result Diagrams: 05/31/19 19:55 05/31/19 19:55 Recent Labs: Laboratory Last Values WBC 7.7 Th/cmm (4.8-10.8) 05/31/19 19:55 RBC 5.02 Mil/cmm (3.80-5.80) 05/31/19 19:55 Hgb 14.9 gm/dL (12-16) 05/31/19 19:55 Hct 44.2 % (41.0-60) 05/31/19 19:55 MCV 87.9 fl (80-99) 05/31/19 19:55 MCH 29.6 pg (27.0-31.0) 05/31/19 19:55 MCHC Differential 33.7 pg (28.0-36.0) 05/31/19 19:55 RDW 13.4 % (11.5-20.0) 05/31/19 19:55 Plt Count 234 Th/cmm (150-400) 05/31/19 19:55 MPV 7.3 fl 05/31/19 19:55 Neutrophils % 75.2 % (40.0-80.0) 05/31/19 19:55 Lymphocytes % 18.1 % (20.0-50.0) L 05/31/19 19:55 Monocytes % 4.2 % (2.0-10.0) 05/31/19 19:55 Eosinophils % 2.4 % (0.0-5.0) 05/31/19 19:55 Basophils % 0.1 % (0.0-2.0) 05/31/19 19:55 PT 9.5 SECONDS (9.5-11.5) 05/31/19 19:55 INR 0.91 (0.5-1.4) 05/31/19 19:55 PTT (Actin FS) 28.6 SECONDS (26.0-38.0) 05/31/19 19:55 Sodium 139 mEq/L (136-145) 05/31/19 19:55 Potassium 3.7 mEq/L (3.5-5.1) 05/31/19 19:55 Chloride 106 mEq/L (98-107) 05/31/19 19:55 Carbon Dioxide 25.2 mEq/L (21.0-31.0) 05/31/19 19:55 Anion Gap 11.5 (7.0-16.0) 05/31/19 19:55 BUN 28 mg/dL (7-25) H 05/31/19 19:55 Creatinine 1.9 mg/dL (0.7-1.3) H 05/31/19 19:55 Est GFR ( Amer) 45.3 ml/min (>90) 05/31/19 19:55 Est GFR (Non-Af Amer) 37.4 ml/min 05/31/19 19:55 BUN/Creatinine Ratio 14.7 05/31/19 19:55 Glucose 149 mg/dL (70-105) H 05/31/19 19:55 POC Glucose 114 MG/DL (70 - 105) H 06/08/19 11:58 Calcium 9.4 mg/dL (8.6-10.3) 05/31/19 19:55 Total Bilirubin 0.7 mg/dL (0.3-1.0) 05/31/19 19:55 AST 11 U/L (13-39) L 05/31/19 19:55 ALT 12 U/L (7-52) 05/31/19 19:55 Alkaline Phosphatase 42 U/L (34-104) 05/31/19 19:55 Troponin I 0.01 ng/mL (0.01-0.05) 05/31/19 19:55 B-Natriuretic Peptide 10.1 pg/mL (5.0-100.0) 05/31/19 19:55 Total Protein 6.8 gm/dL (6.0-8.3) 05/31/19 19:55 Albumin 4.2 gm/dL (4.2-5.5) 05/31/19 19:55 Globulin 2.6 gm/dL 05/31/19 19:55 Albumin/Globulin Ratio 1.6 (1.0-1.8) 05/31/19 19:55 TSH 1.55 uIU/ml (0.34-5.60) 05/31/19 19:55 Urine Source MIDSTREAM 05/31/19 20:36 Urine Color YELLOW 05/31/19 20:36 Urine Clarity CLEAR (CLEAR) 05/31/19 20:36 Urine pH 6.0 (4.6 - 8.0) 05/31/19 20:36 Ur Specific [place] <= 1.005 (1.005-1.030) 05/31/19 20:36 Urine Protein NEGATIVE mg/dL (NEGATIVE) 05/31/19 20:36 Urine Glucose (UA) NEGATIVE mg/dL (NEGATIVE) 05/31/19 20:36 Urine Ketones NEGATIVE mg/dL (NEGATIVE) 05/31/19 20:36 Urine Blood TRACE (NEGATIVE) 05/31/19 20:36 Urine Nitrate NEGATIVE (NEGATIVE) 05/31/19 20:36 Urine Bilirubin NEGATIVE (NEGATIVE) 05/31/19 20:36 Urine Urobilinogen 0.2 E.U./dL (0.2 - 1.0) 05/31/19 20:36 Ur Leukocyte Esterase NEGATIVE (NEGATIVE) 05/31/19 20:36 Urine RBC 2-5 /hpf (0-5) H 05/31/19 20:36 Urine WBC 0-2 /hpf (0-5) 05/31/19 20:36 Ur Epithelial Cells OCCASIONAL /lpf (FEW) 05/31/19 20:36 Urine Bacteria FEW /hpf (NONE SEEN) 05/31/19 20:36 Urine Mucus FEW /lpf (FEW) 05/31/19 20:36 - Physical Exam Vitals and I&O: Vital Signs Temp 97.6 F 06/08/19 14:00 Pulse 92 06/08/19 14:00 Resp 18 06/08/19 14:00 BP 136/90 06/08/19 14:00 Pulse Ox 97 06/08/19 14:00 Intake & Output 06/07/19 06/08/19 06/08/19 18:59 06:59 18:59 Other: Stool Characteristics Soft Active Medications: Current Medications Acetaminophen (Tylenol) 650 mg PO Q4HR PRN PRN Reason: Mild Pain / Temp above 100 Stop: 07/30/19 21:33 Al Hydrox/Mg Hydrox/Simethicone (Maalox) 30 ml PO Q4H PRN PRN Reason: GI DISTRESS Stop: 07/30/19 21:33 Last Admin: 06/08/19 13:03 Dose: 30 ml Dextrose (D50w) 50 ml IVP PRN PRN PRN Reason: Blood Glucose less than 70 Stop: 08/04/19 18:25 Dextrose (Glutose 40%) 18.75 gm PO PRN PRN PRN Reason: Blood Glucose less than 70 Stop: 08/04/19 18:25 Glucagon (Glucagen) 1 mg IM PRN PRN PRN Reason: Blood Glucose less than 70 Stop: 08/04/19 18:25 Insulin Human Lispro (Humalog Insulin Sliding Scale) 0 units SUBQ [facility]; Protocol Stop: 08/04/19 20:59 Last Admin: 06/08/19 12:04 Dose: Not Given Lorazepam (Ativan) 0.5 mg PO Q4H PRN; Protocol PRN Reason: Anxiety Stop: 07/30/19 21:33 Last Admin: 06/06/19 21:26 Dose: 0.5 mg Magnesium Hydroxide (Milk Of Magnesia) 30 ml PO HS PRN PRN Reason: Constipation Olanzapine (Zyprexa) 10 mg PO BID [facility]; Protocol Stop: 07/31/19 08:59 Last Admin: 06/08/19 08:33 Dose: 10 mg Promethazine HCl/Dextromethorphan (Phenergan Dm 6.25/15mg-5 Ml) 10 ml PO TID PRN PRN Reason: Cough Stop: 08/03/19 06:01 Last Admin: 06/04/19 21:27 Dose: 10 ml Zolpidem Tartrate (Ambien) 5 mg PO HS PRN PRN Reason: Insomnia Stop: 07/30/19 21:33 Last Admin: 06/06/19 21:26 Dose: 5 mg General: alert, demented HEENT: NC/AT, PERRLA Neck: Supple Lungs: CTAB Abdomen: soft, non-tender, non-distended Extremities: excoriation Neurological: no change Internal Medicine Assmt/Plan - Assessment Assessment: Psychosis. Dehydration. Hypertension. - Plan Plan: Continuation of care. Monitor Labs. Monitor Vitals, Continue present Blood pressure med as directed. Continue present meds as directed. Monitor Diet/Nutritional support. Psych evaluation. Safety precaution. Supportive care. Fall precaution, frequent nursing rounds, and as needed restraints to prevent fall. Continue collaborating with consulting specialists, case management and nursing team. Will Monitor patient and continue current treatment plan as ordered. Nutritional Asmnt/Malnutr-PDOC - Dietary Evaluation Malnutrition Findings (Please click <Entered> for more info): Nutritional Asmnt/Malnutrition Start: 06/03/19 11: 18 Text: Status: Complete Freq: Protocol: Document 06/03/19 11:19 ANEESH (Rec: 06/03/19 11:21 ANEESH [email or web address]) Nutritional Asmnt/Malnutrition Patient General Information Nutritional Screening Moderate Risk Diagnosis Psychosis Pertinent Medical Hx/Surgical Hx HTN Subjective Information Pt is a 69-year-old male from detention admitted on 05/31 c /o agitation and refusing medication. Pt PO intake 100% since admission per Meal/ Nutrition Activity Record. HT: 58 WT: 140 LB (63.63 kg) BMI: 21.28 (Normal) GI: WNL, Flat BM: Not noted I/O: 1350/Not noted Skin: WNL, Intact Howard: 20 Diet Order: CCHO 60 gm, NERI Estimated Energy Needs: ( Geriatric, CBW) 6246-7777 kcals (25-30 kcals/ kg) 63-76 g Pro (1.0-1.2 g/kg) 0892-2254 ml (25-30 ml/kg) Pt is eating 100% of meals Per Meal/Nutrition Activity Record. Dietary is currently providing an estimated 1869 kcals and 98 gm Pro to meet 100% kcal and 100+% Pro needs. Current Diet Order/ Nutrition Support CCHO 60 gm, NERI Pertinent Medications Maalox (PRN), MOM (PRN) Pertinent Labs 06/01: POC Glucose 158 05/31: BUN/Cr 28/1.9, Glucose 149 Nutritional Hx/Data Height 5 ft 8 in Height (Calculated Centimeters) 172.7 Current Weight (lbs) 140 lb Weight (Calculated Kilograms) 63.5 Weight (Calculated Grams) 42588.9 [place] Body Weight 68.4 kg % [place] Body Weight 93 Body Mass Index (BMI) 21.2 Weight Status Approriate GI Symptoms GI Symptoms None Last BM Not noted Skin Integrity/Comment: WNL, Intact [place]: 20 Current %PO Good (75-100%) Estimated Nutritional Goals BEE in Kcals: Using Current wt Calories/Kcals/Kg 25-30 Kcals Calculated 9327-4734 Protein: Using Current wt Protein g/k.0-1.2 Protein Calculated 63-76 Fluid: ml 9604-1977 ml (25-30 ml/kg) Nutritional Problem 1. Problem Problem Altered Nutrition related labs Etiology r/t endocrine dysfunction Signs/Symptoms: aeb Glucose 149 (05/31) and POC Glucose 158 (06/01) Malnutrition Related to Morbid Obesity Malnutrition related to morbid obesity No Intervention/Recommendation Comments 1.Continue with CCHO 60 gm, NERI diet as ordered. Expected Outcomes/Goals Expected Outcomes/Goals 1.PO intake to continue to meet 75% of nutritional needs. 2.Monitor PO intake, wt, and skin integrity, and nutrition related labs to trend WNL 3.F/U as low risk in 7 days,
[2019-06-09] MEDS: INSULIN LISPRO SLIDING SCALE 100 UNITS/ML UNIT SUBQ SCH ×4 (07:01→20:59)
--- NOTE | 2019-06-09 13:58 | Internal Medicine Prog Note ---
Internal Medicine Subjective - Subjective Service Date: 06/09/19 Patient is:: awake, verbal, other (very aggressive.) Patient Complaints of:: other (still anxious.) Per staff patient has:: no adverse event, no episodes of fall, tolerating meds Internal Medicine Objective - Results Result Diagrams: 05/31/19 19:55 05/31/19 19:55 Recent Labs: Laboratory Last Values WBC 7.7 Th/cmm (4.8-10.8) 05/31/19 19:55 RBC 5.02 Mil/cmm (3.80-5.80) 05/31/19 19:55 Hgb 14.9 gm/dL (12-16) 05/31/19 19:55 Hct 44.2 % (41.0-60) 05/31/19 19:55 MCV 87.9 fl (80-99) 05/31/19 19:55 MCH 29.6 pg (27.0-31.0) 05/31/19 19:55 MCHC Differential 33.7 pg (28.0-36.0) 05/31/19 19:55 RDW 13.4 % (11.5-20.0) 05/31/19 19:55 Plt Count 234 Th/cmm (150-400) 05/31/19 19:55 MPV 7.3 fl 05/31/19 19:55 Neutrophils % 75.2 % (40.0-80.0) 05/31/19 19:55 Lymphocytes % 18.1 % (20.0-50.0) L 05/31/19 19:55 Monocytes % 4.2 % (2.0-10.0) 05/31/19 19:55 Eosinophils % 2.4 % (0.0-5.0) 05/31/19 19:55 Basophils % 0.1 % (0.0-2.0) 05/31/19 19:55 PT 9.5 SECONDS (9.5-11.5) 05/31/19 19:55 INR 0.91 (0.5-1.4) 05/31/19 19:55 PTT (Actin FS) 28.6 SECONDS (26.0-38.0) 05/31/19 19:55 Sodium 139 mEq/L (136-145) 05/31/19 19:55 Potassium 3.7 mEq/L (3.5-5.1) 05/31/19 19:55 Chloride 106 mEq/L (98-107) 05/31/19 19:55 Carbon Dioxide 25.2 mEq/L (21.0-31.0) 05/31/19 19:55 Anion Gap 11.5 (7.0-16.0) 05/31/19 19:55 BUN 28 mg/dL (7-25) H 05/31/19 19:55 Creatinine 1.9 mg/dL (0.7-1.3) H 05/31/19 19:55 Est GFR ( Amer) 45.3 ml/min (>90) 05/31/19 19:55 Est GFR (Non-Af Amer) 37.4 ml/min 05/31/19 19:55 BUN/Creatinine Ratio 14.7 05/31/19 19:55 Glucose 149 mg/dL (70-105) H 05/31/19 19:55 POC Glucose 184 MG/DL (70 - 105) H 06/09/19 11:55 Calcium 9.4 mg/dL (8.6-10.3) 05/31/19 19:55 Total Bilirubin 0.7 mg/dL (0.3-1.0) 05/31/19 19:55 AST 11 U/L (13-39) L 05/31/19 19:55 ALT 12 U/L (7-52) 05/31/19 19:55 Alkaline Phosphatase 42 U/L (34-104) 05/31/19 19:55 Troponin I 0.01 ng/mL (0.01-0.05) 05/31/19 19:55 B-Natriuretic Peptide 10.1 pg/mL (5.0-100.0) 05/31/19 19:55 Total Protein 6.8 gm/dL (6.0-8.3) 05/31/19 19:55 Albumin 4.2 gm/dL (4.2-5.5) 05/31/19 19:55 Globulin 2.6 gm/dL 05/31/19 19:55 Albumin/Globulin Ratio 1.6 (1.0-1.8) 05/31/19 19:55 TSH 1.55 uIU/ml (0.34-5.60) 05/31/19 19:55 Urine Source MIDSTREAM 05/31/19 20:36 Urine Color YELLOW 05/31/19 20:36 Urine Clarity CLEAR (CLEAR) 05/31/19 20:36 Urine pH 6.0 (4.6 - 8.0) 05/31/19 20:36 Ur Specific [place] <= 1.005 (1.005-1.030) 05/31/19 20:36 Urine Protein NEGATIVE mg/dL (NEGATIVE) 05/31/19 20:36 Urine Glucose (UA) NEGATIVE mg/dL (NEGATIVE) 05/31/19 20:36 Urine Ketones NEGATIVE mg/dL (NEGATIVE) 05/31/19 20:36 Urine Blood TRACE (NEGATIVE) 05/31/19 20:36 Urine Nitrate NEGATIVE (NEGATIVE) 05/31/19 20:36 Urine Bilirubin NEGATIVE (NEGATIVE) 05/31/19 20:36 Urine Urobilinogen 0.2 E.U./dL (0.2 - 1.0) 05/31/19 20:36 Ur Leukocyte Esterase NEGATIVE (NEGATIVE) 05/31/19 20:36 Urine RBC 2-5 /hpf (0-5) H 05/31/19 20:36 Urine WBC 0-2 /hpf (0-5) 05/31/19 20:36 Ur Epithelial Cells OCCASIONAL /lpf (FEW) 05/31/19 20:36 Urine Bacteria FEW /hpf (NONE SEEN) 05/31/19 20:36 Urine Mucus FEW /lpf (FEW) 05/31/19 20:36 - Physical Exam Vitals and I&O: Vital Signs Temp 98.3 F 06/09/19 06:43 Pulse 89 06/09/19 06:43 Resp 18 06/09/19 11:03 BP 119/73 06/09/19 06:43 Pulse Ox 98 06/09/19 06:43 Intake & Output 06/08/19 06/09/19 06/09/19 18:59 06:59 18:59 Intake Total 120 Balance 120 Intake: Oral 120 Other: # Voids 1 # Bowel Movements 0 Active Medications: Current Medications Acetaminophen (Tylenol) 650 mg PO Q4HR PRN PRN Reason: Mild Pain / Temp above 100 Stop: 07/30/19 21:33 Al Hydrox/Mg Hydrox/Simethicone (Maalox) 30 ml PO Q4H PRN PRN Reason: GI DISTRESS Stop: 07/30/19 21:33 Last Admin: 06/08/19 13:03 Dose: 30 ml Dextrose (D50w) 50 ml IVP PRN PRN PRN Reason: Blood Glucose less than 70 Stop: 08/04/19 18:25 Dextrose (Glutose 40%) 18.75 gm PO PRN PRN PRN Reason: Blood Glucose less than 70 Stop: 08/04/19 18:25 Glucagon (Glucagen) 1 mg IM PRN PRN PRN Reason: Blood Glucose less than 70 Stop: 08/04/19 18:25 Insulin Human Lispro (Humalog Insulin Sliding Scale) 0 units SUBQ ACHS GAURAV; Protocol Stop: 08/04/19 20:59 Last Admin: 06/09/19 12:52 Dose: 2 units Lorazepam (Ativan) 0.5 mg PO Q4H PRN; Protocol PRN Reason: Anxiety Stop: 07/30/19 21:33 Last Admin: 06/06/19 21:26 Dose: 0.5 mg Magnesium Hydroxide (Milk Of Magnesia) 30 ml PO HS PRN PRN Reason: Constipation Olanzapine (Zyprexa) 10 mg PO BID GAURAV; Protocol Stop: 07/31/19 08:59 Last Admin: 06/09/19 08:57 Dose: 10 mg Promethazine HCl/Dextromethorphan (Phenergan Dm 6.25/15mg-5 Ml) 10 ml PO TID PRN PRN Reason: Cough Stop: 08/03/19 06:01 Last Admin: 06/04/19 21:27 Dose: 10 ml Zolpidem Tartrate (Ambien) 5 mg PO HS PRN PRN Reason: Insomnia Stop: 07/30/19 21:33 Last Admin: 06/08/19 21:41 Dose: 5 mg General: alert, demented HEENT: NC/AT, PERRLA Neck: Supple Lungs: CTAB Abdomen: soft, non-tender, non-distended Extremities: excoriation Neurological: no change Internal Medicine Assmt/Plan - Assessment Assessment: Psychosis. Dehydration. Hypertension. - Plan Plan: Continuation of care. Monitor Labs. Monitor Vitals, Continue present Blood pressure med as directed. Continue present meds as directed. Monitor Diet/Nutritional support. Psych evaluation. Safety precaution. Supportive care. Fall precaution, frequent nursing rounds, and as needed restraints to prevent fall. Continue collaborating with consulting specialists, case management and nursing team. Will Monitor patient and continue current treatment plan as ordered. Nutritional Asmnt/Malnutr-PDOC - Dietary Evaluation Malnutrition Findings (Please click <Entered> for more info): Nutritional Asmnt/Malnutrition Start: 06/03/19 11: 18 Text: Status: Complete Freq: Protocol: Document 06/03/19 11:19 ANEESH (Rec: 06/03/19 11:21 [email or web address] [email or web address]) Nutritional Asmnt/Malnutrition Patient General Information Nutritional Screening Moderate Risk Diagnosis Psychosis Pertinent Medical Hx/Surgical Hx HTN Subjective Information Pt is a 69-year-old male from snf admitted on 05/31 c /o agitation and refusing medication. Pt PO intake 100% since admission per Meal/ Nutrition Activity Record. HT: 58 WT: 140 LB (63.63 kg) BMI: 21.28 (Normal) GI: WNL, Flat BM: Not noted I/O: 1350/Not noted Skin: WNL, Intact [place]: 20 Diet Order: CCHO 60 gm, NERI Estimated Energy Needs: ( Geriatric, CBW) 4637-3427 kcals (25-30 kcals/ kg) 63-76 g Pro (1.0-1.2 g/kg) 1661-7384 ml (25-30 ml/kg) Pt is eating 100% of meals Per Meal/Nutrition Activity Record. Dietary is currently providing an estimated 1869 kcals and 98 gm Pro to meet 100% kcal and 100+% Pro needs. Current Diet Order/ Nutrition Support CCHO 60 gm, NERI Pertinent Medications Maalox (PRN), MOM (PRN) Pertinent Labs 06/01: POC Glucose 158 05/31: BUN/Cr 28/1.9, Glucose 149 Nutritional Hx/Data Height 5 ft 8 in Height (Calculated Centimeters) 172.7 Current Weight (lbs) 140 lb Weight (Calculated Kilograms) 63.5 Weight (Calculated Grams) 58683.9 [place] Body Weight 68.4 kg % [place] Body Weight 93 Body Mass Index (BMI) 21.2 Weight Status Approriate GI Symptoms GI Symptoms None Last BM Not noted Skin Integrity/Comment: WNL, Intact Howard: 20 Current %PO Good (75-100%) Estimated Nutritional Goals BEE in Kcals: Using Current wt Calories/Kcals/Kg 25-30 Kcals Calculated 2266-8987 Protein: Using Current wt Protein g/k.0-1.2 Protein Calculated 63-76 Fluid: ml 7003-8142 ml (25-30 ml/kg) Nutritional Problem 1. Problem Problem Altered Nutrition related labs Etiology r/t endocrine dysfunction Signs/Symptoms: aeb Glucose 149 (/) and POC Glucose 158 (06/01) Malnutrition Related to Morbid Obesity Malnutrition related to morbid obesity No Intervention/Recommendation Comments 1.Continue with CCHO 60 gm, NERI diet as ordered. Expected Outcomes/Goals Expected Outcomes/Goals 1.PO intake to continue to meet 75% of nutritional needs. 2.Monitor PO intake, wt, and skin integrity, and nutrition related labs to trend WNL 3.F/U as low risk in 7 days,
--- NOTE | 2019-06-09 20:50 | Progress Notes ---
DATE: SUBJECTIVE: Chart was reviewed and the patient interviewed. Also discussed the patient's condition with the staff and reviewed records and labs. The patient still has episodes of anxiety and episodes of yelling and striking out, but seems to be easier to redirect him and it seems that the episodes are less than before. The patient also still has unpredictable behavior. Also, is still having mood swings. Otherwise, the patient is compliant with taking his medications. The patient denies any side effects of medications. ASSESSMENT: The patient is still confused and has unpredictable behavior. TREATMENT PLAN: We will continue to monitor behavior and condition closely. Also, continue Zyprexa 10 mg twice a day and continue to work on behavioral modifications and follow up closely. [facility]# [id number]
--- NOTE | 2019-06-10 01:57 | Progress Notes ---
DATE: 06/09/2019 SUBJECTIVE: Chart was reviewed and the patient interviewed. Also discussed the patient's condition with the staff and reviewed records and labs. The patient still had episodes of yelling and striking out for no reason. Also, still suspicious and paranoid and is still easily agitated. Also, still has difficulty following any of staff directions. The patient also is still exhibiting unpredictable behavior. On the other hand, the patient is compliant with taking his medications, with no side effects of medications ASSESSMENT: The patient is still psychotic and still unpredictable. TREATMENT PLAN: Continue to monitor his behavior and his condition closely. Also, continue Zyprexa same dose and continue to follow up closely. JOB# [id number]
[2019-06-10] MEDS: INSULIN LISPRO SLIDING SCALE 100 UNITS/ML UNIT SUBQ SCH ×4 (06:43→20:51)
--- NOTE | 2019-06-10 07:24 | Progress Notes ---
DATE: 06/10/2019 SUBJECTIVE: Chart was reviewed and the patient interviewed. Also discussed the patient's condition with the staff and reviewed records and labs. The patient is still easily irritable and is still confused. The patient also is still actively hallucinating and is still talking to self. The patient also still has episodes of yelling and screaming, but seems to be less than before. He also still seems to be suspicious and anxious. Otherwise, the patient is interacting minimally and is compliant with taking his medications. ASSESSMENT: The patient is still psychotic and still needs close monitoring. TREATMENT PLAN: Continue Zyprexa 10 mg twice a day. Also, continue to work on behavioral modification. JOB# [id number]
--- NOTE | 2019-06-10 13:52 | Internal Medicine Prog Note ---
Internal Medicine Subjective - Subjective Patient is:: awake, verbal, other (very aggressive, unpredictable behavior) Patient Complaints of:: other (still anxious.) Per staff patient has:: no adverse event, no episodes of fall, tolerating meds Internal Medicine Objective - Results Result Diagrams: 05/31/19 19:55 05/31/19 19: Recent Labs: Laboratory Last Values WBC 7.7 Th/cmm (4.8-10.8) 05/31/19 19:55 RBC 5.02 Mil/cmm (3.80-5.80) 05/31/19 19:55 Hgb 14.9 gm/dL (12-16) 05/31/19 19:55 Hct 44.2 % (41.0-60) 05/31/19 19: MCV 87.9 fl (80-99) 05/31/19 19: MCH 29.6 pg (27.0-31.0) 05/31/19: MCHC Differential 33.7 pg (28.0-36.0) 05/31/19 19: RDW 13.4 % (11.5-20.0) 05/31/19 19: Plt Count 234 Th/cmm (150-400) 05/31/19 19:55 MPV 7.3 fl 05/31/19 19:55 Neutrophils % 75.2 % (40.0-80.0) 05/31/19 19: Lymphocytes % 18.1 % (20.0-50.0) L 05/31/19: Monocytes % 4.2 % (2.0-10.0) 05/31/19: Eosinophils % 2.4 % (0.0-5.0) 05/31/19 19: Basophils % 0.1 % (0.0-2.0) 05/31/19 19:55 PT 9.5 SECONDS (9.5-11.5) 05/31/19 19: INR 0.91 (0.5-1.4) 05/31/19 19:55 PTT (Actin FS) 28.6 SECONDS (26.0-38.0) 05/31/19 19:55 Sodium 139 mEq/L (136-145) 05/31/19 19:55 Potassium 3.7 mEq/L (3.5-5.1) 05/31/19 19:55 Chloride 106 mEq/L (98-107) 05/31/19 19:55 Carbon Dioxide 25.2 mEq/L (21.0-31.0) 05/31/19 19:55 Anion Gap 11.5 (7.0-16.0) 05/31/19 19:55 BUN 28 mg/dL (7-25) H 05/31/19 19:55 Creatinine 1.9 mg/dL (0.7-1.3) H 05/31/19 19:55 Est GFR ( Amer) 45.3 ml/min (>90) 05/31/19 19:55 Est GFR (Non-Af Amer) 37.4 ml/min 05/31/19 19:55 BUN/Creatinine Ratio 14.7 05/31/19 19:55 Glucose 149 mg/dL (70-105) H 05/31/19 19:55 POC Glucose 181 MG/DL (70 - 105) H 06/10/19 11:52 Calcium 9.4 mg/dL (8.6-10.3) 05/31/19 19:55 Total Bilirubin 0.7 mg/dL (0.3-1.0) 05/31/19 19:55 AST 11 U/L (13-39) L 05/31/19 19:55 ALT 12 U/L (7-52) 05/31/19 19:55 Alkaline Phosphatase 42 U/L (34-104) 05/31/19 19:55 Troponin I 0.01 ng/mL (0.01-0.05) 05/31/19 19:55 B-Natriuretic Peptide 10.1 pg/mL (5.0-100.0) 05/31/19 19:55 Total Protein 6.8 gm/dL (6.0-8.3) 05/31/19 19:55 Albumin 4.2 gm/dL (4.2-5.5) 05/31/19 19:55 Globulin 2.6 gm/dL 05/31/19 19:55 Albumin/Globulin Ratio 1.6 (1.0-1.8) 05/31/19 19:55 TSH 1.55 uIU/ml (0.34-5.60) 05/31/19 19:55 Urine Source MIDSTREAM 05/31/19 20:36 Urine Color YELLOW 05/31/19 20:36 Urine Clarity CLEAR (CLEAR) 05/31/19 20:36 Urine pH 6.0 (4.6 - 8.0) 05/31/19 20:36 Ur Specific [place] <= 1.005 (1.005-1.030) 05/31/19 20:36 Urine Protein NEGATIVE mg/dL (NEGATIVE) 05/31/19 20:36 Urine Glucose (UA) NEGATIVE mg/dL (NEGATIVE) 05/31/19 20:36 Urine Ketones NEGATIVE mg/dL (NEGATIVE) 05/31/19 20:36 Urine Blood TRACE (NEGATIVE) 05/31/19 20:36 Urine Nitrate NEGATIVE (NEGATIVE) 05/31/19 20:36 Urine Bilirubin NEGATIVE (NEGATIVE) 05/31/19 20:36 Urine Urobilinogen 0.2 E.U./dL (0.2 - 1.0) 05/31/19 20:36 Ur Leukocyte Esterase NEGATIVE (NEGATIVE) 05/31/19 20:36 Urine RBC 2-5 /hpf (0-5) H 05/31/19 20:36 Urine WBC 0-2 /hpf (0-5) 05/31/19 20:36 Ur Epithelial Cells OCCASIONAL /lpf (FEW) 05/31/19 20:36 Urine Bacteria FEW /hpf (NONE SEEN) 05/31/19 20:36 Urine Mucus FEW /lpf (FEW) 05/31/19 20:36 - Physical Exam Vitals and I&O: Vital Signs Temp 97.2 F 06/10/19 06:43 Pulse 76 06/10/19 06:43 Resp 18 06/10/19 08:00 BP 107/70 06/10/19 06:43 Pulse Ox 97 06/10/19 06:43 Intake & Output 06/09/19 06/10/19 06/10/19 18:59 06:59 18:59 Intake Total 120 Balance 120 Intake: Oral 120 Other: # Voids 3 Active Medications: Current Medications Acetaminophen (Tylenol) 650 mg PO Q4HR PRN PRN Reason: Mild Pain / Temp above 100 Stop: 07/30/19 21:33 Al Hydrox/Mg Hydrox/Simethicone (Maalox) 30 ml PO Q4H PRN PRN Reason: GI DISTRESS Stop: 07/30/19 21:33 Last Admin: 06/08/19 13:03 Dose: 30 ml Dextrose (D50w) 50 ml IVP PRN PRN PRN Reason: Blood Glucose less than 70 Stop: 08/04/19 18:25 Dextrose (Glutose 40%) 18.75 gm PO PRN PRN PRN Reason: Blood Glucose less than 70 Stop: 08/04/19 18:25 Glucagon (Glucagen) 1 mg IM PRN PRN PRN Reason: Blood Glucose less than 70 Stop: 08/04/19 18:25 Insulin Human Lispro (Humalog Insulin Sliding Scale) 0 units SUBQ [facility]; Protocol Stop: 08/04/19 20:59 Last Admin: 06/10/19 12:03 Dose: 2 units Lorazepam (Ativan) 0.5 mg PO Q4H PRN; Protocol PRN Reason: Anxiety Stop: 07/30/19 21:33 Last Admin: 06/06/19 21:26 Dose: 0.5 mg Magnesium Hydroxide (Milk Of Magnesia) 30 ml PO HS PRN PRN Reason: Constipation Olanzapine (Zyprexa) 10 mg PO BID [facility]; Protocol Stop: 07/31/19 08:59 Last Admin: 06/10/19 08:42 Dose: 10 mg Promethazine HCl/Dextromethorphan (Phenergan Dm 6.25/15mg-5 Ml) 10 ml PO TID PRN PRN Reason: Cough Stop: 08/03/19 06:01 Last Admin: 06/04/19 21:27 Dose: 10 ml Zolpidem Tartrate (Ambien) 5 mg PO HS PRN PRN Reason: Insomnia Stop: 07/30/19 21:33 Last Admin: 06/08/19 21:41 Dose: 5 mg Physical Exam: Patient is agitated. General: alert, demented HEENT: NC/AT, PERRLA Neck: Supple Lungs: CTAB Abdomen: soft, non-tender, non-distended Extremities: excoriation Neurological: no change Internal Medicine Assmt/Plan - Assessment Assessment: Psychosis. Anxiety. Dehydration. Htn. - Plan Plan: Continuation of care. Monitor Labs. Continue present meds as directed. Monitor vitals, Continue BP meds as directed. Monitor Diet/Nutritional support. Psych management per psych. Pain Management. Physical therapyn prn. Occupational therapy prn. Fall precaution, frequent nursing rounds, and as needed restraints to prevent fall. Safety precaution. Supportive care. Continue collaborating with consulting specialists, case management and nursing team. Will Monitor patient and continue present care management. Nutritional Asmnt/Malnutr-PDOC - Dietary Evaluation Malnutrition Findings (Please click <Entered> for more info): Nutritional Asmnt/Malnutrition Start: 06/03/19 11: 18 Text: Status: Complete Freq: Protocol: Document 06/03/19 11:19 ANEESH (Rec: 06/03/19 11:21 ANEESH [email or web address]) Nutritional Asmnt/Malnutrition Patient General Information Nutritional Screening Moderate Risk Diagnosis Psychosis Pertinent Medical Hx/Surgical Hx HTN Subjective Information Pt is a 69-year-old male from alf admitted on 05/31 c /o agitation and refusing medication. Pt PO intake 100% since admission per Meal/ Nutrition Activity Record. HT: 58 WT: 140 LB (63.63 kg) BMI: 21.28 (Normal) GI: WNL, Flat BM: Not noted I/O: 1350/Not noted Skin: WNL, Intact Howard: 20 Diet Order: CCHO 60 gm, NERI Estimated Energy Needs: ( Geriatric, CBW) 1312-3480 kcals (25-30 kcals/ kg) 63-76 g Pro (1.0-1.2 g/kg) 5175-9276 ml (25-30 ml/kg) Pt is eating 100% of meals Per Meal/Nutrition Activity Record. Dietary is currently providing an estimated 1869 kcals and 98 gm Pro to meet 100% kcal and 100+% Pro needs. Current Diet Order/ Nutrition Support CCHO 60 gm, NERI Pertinent Medications Maalox (PRN), MOM (PRN) Pertinent Labs 06/01: POC Glucose 158 05/31: BUN/Cr 28/1.9, Glucose 149 Nutritional Hx/Data Height 1.73 m Height (Calculated Centimeters) 172.7 Current Weight (lbs) 63.503 kg Weight (Calculated Kilograms) 63.5 Weight (Calculated Grams) 53150.9 [place] Body Weight 68.4 kg % [place] Body Weight 93 Body Mass Index (BMI) 21.2 Weight Status Approriate GI Symptoms GI Symptoms None Last BM Not noted Skin Integrity/Comment: WNL, Intact [place]: 20 Current %PO Good (75-100%) Estimated Nutritional Goals BEE in Kcals: Using Current wt Calories/Kcals/Kg 25-30 Kcals Calculated 8591-7078 Protein: Using Current wt Protein g/k.0-1.2 Protein Calculated 63-76 Fluid: ml 6257-0884 ml (25-30 ml/kg) Nutritional Problem 1. Problem Problem Altered Nutrition related labs Etiology r/t endocrine dysfunction Signs/Symptoms: aeb Glucose 149 (05/31) and POC Glucose 158 (06/01) Malnutrition Related to Morbid Obesity Malnutrition related to morbid obesity No Intervention/Recommendation Comments 1.Continue with CCHO 60 gm, NERI diet as ordered. Expected Outcomes/Goals Expected Outcomes/Goals 1.PO intake to continue to meet 75% of nutritional needs. 2.Monitor PO intake, wt, and skin integrity, and nutrition related labs to trend WNL 3.F/U as low risk in 7 days,
[2019-06-11] MEDS: INSULIN LISPRO SLIDING SCALE 100 UNITS/ML UNIT SUBQ SCH ×3 (06:41→21:21)
--- NOTE | 2019-06-11 10:53 | Internal Medicine Prog Note ---
Internal Medicine Subjective - Subjective Patient seen and examined:: chart reviewed Patient is:: awake, verbal, other (irritable , confused , still psychotic ) Patient Complaints of:: other (still anxious.) Per staff patient has:: no adverse event, no episodes of fall, tolerating meds Internal Medicine Objective - Results Result Diagrams: 05/31/19 19:55 05/31/19 19:55 Recent Labs: Laboratory Last Values WBC 7.7 Th/cmm (4.8-10.8) 05/31/19 19:55 RBC 5.02 Mil/cmm (3.80-5.80) 05/31/19 19:55 Hgb 14.9 gm/dL (12-16) 05/31/19 19:55 Hct 44.2 % (41.0-60) 05/31/19 19:55 MCV 87.9 fl (80-99) 05/31/19 19:55 MCH 29.6 pg (27.0-31.0) 05/31/19 19:55 MCHC Differential 33.7 pg (28.0-36.0) 05/31/19 19:55 RDW 13.4 % (11.5-20.0) 05/31/19 19:55 Plt Count 234 Th/cmm (150-400) 05/31/19 19:55 MPV 7.3 fl 05/31/19 19:55 Neutrophils % 75.2 % (40.0-80.0) 05/31/19 19:55 Lymphocytes % 18.1 % (20.0-50.0) L 05/31/19 19:55 Monocytes % 4.2 % (2.0-10.0) 05/31/19 19:55 Eosinophils % 2.4 % (0.0-5.0) 05/31/19 19:55 Basophils % 0.1 % (0.0-2.0) 05/31/19 19:55 PT 9.5 SECONDS (9.5-11.5) 05/31/19 19:55 INR 0.91 (0.5-1.4) 05/31/19 19:55 PTT (Actin FS) 28.6 SECONDS (26.0-38.0) 05/31/19 19:55 Sodium 139 mEq/L (136-145) 05/31/19 19:55 Potassium 3.7 mEq/L (3.5-5.1) 05/31/19 19:55 Chloride 106 mEq/L (98-107) 05/31/19 19:55 Carbon Dioxide 25.2 mEq/L (21.0-31.0) 05/31/19 19:55 Anion Gap 11.5 (7.0-16.0) 05/31/19 19:55 BUN 28 mg/dL (7-25) H 05/31/19 19:55 Creatinine 1.9 mg/dL (0.7-1.3) H 05/31/19 19:55 Est GFR ( Amer) 45.3 ml/min (>90) 05/31/19 19:55 Est GFR (Non-Af Amer) 37.4 ml/min 05/31/19 19:55 BUN/Creatinine Ratio 14.7 05/31/19 19:55 Glucose 149 mg/dL (70-105) H 05/31/19 19:55 POC Glucose 184 MG/DL (70 - 105) H 06/11/19 05:35 Calcium 9.4 mg/dL (8.6-10.3) 05/31/19 19:55 Total Bilirubin 0.7 mg/dL (0.3-1.0) 05/31/19 19:55 AST 11 U/L (13-39) L 05/31/19 19:55 ALT 12 U/L (7-52) 05/31/19 19:55 Alkaline Phosphatase 42 U/L (34-104) 05/31/19 19:55 Troponin I 0.01 ng/mL (0.01-0.05) 05/31/19 19:55 B-Natriuretic Peptide 10.1 pg/mL (5.0-100.0) 05/31/19 19:55 Total Protein 6.8 gm/dL (6.0-8.3) 05/31/19 19:55 Albumin 4.2 gm/dL (4.2-5.5) 05/31/19 19:55 Globulin 2.6 gm/dL 05/31/19 19:55 Albumin/Globulin Ratio 1.6 (1.0-1.8) 05/31/19 19:55 TSH 1.55 uIU/ml (0.34-5.60) 05/31/19 19:55 Urine Source MIDSTREAM 05/31/19 20:36 Urine Color YELLOW 05/31/19 20:36 Urine Clarity CLEAR (CLEAR) 05/31/19 20:36 Urine pH 6.0 (4.6 - 8.0) 05/31/19 20:36 Ur Specific [place] <= 1.005 (1.005-1.030) 05/31/19 20:36 Urine Protein NEGATIVE mg/dL (NEGATIVE) 05/31/19 20:36 Urine Glucose (UA) NEGATIVE mg/dL (NEGATIVE) 05/31/19 20:36 Urine Ketones NEGATIVE mg/dL (NEGATIVE) 05/31/19 20:36 Urine Blood TRACE (NEGATIVE) 05/31/19 20:36 Urine Nitrate NEGATIVE (NEGATIVE) 05/31/19 20:36 Urine Bilirubin NEGATIVE (NEGATIVE) 05/31/19 20:36 Urine Urobilinogen 0.2 E.U./dL (0.2 - 1.0) 05/31/19 20:36 Ur Leukocyte Esterase NEGATIVE (NEGATIVE) 05/31/19 20:36 Urine RBC 2-5 /hpf (0-5) H 05/31/19 20:36 Urine WBC 0-2 /hpf (0-5) 05/31/19 20:36 Ur Epithelial Cells OCCASIONAL /lpf (FEW) 05/31/19 20:36 Urine Bacteria FEW /hpf (NONE SEEN) 05/31/19 20:36 Urine Mucus FEW /lpf (FEW) 05/31/19 20:36 - Physical Exam Vitals and I&O: Vital Signs Temp 97.6 F 06/11/19 05:48 Pulse 81 06/11/19 05:48 Resp 19 06/11/19 05:48 BP 123/81 06/11/19 05:48 Pulse Ox 96 06/11/19 05:48 Intake & Output 06/10/19 06/11/19 06/11/19 18:59 06:59 18:59 Intake Total 800 1200 Balance 800 1200 Intake: Oral 800 1200 Other: # Voids 3 2 # Bowel Movements 1 Active Medications: Current Medications Acetaminophen (Tylenol) 650 mg PO Q4HR PRN PRN Reason: Mild Pain / Temp above 100 Stop: 07/30/19 21:33 Al Hydrox/Mg Hydrox/Simethicone (Maalox) 30 ml PO Q4H PRN PRN Reason: GI DISTRESS Stop: 07/30/19 21:33 Last Admin: 06/08/19 13:03 Dose: 30 ml Dextrose (D50w) 50 ml IVP PRN PRN PRN Reason: Blood Glucose less than 70 Stop: 08/04/19 18:25 Dextrose (Glutose 40%) 18.75 gm PO PRN PRN PRN Reason: Blood Glucose less than 70 Stop: 08/04/19 18:25 Glucagon (Glucagen) 1 mg IM PRN PRN PRN Reason: Blood Glucose less than 70 Stop: 08/04/19 18:25 Insulin Human Lispro (Humalog Insulin Sliding Scale) 0 units SUBQ ACHS [facility]; Protocol Stop: 08/04/19 20:59 Last Admin: 06/11/19 06:41 Dose: 2 units Lorazepam (Ativan) 0.5 mg PO Q4H PRN; Protocol PRN Reason: Anxiety Stop: 07/30/19 21:33 Last Admin: 06/06/19 21:26 Dose: 0.5 mg Magnesium Hydroxide (Milk Of Magnesia) 30 ml PO HS PRN PRN Reason: Constipation Olanzapine (Zyprexa) 10 mg PO BID GAURAV; Protocol Stop: 07/31/19 08:59 Last Admin: 06/11/19 09:26 Dose: 10 mg Promethazine HCl/Dextromethorphan (Phenergan Dm 6.25/15mg-5 Ml) 10 ml PO TID PRN PRN Reason: Cough Stop: 08/03/19 06:01 Last Admin: 06/04/19 21:27 Dose: 10 ml Zolpidem Tartrate (Ambien) 5 mg PO HS PRN PRN Reason: Insomnia Stop: 07/30/19 21:33 Last Admin: 06/08/19 21:41 Dose: 5 mg Physical Exam: Patient is agitated. General: alert, demented HEENT: NC/AT, PERRLA Neck: Supple Lungs: CTAB Abdomen: soft, non-tender, non-distended Extremities: excoriation Neurological: no change Internal Medicine Assmt/Plan - Assessment Assessment: Psychosis. Anxiety. Dehydration. Htn. - Plan Plan: Continuation of care. Monitor Labs. Continue present meds as directed. Monitor vitals, Continue BP meds as directed. Monitor Diet/Nutritional support. Psych management per psych. Pain Management. Physical therapyn prn. Occupational therapy prn. Fall precaution, frequent nursing rounds, and as needed restraints to prevent fall. Safety precaution. Supportive care. Continue collaborating with consulting specialists, case management and nursing team. Will Monitor patient and continue present care management. Nutritional Asmnt/Malnutr-PDOC - Dietary Evaluation Malnutrition Findings (Please click <Entered> for more info): Nutritional Asmnt/Malnutrition Start: 06/03/19 11: 18 Text: Status: Complete Freq: Protocol: Document 06/03/19 11:19 ANEESH (Rec: 06/03/19 11:21 [email or web address]) Nutritional Asmnt/Malnutrition Patient General Information Nutritional Screening Moderate Risk Diagnosis Psychosis Pertinent Medical Hx/Surgical Hx HTN Subjective Information Pt is a 69-year-old male from senior living admitted on 05/31 c /o agitation and refusing medication. Pt PO intake 100% since admission per Meal/ Nutrition Activity Record. HT: 58 WT: 140 LB (63.63 kg) BMI: 21.28 (Normal) GI: WNL, Flat BM: Not noted I/O: 1350/Not noted Skin: WNL, Intact Howard: 20 Diet Order: CCHO 60 gm, NERI Estimated Energy Needs: ( Geriatric, CBW) 3889-4502 kcals (25-30 kcals/ kg) 63-76 g Pro (1.0-1.2 g/kg) 7136-3915 ml (25-30 ml/kg) Pt is eating 100% of meals Per Meal/Nutrition Activity Record. Dietary is currently providing an estimated 1869 kcals and 98 gm Pro to meet 100% kcal and 100+% Pro needs. Current Diet Order/ Nutrition Support CCHO 60 gm, NERI Pertinent Medications Maalox (PRN), MOM (PRN) Pertinent Labs 06/01: POC Glucose 158 05/31: BUN/Cr 28/1.9, Glucose 149 Nutritional Hx/Data Height 1.73 m Height (Calculated Centimeters) 172.7 Current Weight (lbs) 63.503 kg Weight (Calculated Kilograms) 63.5 Weight (Calculated Grams) 62567.9 [place] Body Weight 68.4 kg % [place] Body Weight 93 Body Mass Index (BMI) 21.2 Weight Status Approriate GI Symptoms GI Symptoms None Last BM Not noted Skin Integrity/Comment: WNL, Intact Howard: 20 Current %PO Good (75-100%) Estimated Nutritional Goals BEE in Kcals: Using Current wt Calories/Kcals/Kg 25-30 Kcals Calculated 0641-4051 Protein: Using Current wt Protein g/k.0-1.2 Protein Calculated 63-76 Fluid: ml 7719-3233 ml (25-30 ml/kg) Nutritional Problem 1. Problem Problem Altered Nutrition related labs Etiology r/t endocrine dysfunction Signs/Symptoms: aeb Glucose 149 (05/31) and POC Glucose 158 (06/01) Malnutrition Related to Morbid Obesity Malnutrition related to morbid obesity No Intervention/Recommendation Comments 1.Continue with CCHO 60 gm, NERI diet as ordered. Expected Outcomes/Goals Expected Outcomes/Goals 1.PO intake to continue to meet 75% of nutritional needs. 2.Monitor PO intake, wt, and skin integrity, and nutrition related labs to trend WNL 3.F/U as low risk in 7 days,
--- NOTE | 2019-06-11 17:20 | Progress Notes ---
DATE: 06/11/2019 Case was discussed with staff of the patient, reviewed records. Covering for Dr. Georges. A 69-year-old male who was admitted on 05/31/2019 because of agitation, hallucination with a history of psychosis, with history of bipolar disorder. The patient came from [facility]. The patient was very agitated. He was actively hallucinating, yelling and screaming, striking out behavior, unable to follow staff direction, uncooperative, angry, and irritable. He was having a lot of anxiety, paranoid toward the staff, with a history of schizophrenia. The patient continues to have some anxiety, yelling and screaming and striking out, however, he is easier to redirect. Other episodes when I saw him before, he continues to be unpredictable and impulsive. He is on Zyprexa 10 mg twice a day. We will continue outpatient group therapy, milieu therapy, adjust medication as needed. JOB# [id number]
[2019-06-12] MEDS: INSULIN LISPRO SLIDING SCALE 100 UNITS/ML UNIT SUBQ SCH ×4 (06:42→21:13)
--- NOTE | 2019-06-12 09:41 | Internal Medicine Prog Note ---
Internal Medicine Subjective - Subjective Patient is:: awake, verbal, other (irritable , confused , still psychotic ) Patient Complaints of:: other (still anxious.) Per staff patient has:: no adverse event, no episodes of fall, tolerating meds Internal Medicine Objective - Results Result Diagrams: 05/31/19 19:55 05/31/19 19:55 Recent Labs: Laboratory Last Values WBC 7.7 Th/cmm (4.8-10.8) 05/31/19 19:55 RBC 5.02 Mil/cmm (3.80-5.80) 05/31/19 19:55 Hgb 14.9 gm/dL (12-16) 05/31/19 19: Hct 44.2 % (41.0-60) 05/31/19 19: MCV 87.9 fl (80-99) 05/31/19 19: MCH 29.6 pg (27.0-31.0) 05/31/19 19: MCHC Differential 33.7 pg (28.0-36.0) 05/31/19 19: RDW 13.4 % (11.5-20.0) 05/31/19 19:55 Plt Count 234 Th/cmm (150-400) 05/31/19 19:55 MPV 7.3 fl 05/31/19 19:55 Neutrophils % 75.2 % (40.0-80.0) 05/31/19 19: Lymphocytes % 18.1 % (20.0-50.0) L 05/31/19 19: Monocytes % 4.2 % (2.0-10.0) 05/31/19 19: Eosinophils % 2.4 % (0.0-5.0) 05/31/19 19: Basophils % 0.1 % (0.0-2.0) 05/31/19 19:55 PT 9.5 SECONDS (9.5-11.5) 05/31/19 19: INR 0.91 (0.5-1.4) 05/31/19 19:55 PTT (Actin FS) 28.6 SECONDS (26.0-38.0) 05/31/19 19:55 Sodium 139 mEq/L (136-145) 05/31/19 19:55 Potassium 3.7 mEq/L (3.5-5.1) 05/31/19 19:55 Chloride 106 mEq/L (98-107) 05/31/19 19:55 Carbon Dioxide 25.2 mEq/L (21.0-31.0) 05/31/19 19:55 Anion Gap 11.5 (7.0-16.0) 05/31/19 19:55 BUN 28 mg/dL (7-25) H 05/31/19 19:55 Creatinine 1.9 mg/dL (0.7-1.3) H 05/31/19 19:55 Est GFR ( Amer) 45.3 ml/min (>90) 05/31/19 19:55 Est GFR (Non-Af Amer) 37.4 ml/min 05/31/19 19:55 BUN/Creatinine Ratio 14.7 05/31/19 19:55 Glucose 149 mg/dL (70-105) H 05/31/19 19:55 POC Glucose 192 MG/DL (70 - 105) H 06/12/19 06:04 Calcium 9.4 mg/dL (8.6-10.3) 05/31/19 19:55 Total Bilirubin 0.7 mg/dL (0.3-1.0) 05/31/19 19:55 AST 11 U/L (13-39) L 05/31/19 19:55 ALT 12 U/L (7-52) 05/31/19 19:55 Alkaline Phosphatase 42 U/L (34-104) 05/31/19 19:55 Troponin I 0.01 ng/mL (0.01-0.05) 05/31/19 19:55 B-Natriuretic Peptide 10.1 pg/mL (5.0-100.0) 05/31/19 19:55 Total Protein 6.8 gm/dL (6.0-8.3) 05/31/19 19:55 Albumin 4.2 gm/dL (4.2-5.5) 05/31/19 19:55 Globulin 2.6 gm/dL 05/31/19 19:55 Albumin/Globulin Ratio 1.6 (1.0-1.8) 05/31/19 19:55 TSH 1.55 uIU/ml (0.34-5.60) 05/31/19 19:55 Urine Source MIDSTREAM 05/31/19 20:36 Urine Color YELLOW 05/31/19 20:36 Urine Clarity CLEAR (CLEAR) 05/31/19 20:36 Urine pH 6.0 (4.6 - 8.0) 05/31/19 20:36 Ur Specific [place] <= 1.005 (1.005-1.030) 05/31/19 20:36 Urine Protein NEGATIVE mg/dL (NEGATIVE) 05/31/19 20:36 Urine Glucose (UA) NEGATIVE mg/dL (NEGATIVE) 05/31/19 20:36 Urine Ketones NEGATIVE mg/dL (NEGATIVE) 05/31/19 20:36 Urine Blood TRACE (NEGATIVE) 05/31/19 20:36 Urine Nitrate NEGATIVE (NEGATIVE) 05/31/19 20:36 Urine Bilirubin NEGATIVE (NEGATIVE) 05/31/19 20:36 Urine Urobilinogen 0.2 E.U./dL (0.2 - 1.0) 05/31/19 20:36 Ur Leukocyte Esterase NEGATIVE (NEGATIVE) 05/31/19 20:36 Urine RBC 2-5 /hpf (0-5) H 05/31/19 20:36 Urine WBC 0-2 /hpf (0-5) 05/31/19 20:36 Ur Epithelial Cells OCCASIONAL /lpf (FEW) 05/31/19 20:36 Urine Bacteria FEW /hpf (NONE SEEN) 05/31/19 20:36 Urine Mucus FEW /lpf (FEW) 05/31/19 20:36 - Physical Exam Vitals and I&O: Vital Signs Temp 98.1 F 06/12/19 06:03 Pulse 78 06/12/19 06:03 Resp 19 06/12/19 07:19 BP 114/72 06/12/19 06:03 Pulse Ox 96 06/12/19 06:03 Intake & Output 06/11/19 06/12/19 06/12/19 18:59 06:59 18:59 Intake Total 1200 Balance 1200 Intake: Oral 1200 Other: # Bowel Movements 1 Active Medications: Current Medications Acetaminophen (Tylenol) 650 mg PO Q4HR PRN PRN Reason: Mild Pain / Temp above 100 Stop: 07/30/19 21:33 Al Hydrox/Mg Hydrox/Simethicone (Maalox) 30 ml PO Q4H PRN PRN Reason: GI DISTRESS Stop: 07/30/19 21:33 Last Admin: 06/08/19 13:03 Dose: 30 ml Dextrose (D50w) 50 ml IVP PRN PRN PRN Reason: Blood Glucose less than 70 Stop: 08/04/19 18:25 Dextrose (Glutose 40%) 18.75 gm PO PRN PRN PRN Reason: Blood Glucose less than 70 Stop: 08/04/19 18:25 Glucagon (Glucagen) 1 mg IM PRN PRN PRN Reason: Blood Glucose less than 70 Stop: 08/04/19 18:25 Insulin Human Lispro (Humalog Insulin Sliding Scale) 0 units SUBQ ACHS COUNT [facility]; Protocol Stop: 08/04/19 20:59 Last Admin: 06/12/19 06:42 Dose: 2 units Lorazepam (Ativan) 0.5 mg PO Q4H PRN; Protocol PRN Reason: Anxiety Stop: 07/30/19 21:33 Last Admin: 06/06/19 21:26 Dose: 0.5 mg Olanzapine (Zyprexa) 10 mg PO BID GAURAV; Protocol Stop: 07/31/19 08:59 Last Admin: 06/12/19 08:27 Dose: 10 mg Promethazine HCl/Dextromethorphan (Phenergan Dm 6.25/15mg-5 Ml) 10 ml PO TID PRN PRN Reason: Cough Stop: 08/03/19 06:01 Last Admin: 06/04/19 21:27 Dose: 10 ml Zolpidem Tartrate (Ambien) 5 mg PO HS PRN PRN Reason: Insomnia Stop: 07/30/19 21:33 Last Admin: 06/08/19 21:41 Dose: 5 mg General: alert, demented HEENT: NC/AT, PERRLA Neck: Supple, No JVD Lungs: CTAB Abdomen: soft, non-tender, non-distended Extremities: excoriation Neurological: no change Internal Medicine Assmt/Plan - Assessment Assessment: Psychosis. Anxiety. Dehydration. Htn. - Plan Plan: Continue current treatment plan. Monitor Labs.Continue current medications Continue to monitor VS Monitor Diet/Nutritional support. Psych management per Psychiatry. Pain Management. PT/OT prn Safety precaution, Fall precaution, frequent nursing round. Supportive care. Continue collaborating with consulting specialists, case management and nursing team. Nutritional Asmnt/Malnutr-PDOC - Dietary Evaluation Malnutrition Findings (Please click <Entered> for more info): Nutritional Asmnt/Malnutrition Start: 06/03/19 11: 18 Text: Status: Complete Freq: Protocol: Document 06/03/19 11:19 ANEESH (Rec: 06/03/19 11:21 ANEESH [email or web address]) Nutritional Asmnt/Malnutrition Patient General Information Nutritional Screening Moderate Risk Diagnosis Psychosis Pertinent Medical Hx/Surgical Hx HTN Subjective Information Pt is a 69-year-old male from assisted admitted on 05/31 c /o agitation and refusing medication. Pt PO intake 100% since admission per Meal/ Nutrition Activity Record. HT: 58 WT: 140 LB (63.63 kg) BMI: 21.28 (Normal) GI: WNL, Flat BM: Not noted I/O: 1350/Not noted Skin: WNL, Intact Howard: 20 Diet Order: CCHO 60 gm, NERI Estimated Energy Needs: ( Geriatric, CBW) 3898-3070 kcals (25-30 kcals/ kg) 63-76 g Pro (1.0-1.2 g/kg) 1328-5619 ml (25-30 ml/kg) Pt is eating 100% of meals Per Meal/Nutrition Activity Record. Dietary is currently providing an estimated 1869 kcals and 98 gm Pro to meet 100% kcal and 100+% Pro needs. Current Diet Order/ Nutrition Support CCHO 60 gm, NERI Pertinent Medications Maalox (PRN), MOM (PRN) Pertinent Labs 06/01: POC Glucose 158 05/31: BUN/Cr 28/1.9, Glucose 149 Nutritional Hx/Data Height 5 ft 8 in Height (Calculated Centimeters) 172.7 Current Weight (lbs) 140 lb Weight (Calculated Kilograms) 63.5 Weight (Calculated Grams) 22668.9 [place] Body Weight 68.4 kg % [place] Body Weight 93 Body Mass Index (BMI) 21.2 Weight Status Approriate GI Symptoms GI Symptoms None Last BM Not noted Skin Integrity/Comment: WNL, Intact Howard: 20 Current %PO Good (75-100%) Estimated Nutritional Goals BEE in Kcals: Using Current wt Calories/Kcals/Kg 25-30 Kcals Calculated 9802-9247 Protein: Using Current wt Protein g/k.0-1.2 Protein Calculated 63-76 Fluid: ml 1330-8388 ml (25-30 ml/kg) Nutritional Problem 1. Problem Problem Altered Nutrition related labs Etiology r/t endocrine dysfunction Signs/Symptoms: aeb Glucose 149 (05/31) and POC Glucose 158 (06/01) Malnutrition Related to Morbid Obesity Malnutrition related to morbid obesity No Intervention/Recommendation Comments 1.Continue with CCHO 60 gm, NERI diet as ordered. Expected Outcomes/Goals Expected Outcomes/Goals 1.PO intake to continue to meet 75% of nutritional needs. 2.Monitor PO intake, wt, and skin integrity, and nutrition related labs to trend WNL 3.F/U as low risk in 7 days,
--- NOTE | 2019-06-12 14:24 | Progress Notes ---
DATE: 06/12/2019 Case was discussed with staff of the patient, reviewed records. The patient continues to isolate himself. Continues to have poor insight. Continues to be confused, demented, talking to himself with episodes of yelling and screaming. However, in general, he is showing progress, sleeping better, eating better. No side effects with the medication, no sedation, no nausea, no extrapyramidal symptoms. I will continue outpatient group therapy, milieu therapy, adjust medication as needed. [facility]# [id number]
[2019-06-13] MEDS: INSULIN LISPRO SLIDING SCALE 100 UNITS/ML UNIT SUBQ SCH ×2 (06:57→11:49)
[2019-06-13] MEDS ORDERED: Magnesium Hydroxide (MOM) 30 mL UDC PO PRN (09:59)
--- NOTE | 2019-06-13 11:10 | Discharge Summary ---
DATE OF DISCHARGE: 06/13/2019 DATE OF DISCHARGE: 06/13/2019 PATIENT'S AGE: 69. SEX: Male. PHYSICIAN: Maritza Georges M.D., M.P.H. FINAL DIAGNOSES: Primary Diagnosis: Schizophrenic disorder. Secondary Diagnosis: Dementia, moderate, with psychotic features and behavioral disturbances. REASON FOR HOSPITALIZATION: The patient was admitted to the hospital because of increased irritability and agitation in board and care facility, and the patient was actively hallucinating and had yelling and screaming episodes. The patient was admitted to the hospital. HOSPITAL COURSE: The patient continued to be agitated and restless. The patient also was having difficulty with his mood. Also, in the beginning of hospitalization, the patient had difficulty with episodes of anger. The patient also was interacting minimally with others. The patient was started on Zyprexa in a dose of 10 mg twice a day. Gradually, the patient's affect was brighter. The patient was calmer and it was easier to redirect him. The patient was interacting with others. The patient was accepted to the nursing facility and the patient was discharged there. PHYSICAL EXAMINATION: Of the patient was within normal and the patient had no major medical issues while in the hospital. AFTER DISCHARGE PLANS: Outpatient treatment and followup will continue as an outpatient. CRITERIA FOR DISCHARGE: The patient has good prognosis if continued to take psychotropic medications and follow up with discharge plans. [facility]# [id number]
--- NOTE | 2019-06-13 12:41 | Internal Medicine Prog Note ---
Internal Medicine Subjective - Subjective Service Date: 06/13/19 Patient seen and examined:: with staff Patient is:: awake, verbal, agitated Patient Complaints of:: other (less anxious.) Per staff patient has:: no adverse event, no episodes of fall, tolerating meds Internal Medicine Objective - Results Result Diagrams: 05/31/19 19:55 05/31/19 19:55 Recent Labs: Laboratory Last Values WBC 7.7 Th/cmm (4.8-10.8) 05/31/19 19:55 RBC 5.02 Mil/cmm (3.80-5.80) 05/31/19 19:55 Hgb 14.9 gm/dL (12-16) 05/31/19 19:55 Hct 44.2 % (41.0-60) 05/31/19 19:55 MCV 87.9 fl (80-99) 05/31/19 19:55 MCH 29.6 pg (27.0-31.0) 05/31/19 19:55 MCHC Differential 33.7 pg (28.0-36.0) 05/31/19 19:55 RDW 13.4 % (11.5-20.0) 05/31/19 19:55 Plt Count 234 Th/cmm (150-400) 05/31/19 19:55 MPV 7.3 fl 05/31/19 19:55 Neutrophils % 75.2 % (40.0-80.0) 05/31/19 19:55 Lymphocytes % 18.1 % (20.0-50.0) L 05/31/19 19:55 Monocytes % 4.2 % (2.0-10.0) 05/31/19 19:55 Eosinophils % 2.4 % (0.0-5.0) 05/31/19 19:55 Basophils % 0.1 % (0.0-2.0) 05/31/19 19:55 PT 9.5 SECONDS (9.5-11.5) 05/31/19 19:55 INR 0.91 (0.5-1.4) 05/31/19 19:55 PTT (Actin FS) 28.6 SECONDS (26.0-38.0) 05/31/19 19:55 Sodium 139 mEq/L (136-145) 05/31/19 19:55 Potassium 3.7 mEq/L (3.5-5.1) 05/31/19 19:55 Chloride 106 mEq/L (98-107) 05/31/19 19:55 Carbon Dioxide 25.2 mEq/L (21.0-31.0) 05/31/19 19:55 Anion Gap 11.5 (7.0-16.0) 05/31/19 19:55 BUN 28 mg/dL (7-25) H 05/31/19 19:55 Creatinine 1.9 mg/dL (0.7-1.3) H 05/31/19 19:55 Est GFR ( Amer) 45.3 ml/min (>90) 05/31/19 19:55 Est GFR (Non-Af Amer) 37.4 ml/min 05/31/19 19:55 BUN/Creatinine Ratio 14.7 05/31/19 19:55 Glucose 149 mg/dL (70-105) H 05/31/19 19:55 POC Glucose 224 MG/DL (70 - 105) H 06/13/19 06:22 Calcium 9.4 mg/dL (8.6-10.3) 05/31/19 19:55 Total Bilirubin 0.7 mg/dL (0.3-1.0) 05/31/19 19:55 AST 11 U/L (13-39) L 05/31/19 19:55 ALT 12 U/L (7-52) 05/31/19 19:55 Alkaline Phosphatase 42 U/L (34-104) 05/31/19 19:55 Troponin I 0.01 ng/mL (0.01-0.05) 05/31/19 19:55 B-Natriuretic Peptide 10.1 pg/mL (5.0-100.0) 05/31/19 19:55 Total Protein 6.8 gm/dL (6.0-8.3) 05/31/19 19:55 Albumin 4.2 gm/dL (4.2-5.5) 05/31/19 19:55 Globulin 2.6 gm/dL 05/31/19 19:55 Albumin/Globulin Ratio 1.6 (1.0-1.8) 05/31/19 19:55 TSH 1.55 uIU/ml (0.34-5.60) 05/31/19 19:55 Urine Source MIDSTREAM 05/31/19 20:36 Urine Color YELLOW 05/31/19 20:36 Urine Clarity CLEAR (CLEAR) 05/31/19 20:36 Urine pH 6.0 (4.6 - 8.0) 05/31/19 20:36 Ur Specific [place] <= 1.005 (1.005-1.030) 05/31/19 20:36 Urine Protein NEGATIVE mg/dL (NEGATIVE) 05/31/19 20:36 Urine Glucose (UA) NEGATIVE mg/dL (NEGATIVE) 05/31/19 20:36 Urine Ketones NEGATIVE mg/dL (NEGATIVE) 05/31/19 20:36 Urine Blood TRACE (NEGATIVE) 05/31/19 20:36 Urine Nitrate NEGATIVE (NEGATIVE) 05/31/19 20:36 Urine Bilirubin NEGATIVE (NEGATIVE) 05/31/19 20:36 Urine Urobilinogen 0.2 E.U./dL (0.2 - 1.0) 05/31/19 20:36 Ur Leukocyte Esterase NEGATIVE (NEGATIVE) 05/31/19 20:36 Urine RBC 2-5 /hpf (0-5) H 05/31/19 20:36 Urine WBC 0-2 /hpf (0-5) 05/31/19 20:36 Ur Epithelial Cells OCCASIONAL /lpf (FEW) 05/31/19 20:36 Urine Bacteria FEW /hpf (NONE SEEN) 05/31/19 20:36 Urine Mucus FEW /lpf (FEW) 05/31/19 20:36 - Physical Exam Vitals and I&O: Vital Signs Temp 97.7 F 06/13/19 06:15 Pulse 85 06/13/19 06:15 Resp 20 06/13/19 10:46 BP 142/56 06/13/19 06:15 Pulse Ox 96 06/13/19 06:15 Intake & Output 06/12/19 06/13/19 06/13/19 18:59 06:59 18:59 Intake Total 1000 120 Balance 1000 120 Intake: Oral 1000 120 Other: # Voids 4 3 # Bowel Movements 1 0 Active Medications: Current Medications Acetaminophen (Tylenol) 650 mg PO Q4HR PRN PRN Reason: Mild Pain / Temp above 100 Stop: 07/30/19 21:33 Al Hydrox/Mg Hydrox/Simethicone (Maalox) 30 ml PO Q4H PRN PRN Reason: GI DISTRESS Stop: 07/30/19 21:33 Last Admin: 06/08/19 13:03 Dose: 30 ml Dextrose (Glutose 40%) 18.75 gm PO PRN PRN PRN Reason: Blood Glucose less than 70 Stop: 08/04/19 18:25 Glucagon (Glucagen) 1 mg IM PRN PRN PRN Reason: Blood Glucose less than 70 Stop: 08/04/19 18:25 Insulin Human Lispro (Humalog Insulin Sliding Scale) 0 units SUBQ ACHS [facility]; Protocol Stop: 08/04/19 20:59 Last Admin: 06/13/19 11:49 Dose: Not Given Lorazepam (Ativan) 0.5 mg PO Q4H PRN; Protocol PRN Reason: Anxiety Stop: 07/30/19 21:33 Last Admin: 06/06/19 21:26 Dose: 0.5 mg Magnesium Hydroxide (Milk Of Magnesia) 30 ml PO HS PRN PRN Reason: Constipation Stop: 08/12/19 09:58 Olanzapine (Zyprexa) 10 mg PO BID GAURAV; Protocol Stop: 07/31/19 08:59 Last Admin: 06/13/19 09:10 Dose: 10 mg Promethazine HCl/Dextromethorphan (Phenergan Dm 6.25/15mg-5 Ml) 10 ml PO TID PRN PRN Reason: Cough Stop: 08/03/19 06:01 Last Admin: 06/04/19 21:27 Dose: 10 ml Zolpidem Tartrate (Ambien) 5 mg PO HS PRN PRN Reason: Insomnia Stop: 07/30/19 21:33 Last Admin: 06/13/19 01:22 Dose: 5 mg Physical Exam: Patient is less agitated. General: alert, demented HEENT: NC/AT, PERRLA Neck: Supple, No JVD Lungs: CTAB Abdomen: soft, non-tender, non-distended Extremities: excoriation Neurological: no change Internal Medicine Assmt/Plan - Assessment Assessment: Psychosis. Anxiety. Dehydration. Htn. - Plan Plan: Continuation of care. Monitor Labs. Continue present meds as directed. Monitor vitals, Continue BP meds as directed. Monitor Diet/Nutritional support. Psych management per psych. Pain Management. Physical therapyn prn. Occupational therapy prn. Fall precaution, frequent nursing rounds, and as needed restraints to prevent fall. Safety precaution. Supportive care. Continue collaborating with consulting specialists, case management and nursing team. Will Monitor patient and continue present care management. Nutritional Asmnt/Malnutr-PDOC - Dietary Evaluation Malnutrition Findings (Please click <Entered> for more info): Nutritional Asmnt/Malnutrition Start: 06/03/19 11: 18 Text: Status: Complete Freq: Protocol: Document 06/03/19 11:19 ANEESH (Rec: 06/03/19 11:21 [email or web address] [email or web address]) Nutritional Asmnt/Malnutrition Patient General Information Nutritional Screening Moderate Risk Diagnosis Psychosis Pertinent Medical Hx/Surgical Hx HTN Subjective Information Pt is a 69-year-old male from [facility] admitted on 05/31 c /o agitation and refusing medication. Pt PO intake 100% since admission per Meal/ Nutrition Activity Record. HT: 58 WT: 140 LB (63.63 kg) BMI: 21.28 (Normal) GI: WNL, Flat BM: Not noted I/O: 1350/Not noted Skin: WNL, Intact Howard: 20 Diet Order: CCHO 60 gm, NERI Estimated Energy Needs: ( Geriatric, CBW) 1533-4299 kcals (25-30 kcals/ kg) 63-76 g Pro (1.0-1.2 g/kg) 4191-9542 ml (25-30 ml/kg) Pt is eating 100% of meals Per Meal/Nutrition Activity Record. Dietary is currently providing an estimated 1869 kcals and 98 gm Pro to meet 100% kcal and 100+% Pro needs. Current Diet Order/ Nutrition Support CCHO 60 gm, NERI Pertinent Medications Maalox (PRN), MOM (PRN) Pertinent Labs 06/01: POC Glucose 158 05/31: BUN/Cr 28/1.9, Glucose 149 Nutritional Hx/Data Height 1.73 m Height (Calculated Centimeters) 172.7 Current Weight (lbs) 63.503 kg Weight (Calculated Kilograms) 63.5 Weight (Calculated Grams) 60896.9 [place] Body Weight 68.4 kg % [place] Body Weight 93 Body Mass Index (BMI) 21.2 Weight Status Approriate GI Symptoms GI Symptoms None Last BM Not noted Skin Integrity/Comment: WNL, Intact Howard: 20 Current %PO Good (75-100%) Estimated Nutritional Goals BEE in Kcals: Using Current wt Calories/Kcals/Kg 25-30 Kcals Calculated 3525-2597 Protein: Using Current wt Protein g/k.0-1.2 Protein Calculated 63-76 Fluid: ml 2372-3661 ml (25-30 ml/kg) Nutritional Problem 1. Problem Problem Altered Nutrition related labs Etiology r/t endocrine dysfunction Signs/Symptoms: aeb Glucose 149 (05/31) and POC Glucose 158 (06/01) Malnutrition Related to Morbid Obesity Malnutrition related to morbid obesity No Intervention/Recommendation Comments 1.Continue with CCHO 60 gm, NERI diet as ordered. Expected Outcomes/Goals Expected Outcomes/Goals 1.PO intake to continue to meet 75% of nutritional needs. 2.Monitor PO intake, wt, and skin integrity, and nutrition related labs to trend WNL 3.F/U as low risk in 7 days,
== END 2019-06-13 14:15 | DRG 885 ==
LOC: ER 17:59 → GERO2 21:00 → GERO 06-08 17:31
PROVIDERS: ADMIT Psychiatry & Neurology Psychiatry; ATTEND Psychiatry & Neurology Psychiatry
DX: F20.9 Schizophrenia, unspecified (principal); F03.91 Unspecified dementia, unspecified severity, with behavioral disturbance; E86.0 Dehydration; I10 Essential (primary) hypertension; F29 Unspecified psychosis not due to a substance or known physiological condition; F41.9 Anxiety disorder, unspecified
CPT/HCPCS: 36415-UA; 71045-TC; 80053-TC; 81001-TC; 82948-90; 83880-TC; 84443-TC; 84484-TC; 85025-TC; 85610-TC; 90899; 93005; G0410

== ENCOUNTER 2020-02-02 11:11 | Inpatient (IN) | payer MEDICARE ==
[2020-02-02] MEDS ORDERED: Magnesium Hydroxide (MOM) 30 mL UDC PO PRN ×2 (15:41→16:17)
[2020-02-02] MEDS ORDERED: Maalox 30 mL Cup PO PRN ×2 (15:41→16:17)
[2020-02-02 16:02] VITALS: BP 149/94
[2020-02-02] MEDS ORDERED: GLUCAGON HCl 1 MG KIT IM PRN (16:17)
[2020-02-02] MEDS ORDERED: Promethazine DM 6.25/15mg-5mL 5 ML SYR PO PRN (16:17)
[2020-02-02] MEDS: INSULIN LISPRO SLIDING SCALE 100 UNITS/ML UNIT SUBQ SCH ×2 (17:00→21:11)
--- NOTE | 2020-02-02 17:20 | History and Physical ---
History of Present Illness - HPI Chief Complaint: transfer from [facility] who is medically cleared to the Geropsych unit. 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 In the board and [facility] patient was very agitated, striking out, and not taking any of his medications for this reason patient is admitted here to the geropsych unit. Vital Signs: Last Vital Signs Temp Pulse Resp BP 149/94 02/02/20 15:58 Pulse Ox Past Medical History Cardiovascular: Report: HTN Psych: Report: Schizophrenia Family Medical History - Family Member Mother History Unknown: Yes Social History Smoke: No Alcohol: None Drugs: None Lives: Other (board and [facility]) - Medications Home Medications: Home Medication Medication Instructions Recorded Type Acetaminophen [Tylenol] 650 mg PO Q4HR PRN tab 06/13/19 Rx Al Hyd/Mg Hyd/Simethicone [Maalox] 30 ml PO Q4H PRN udc 06/13/19 Rx Dextrose Oral Gel [Glutose 40%] 18.75 gm PO PRN PRN tube 06/13/19 Rx GLUCAGON HCl [Glucagen] 1 mg IM PRN PRN kit 06/13/19 Rx Insulin Lispro Sliding Scale See Protocol SUBQ ACHS unit 06/13/19 Rx [humaLOG INSULIN SLIDING SCALE] Lorazepam [Ativan] 0.5 mg PO Q4H PRN tab 06/13/19 Rx Magnesium Hydroxide [Milk of 30 ml PO HS PRN udc 06/13/19 Rx Magnesia] OLANZapine [ZyPREXA] 10 mg PO BID tab 06/13/19 Rx Promethazine DM 6.25/15mg-5mL 10 ml PO TID PRN syr 06/13/19 Rx [Phenergan DM 6.25/15mg-5 mL] Zolpidem Tartrate [Ambien] 5 mg PO HS PRN tab 06/13/19 Rx - Allergies Allergies/Adverse Reactions: Allergies Allergy/AdvReac Type Severity Reaction Status Date / Time No Known Allergies Allergy Verified 12/05/18 18:58 Review of Systems - Review of Systems Constitutional: Report: No Significant Eyes: Report: No Significant ENT: Report: No Significant Respiratory: Report: No Significant Cardiovascular: Report: No Significant Gastrointestinal: Report: No Significant Neurological: Report: No Significant Physical Exam - Physical Exam HEENT: Report: Ears Nose Throat within normal limits Neck: Report: Within normal limits Cardiovascular Systems: Report: +s1/s2 noted, Regular, Rate and Rhythm Respiratory: Report: Breath Sounds are within normal limits Abdomen: Report: Non-tender to palpation Back: Report: Inspection of back is within normal limits. Extremities: Report: Non-tender to palpation. Skin: Report: Warm, Dry Neuro/Psych: Report: No motor deficit - Assessment Assessment: Hypertension Schizophrenia - Plan Plan: continue home medications fall precautions continue current plan of care
[2020-02-03] MEDS: INSULIN LISPRO SLIDING SCALE 100 UNITS/ML UNIT SUBQ SCH ×4 (06:54→21:24)
[2020-02-03] MEDS: Multivitamin Tab PO SCH (09:14)
--- NOTE | 2020-02-03 10:59 | Psychiatric Evaluation ---
DATE OF SERVICE: 02/03/2020 PSYCHIATRIC INITIAL EVALUATION AND MENTAL STATUS EXAM PATIENT'S AGE: 70. SEX: Male. PHYSICIAN: Dr. Georges. CHIEF COMPLAINT: Agitation and aggressive behavior. HISTORY OF PRESENT ILLNESS: The patient is a 70-year-old male who was admitted to the hospital after the patient was aggressive and agitated in the nursing facility. The patient was striking out and has been aggressive. The patient also has not been eating and has been refusing to take any medications. The patient has history of schizophrenia and has not been cooperative in the [facility] where he lives. He also has been aggressive and paranoid about the staff. Chart reviewed and the patient interviewed. The patient was restless and he was not able to standstill while I was trying to talk to him. He was in irritable and angry mood and he was unable to carry on any current conversation because of his anxiety and irritability. The patient also seemed to be actively responding to stimuli. Also, the patient was talking to himself and was still having difficulty with his mood. PAST PSYCHIATRIC HISTORY: The patient has history of schizophrenia with history of psychiatric hospitalization and treatment. PAST MEDICAL HISTORY: The patient has hypertension. SOCIAL HISTORY: The patient lives in [facility]. The patient is single, never and he has no children. The patient stated that he has "a nephew." He said that he smokes 5 cigarettes per day and he denies any alcohol or any street drug use. ALLERGIES: No known allergies. MENTAL STATUS EXAMINATION: Anxious. Restless. Continuous moving and unable to standstill. Thought processes are circumstantial with occasional flight of ideas. The patient is mumbling during the interview and unclear thought processes. The patient denies any hallucinations, but actively seems to be responding to stimuli and talking to self. Poor insight and judgment. The patient is alert and oriented to the situation, person and place. Intact immediate, recent and remote memories. Poor insight and poor judgment. ASSESSMENT: PRIMARY DIAGNOSIS: Schizophrenic disorder. MEDICAL DIAGNOSIS: Hypertension. TREATMENT PLAN: We will continue to monitor the patient's behavior and condition closely. Also, we will continue monitoring his behavior. Also, we will adjust psychotropic medications. ESTIMATED LENGTH OF STAY: 5-7 days. PATIENT'S STRENGTHS AND WEAKNESSES: The patient's strength is not clear at this time except that he seems to be in relatively fair health. Weakness is his poor impulse control and his psychosis. AFTER DISCHARGE PLANS: The patient might go to [facility] with plans for outpatient treatment there. CRITERIA FOR DISCHARGE: The patient will not be psychotic or suicidal or aggressive and will stabilize psychotropic medications and will establish outpatient treatment plans. [facility]# [id number]
--- NOTE | 2020-02-03 17:32 | Internal Medicine Prog Note ---
Internal Medicine Subjective - Subjective Service Date: 02/03/20 Internal Medicine Objective - Results Recent Labs: Laboratory Last Values POC Glucose 135 MG/DL (70 - 105) H 02/03/20 06:42 - Physical Exam Vitals and I&O: Vital Signs Temp 99.2 F 02/03/20 14:00 Pulse 102 02/03/20 14:00 Resp 20 02/03/20 14:00 BP 118/82 02/03/20 14:00 Pulse Ox 97 02/03/20 14:00 Intake & Output 02/02/20 02/03/20 02/03/20 18:59 06:59 18:59 Intake Total 560 380 Balance 560 380 Intake: Oral 560 380 Other: # Voids 2 2 # Bowel Movements 0 Weight Source Patient stated Active Medications: Current Medications Acetaminophen (Tylenol) 650 mg PO Q4H PRN PRN Reason: Pain (Mild 1-3) Stop: 04/02/20 15:40 Acetaminophen (Tylenol) 650 mg PO Q4HR PRN PRN Reason: Temp above 100 Stop: 04/02/20 16:16 Al Hydrox/Mg Hydrox/Simethicone (Maalox) 30 ml PO Q4H PRN PRN Reason: GI DISTRESS Stop: 04/02/20 16:16 Dextrose (Glutose 40%) 18.75 gm PO PRN PRN PRN Reason: Blood Glucose less than 70 Stop: 04/02/20 16:16 Glucagon (Glucagen) 1 mg IM PRN PRN PRN Reason: Blood Glucose less than 70 Stop: 04/02/20 16:16 Insulin Human Lispro (Humalog Insulin Sliding Scale) 0 units SUBQ ACHS GAURAV; Protocol Stop: 04/02/20 16:29 Last Admin: 02/03/20 12:18 Dose: 2 units Lorazepam (Ativan) 0.5 mg PO Q4HR PRN; Protocol PRN Reason: Anxiety Stop: 03/03/20 15:40 Magnesium Hydroxide (Milk Of Magnesia) 30 ml PO HS PRN PRN Reason: Constipation Stop: 04/02/20 16:16 Multivitamins/Vitamin C (Theragran) 1 tab PO DAILY GAURAV Stop: 04/03/20 08:59 Last Admin: 02/03/20 09:14 Dose: 1 tab Olanzapine (Zyprexa) 10 mg PO BID GAURAV; Protocol Stop: 04/02/20 16:59 Last Admin: 02/03/20 09:14 Dose: 10 mg Promethazine HCl/Dextromethorphan (Phenergan Dm 6.25/15mg-5 Ml) 10 ml PO TID PRN PRN Reason: Cough Stop: 04/02/20 16:16 Zolpidem Tartrate (Ambien) 5 mg PO HS PRN PRN Reason: Insomnia Stop: 04/02/20 15:40 Last Admin: 02/02/20 20:58 Dose: 5 mg Internal Medicine Assmt/Plan - Assessment Assessment: Hypertension Schizophrenia - Plan Plan: continue home medications fall precautions continue current plan of care
[2020-02-04] MEDS: INSULIN LISPRO SLIDING SCALE 100 UNITS/ML UNIT SUBQ SCH ×4 (06:50→21:00)
[2020-02-04] MEDS: Multivitamin Tab PO SCH (08:34)
--- NOTE | 2020-02-04 18:24 | Progress Notes ---
DATE: 02/04/2020 SUBJECTIVE: The patient was seen in the dining area. The patient appears to be guarded, easily gets frustrated, appears to be suspicious. Otherwise, the patient appears to be in no acute distress. OBJECTIVE: VITAL SIGNS: Temperature 97.2, heart rate of ____, blood pressure ____, respirations 20, 99% on room air. HEENT: Head is atraumatic and normocephalic. Eyes: Bilateral conjunctivae are clear. Bilateral pupils are equally round and reactive. NECK: Supple. No JVD. CARDIOVASCULAR: S1, S2, without murmur. PULMONARY: Clear to auscultation. GASTROINTESTINAL: Soft and nontender without guarding. Positive bowel sounds. MUSCULOSKELETAL: No clubbing. No cyanosis noted. ASSESSMENT: 1. Schizophrenia. 2. Hypertension. 3. Diabetes. PLAN: We will continue to keep the patient inpatient to Psychiatric Unit. We will follow up with a psychiatrist to monitor the patient's condition and behavior. We will put the patient on fall precautions. Treatment plans were discussed with the patient's nurse. Treatment plans were discussed with Dr. Brown. JOB# [id number]
--- NOTE | 2020-02-04 23:04 | Progress Notes ---
DATE: 02/04/2020 Covering for Maritza Georges M.D. SUBJECTIVE: The patient was interviewed. Case was discussed with staff. Chart and records were reviewed. The patient, per staff, has been disorganized on the unit, very paranoid, guarded, pacing, requires constant redirection on the unit, easily distracted, mumbling to himself and has poor self-care. The patient was interviewed this morning in the dayroom. The patient is disheveled appearing. He is disorganized. His speech is incoherent. He is talking to unseen others. He is anxious and restless and he has no plan for self-care. MENTAL STATUS EXAMINATION: The patient is a disheveled elderly male sitting in the day room chair. He has poor eye contact. His speech is mumbled and soft. His mood and affect are labile. Thought process is disorganized. Unable to assess for suicidal or homicidal thoughts. The patient is internally preoccupied, talking to unseen others, also appears to be paranoid of others as well. The patient is alert and oriented to his name. His insight, judgment and impulse control appear to be quite poor at this time. ASSESSMENT: This is a 70-year-old male, admitted to [facility] yesterday 02/03/2020 after the patient became aggressive in his nursing facility and striking at staff. Also, he has not been eating and has been refusing his medications. The patient here continues to be anxious, restless, disorganized, responding to internal stimuli, paranoid, needs constant redirection, impulsive and has no plan for self-care at this time. PLAN: We will continue the patient's acute hospitalization. We will continue medications as prescribed. We will encourage the patient to verbalize his needs and participate in group and milieu therapy. JOB# [id number]
[2020-02-05] MEDS: INSULIN LISPRO SLIDING SCALE 100 UNITS/ML UNIT SUBQ SCH ×4 (06:38→21:16)
[2020-02-05] MEDS: Multivitamin Tab PO SCH (08:41)
--- NOTE | 2020-02-05 22:25 | Internal Medicine Prog Note ---
Internal Medicine Subjective - Subjective Patient is:: awake, verbal, ambulating Per staff patient has:: no adverse event, no episodes of fall Internal Medicine Objective - Results Recent Labs: Laboratory Last Values POC Glucose 119 MG/DL (70 - 105) H 02/05/20 20:33 - Physical Exam Vitals and I&O: Vital Signs Temp 98.1 F 02/05/20 20:12 Pulse 106 02/05/20 20:12 Resp 19 02/05/20 20:12 BP 109/51 02/05/20 20:12 Pulse Ox 96 02/05/20 20:12 Intake & Output 02/05/20 02/05/20 02/06/20 06:59 18:59 06:59 Intake Total 400 900 240 Balance 400 900 240 Intake: Oral 400 900 240 Other: # Voids 1 1 # Bowel Movements 0 1 Active Medications: Current Medications Acetaminophen (Tylenol) 650 mg PO Q4H PRN PRN Reason: Pain (Mild 1-3) Stop: 04/02/20 15:40 Acetaminophen (Tylenol) 650 mg PO Q4HR PRN PRN Reason: Temp above 100 Stop: 04/02/20 16:16 Al Hydrox/Mg Hydrox/Simethicone (Maalox) 30 ml PO Q4H PRN PRN Reason: GI DISTRESS Stop: 04/02/20 16:16 Dextrose (Glutose 40%) 18.75 gm PO PRN PRN PRN Reason: Blood Glucose less than 70 Stop: 04/02/20 16:16 Glucagon (Glucagen) 1 mg IM PRN PRN PRN Reason: Blood Glucose less than 70 Stop: 04/02/20 16:16 Insulin Human Lispro (Humalog Insulin Sliding Scale) 0 units SUBQ ACHS GAURAV; Protocol Stop: 04/02/20 16:29 Last Admin: 02/05/20 21:16 Dose: Not Given Lorazepam (Ativan) 0.5 mg PO Q4HR PRN; Protocol PRN Reason: Anxiety Stop: 03/03/20 15:40 Last Admin: 02/04/20 22:26 Dose: 0.5 mg Magnesium Hydroxide (Milk Of Magnesia) 30 ml PO HS PRN PRN Reason: Constipation Stop: 04/02/20 16:16 Multivitamins/Vitamin C (Theragran) 1 tab PO DAILY GAURAV Stop: 04/03/20 08:59 Last Admin: 02/05/20 08:41 Dose: 1 tab Olanzapine (Zyprexa) 10 mg PO BID GAURAV; Protocol Stop: 04/02/20 16:59 Last Admin: 02/05/20 16:31 Dose: 10 mg Promethazine HCl/Dextromethorphan (Phenergan Dm 6.25/15mg-5 Ml) 10 ml PO TID PRN PRN Reason: Cough Stop: 04/02/20 16:16 Zolpidem Tartrate (Ambien) 5 mg PO HS PRN PRN Reason: Insomnia Stop: 04/02/20 15:40 Last Admin: 02/05/20 21:12 Dose: 5 mg General: demented, NAD HEENT: NC/AT Neck: Supple, No JVD Lungs: other (no acute respiratory distress on RA) Cardiovascular: RRR Abdomen: soft, non-tender, non-distended Neurological: no change Internal Medicine Assmt/Plan - Assessment Assessment: Schizophrenia HTN DM - Plan Plan: Continue current treatment Fall and Safety precautions Psychiatry for psych management Continue to monitor VS, IO Pain as needed Continue to collaborate with interdisciplinary team.
--- NOTE | 2020-02-05 23:17 | Progress Notes ---
DATE: 02/05/2020 COVERING FOR: Dr. Maritza Georges. SUBJECTIVE: The patient was interviewed. Case was discussed with staff. Chart and records were reviewed. Per the staff, the patient has been pacing the hallways, appears to be disorganized, mumbling to himself, was able to sleep for about 7 hours, has had a significant decrease in behavioral outbursts. The patient was interviewed this morning in the dayroom. The patient is mumbling to himself. He is not making any sense. He is difficult to follow. There appears to be paranoid of his environment. He gets increasingly angry during the interview for no reason. Interview was terminated due to his increased anxiety and escalation. MENTAL STATUS EXAMINATION: The patient is disheveled elderly male, sitting in the dayroom chair. Poor eye contact. Speech is mumbled. Mood and affect to be labile. Thought process is disorganized. Unable to assess for suicidal or homicidal thoughts, but the patient has escalating behavior, responding heavily to internal stimuli, appears to be paranoid. Alert and oriented to his name. Insight, judgment and impulse control are poor. ASSESSMENT: A 70-year-old male admitted to [facility] since 02/03/2020 after the patient became aggressive in his nursing facility and striking at staff. The patient also has had poor appetite and refusing medications and transferred to the hospital. The patient here continues to be anxious, restless, pacing the unit, disorganized, responding heavily to internal stimuli, paranoid with no plan for self-care. PLAN: We will continue the patient's acute hospitalization. We will continue medications as prescribed. We will encourage the patient to verbalize his needs and participate in group and milieu therapy. JOB# [id number]
[2020-02-06] MEDS: INSULIN LISPRO SLIDING SCALE 100 UNITS/ML UNIT SUBQ SCH ×4 (06:50→21:07)
[2020-02-06] MEDS: Multivitamin Tab PO SCH (08:36)
--- NOTE | 2020-02-06 15:41 | Progress Notes ---
DATE: 02/06/2020 SUBJECTIVE: Chart was reviewed and the patient interviewed. Also discussed the patient's condition with the staff and reviewed records and labs. The patient is still suspicious and paranoid and also he still has episodes of trying to hit staff and others. The patient also still has poor appetite and eating is still poor, although it is improved than when he was admitted. Also, resisting to take medications, but he is taking medications with instructions from staff. The patient also is still actively hallucinating and talking to himself. Also, personal hygiene is still poor and refusing to take shower. The patient's gait is steady and vital signs are stable and no new labs available for review MENTAL STATUS EXAMINATION: Disheveled. Talking to self and actively hallucinating and actively responding to stimuli. ASSESSMENT: The patient is still psychotic and can be dangerous to others. TREATMENT PLAN: Continue Zyprexa 10 mg twice a day. Also, continue to monitor his behavior and his medications closely. Also, working on his poor impulse control. ESTIMATED LENGTH OF STAY: 3-5 days. REASON FOR CONTINUED HOSPITAL STAY: The patient is still actively psychotic and considered to be gravely disabled and can be dangerous to others. JOB# [id number]
[2020-02-07] MEDS: INSULIN LISPRO SLIDING SCALE 100 UNITS/ML UNIT SUBQ SCH ×4 (06:54→21:26)
--- NOTE | 2020-02-07 06:59 | Progress Notes ---
DATE: 02/07/2020 SUBJECTIVE: Chart was reviewed and the patient interviewed. Also discussed the patient's condition with the staff and reviewed records and labs. The patient is still confused and is still pacing up and down the hallway in a confused state. He also still actively hallucinating and talking to himself and seems to be preoccupied. The patient also is still responding and paranoid about his surroundings and asking nurses questions about what is happening in the unit in a paranoid state. Also, is still severely anxious. The patient's appetite still considered to be low, but eating more than when he first came in to the hospital. The patient's gait is steady, but slow, but vital signs are stable and no new labs available for review. MENTAL STATUS EXAMINATION: Unkempt. Anxious. Disorganized thoughts and seems to be pretty occupied and responding. He is alert and seems to be oriented only to situation, but not to place or date or person. ASSESSMENT: The patient is still confused and considered to be gravely disabled and severely anxious. TREATMENT PLAN: Continue Zyprexa 10 mg twice a day. We will add BuSpar 5 mg twice a day. Hopefully, that will help with his anxiety level. Also, we will continue to monitor his impulse control and working on his behavior modification and his paranoia. ESTIMATED LENGTH OF STAY: 2-4 days. REASON TO CONTINUE HOSPITAL STAY: The patient is still confused and agitated and still needs adjustment to his medications. JOB# [id number]
[2020-02-07] MEDS: Multivitamin Tab PO SCH (09:55)
--- NOTE | 2020-02-07 12:52 | Internal Medicine Prog Note ---
Internal Medicine Subjective - Subjective Service Date: 02/07/20 Patient is:: awake, verbal, ambulating Per staff patient has:: no adverse event, no episodes of fall Internal Medicine Objective - Results Recent Labs: Laboratory Last Values POC Glucose 139 MG/DL (70 - 105) H 02/07/20 11:24 - Physical Exam Vitals and I&O: Vital Signs Temp 97.2 F 02/07/20 05:32 Pulse 72 02/07/20 05:32 Resp 19 02/07/20 05:32 BP 134/69 02/07/20 05:32 Pulse Ox 98 02/07/20 05:32 Intake & Output 02/06/20 02/07/20 02/07/20 18:59 06:59 18:59 Intake Total 1100 Balance 1100 Intake: Oral 1100 Other: # Voids 2 3 # Bowel Movements 0 0 Active Medications: Current Medications Acetaminophen (Tylenol) 650 mg PO Q4H PRN PRN Reason: Pain (Mild 1-3) Stop: 04/02/20 15:40 Acetaminophen (Tylenol) 650 mg PO Q4HR PRN PRN Reason: Temp above 100 Stop: 04/02/20 16:16 Al Hydrox/Mg Hydrox/Simethicone (Maalox) 30 ml PO Q4H PRN PRN Reason: GI DISTRESS Stop: 04/02/20 16:16 Buspirone HCl (Buspar) 5 mg PO BID [facility]; Protocol Stop: 04/07/20 08:59 Dextrose (Glutose 40%) 18.75 gm PO PRN PRN PRN Reason: BS Below 70 if tolerate po Stop: 04/02/20 16:16 Glucagon (Glucagen) 1 mg IM PRN PRN PRN Reason: BS Below 70 if not tolerate po Stop: 04/02/20 16:16 Insulin Human Lispro (Humalog Insulin Sliding Scale) 0 units SUBQ ACHS [facility]; Protocol Stop: 04/02/20 16:29 Last Admin: 02/07/20 11:35 Dose: Not Given Lorazepam (Ativan) 0.5 mg PO Q4HR PRN; Protocol PRN Reason: Anxiety Stop: 03/03/20 15:40 Last Admin: 02/04/20 22:26 Dose: 0.5 mg Magnesium Hydroxide (Milk Of Magnesia) 30 ml PO HS PRN PRN Reason: Constipation Stop: 04/02/20 16:16 Multivitamins/Vitamin C (Theragran) 1 tab PO DAILY [facility] Stop: 04/03/20 08:59 Last Admin: 02/07/20 09:55 Dose: 1 tab Olanzapine (Zyprexa) 10 mg PO BID [facility]; Protocol Stop: 04/02/20 16:59 Last Admin: 02/07/20 09:55 Dose: 10 mg Promethazine HCl/Dextromethorphan (Phenergan Dm 6.25/15mg-5 Ml) 10 ml PO TID PRN PRN Reason: Cough Stop: 04/02/20 16:16 Zolpidem Tartrate (Ambien) 5 mg PO HS PRN PRN Reason: Insomnia Stop: 04/02/20 15:40 Last Admin: 02/06/20 20:58 Dose: 5 mg General: demented, NAD HEENT: NC/AT Neck: Supple, No JVD Lungs: other (no acute respiratory distress on RA) Cardiovascular: RRR Abdomen: soft, non-tender, non-distended Neurological: no change Internal Medicine Assmt/Plan - Assessment Assessment: Hypertension Schizophrenia - Plan Plan: continue home medications fall precautions continue current plan of care Nutritional Asmnt/Malnutr-PDOC - Dietary Evaluation Malnutrition Findings (Please click <Entered> for more info): Nutritional Asmnt/Malnutrition Start: 02/07/20 12: 49 Text: Status: Complete Freq: Protocol: Document 02/07/20 12:49 ANEESH (Rec: 02/07/20 12:52 ANEESH [email or web address]) Nutritional Asmnt/Malnutrition Patient General Information Nutritional Screening Moderate Risk Diagnosis Psychosis Pertinent Medical Hx/Surgical Hx HTN, Schizophrenia Subjective Information Pt is a 70-year-old male admitted on 02/01 d/t agitation, striking out, and refusing medication. Pt is eating an estimated 93% of meals since admit date (x4 days) Per Meal/ Nutrition Activity Record. Dietary is currently providing an estimated 1750 kcals and 100 gm Pro, per Pt PO intake this is providing an estimated 1600 kcals and 93gm Pro to meet 100% kcal and 100+% Pro needs. Pt has no noted Hx DM, Glucose 178 on 02/01, POC Glucose (last 24 hours): 153, 122, 121, 115 , 157, 139. Pt on a CCHO 60 gm diet, INS-SS in medication regimen. A1c was not ordered, spoke with charge nurse Belkis to get A1c order. Will monitor results and make recommendation as necessary. Anthropometrics HT: 58 WT: 140 LB (63.64 kg) BMI: 21.29 (normal) GI/ Skin Integrity GI: WNL, Soft, Flat, Non- tender BM: 02/04 x1 I/O: 1100/Not Noted Skin: WNL, Intact, dryness Howard: 18 Diet Order: Cardiac, CCHO 60gm , Chopped Estimated Energy Needs: ( Geriatric, CBW) 0144-3817 kcals (25-30 kcals/ kg) 60-75g Pro (1.0-1.2 g/kg) 3989-8703 ml (25-30 ml/kg) Current Diet Order/ Nutrition Support Cardiac, CCHO 60gm, Chopped Pertinent Medications Maalox (PRN), Glutose 40% (PRN ), Glucagen (PRN), INS-SS, MOM (PRN), Theragran Pertinent Labs POC Glucose (last 24 hours): 153, 122, 121, 115, 157, 139 02/01: Glucose 178, BUN/Cr 27/1. 93 Nutritional Hx/Data Height 5 ft 8 in Height (Calculated Centimeters) 172.7 Current Weight (lbs) 140 lb Weight (Calculated Kilograms) 63.5 Weight (Calculated Grams) 74179.9 [place] Body Weight 154 LB (70 kg) % [place] Body Weight 91 Body Mass Index (BMI) 21.2 Weight Status Approriate GI Symptoms Last BM 02/04 x1 Skin Integrity/Comment: Skin: WNL, Intact, dryness Howard: 18 Estimated Nutritional Goals BEE in Kcals: Using Current wt Calories/Kcals/Kg 20-25 Kcals Calculated 5902-9709 Protein: Using Current wt Protein g/k.0-1.12 Protein Calculated 60-75 Fluid: ml 1395-9517 ml (25-30 ml/kg) Nutritional Problem 1. Problem Problem Impaired nutrient utilization Etiology r/t endocrine dysfunction Signs/Symptoms: aeb labs (02/01) Glucose 178, POC Glucose (last 24 hours): 153, 122, 121, 115, 157, 139. Malnutrition Related to Morbid Obesity Malnutrition related to morbid obesity No Intervention/Recommendation Comments 1.Continue Cardiac, CCHO 60gm, Chopped diet as tolerated. 2.Recommend A1c order. Expected Outcomes/Goals Expected Outcomes/Goals 1.PO intake to continue to meet >75% of estimated nutritional needs. 2.Monitor PO intake, wt, nutrition related labs to tend WNL, and skin integrity. 3.F/U as moderate risk in 3-5 days, 02/09-02/11
--- NOTE | 2020-02-08 06:45 | Progress Notes ---
DATE: 02/08/2020 SUBJECTIVE: Chart was reviewed and the patient interviewed. Also discussed the patient's condition with the staff and reviewed records and labs. The patient is still suspicious and is still paranoid. The patient also is talking about "I have a restraining order against my brother and the band ripsaw operator is sealed my records." The patient is still severely paranoid and restless. The patient also is still wandering around the unit in a confused state. The patient also although taking Zyprexa 10 mg twice a day, which is the maximum recommended dose, he is still severely paranoid and pacing up and down the unit and is still restless. Otherwise, the patient is in irritable and angry mood and still needs close monitoring. The patient's gait is steady, but slow. Vital signs are stable and no new labs available for review. MENTAL STATUS EXAMINATION: Disheveled. Anxious. Irritable mood. Suspicious and paranoid and at times during my interview was showing a loud tone of voice with some threatening gestures because of his paranoia. ASSESSMENT: The patient is still agitated and can be dangerous to others as well as considered to be gravely disabled. TREATMENT PLAN: We will continue to monitor his behavior and his condition closely. Also, we will start the patient on Seroquel and we will cross titrate Seroquel and Zyprexa. It seemed that Zyprexa has not been helping much and we will try to give the patient Seroquel. Hopefully, Seroquel will be more effective. ESTIMATED LENGTH OF STAY: 3-5 days. REASON FOR CONTINUED HOSPITAL STAY: The patient is still agitated and restless and in irritable mood and needs close monitoring. JOB# [id number]
[2020-02-08] MEDS: INSULIN LISPRO SLIDING SCALE 100 UNITS/ML UNIT SUBQ SCH ×4 (07:02→21:40)
[2020-02-08] MEDS: Multivitamin Tab PO SCH (09:25)
--- NOTE | 2020-02-08 13:37 | Internal Medicine Prog Note ---
Internal Medicine Subjective - Subjective Service Date: 02/08/20 Patient is:: awake, verbal, ambulating Per staff patient has:: no adverse event, no episodes of fall Internal Medicine Objective - Results Recent Labs: Laboratory Last Values POC Glucose 86 MG/DL (70 - 105) 02/08/20 11:53 - Physical Exam Vitals and I&O: Vital Signs Temp 98.1 F 02/08/20 05:24 Pulse 72 02/08/20 05:24 Resp 20 02/08/20 08:00 BP 132/70 02/08/20 05:24 Pulse Ox 96 02/08/20 05:24 Intake & Output 02/07/20 02/08/20 02/08/20 18:59 06:59 18:59 Intake Total 120 Balance 120 Intake: Oral 120 Other: # Voids 3 3 # Bowel Movements 1 0 Active Medications: Current Medications Acetaminophen (Tylenol) 650 mg PO Q4H PRN PRN Reason: Pain (Mild 1-3) Stop: 04/02/20 15:40 Acetaminophen (Tylenol) 650 mg PO Q4HR PRN PRN Reason: Temp above 100 Stop: 04/02/20 16:16 Al Hydrox/Mg Hydrox/Simethicone (Maalox) 30 ml PO Q4H PRN PRN Reason: GI DISTRESS Stop: 04/02/20 16:16 Dextrose (Glutose 40%) 18.75 gm PO PRN PRN PRN Reason: BS Below 70 if tolerate po Stop: 04/02/20 16:16 Glucagon (Glucagen) 1 mg IM PRN PRN PRN Reason: BS Below 70 if not tolerate po Stop: 04/02/20 16:16 Insulin Human Lispro (Humalog Insulin Sliding Scale) 0 units SUBQ ACHS [facility]; Protocol Stop: 04/02/20 16:29 Last Admin: 02/08/20 11:55 Dose: Not Given Lorazepam (Ativan) 0.5 mg PO Q4HR PRN; Protocol PRN Reason: Anxiety Stop: 03/03/20 15:40 Last Admin: 02/04/20 22:26 Dose: 0.5 mg Magnesium Hydroxide (Milk Of Magnesia) 30 ml PO HS PRN PRN Reason: Constipation Stop: 04/02/20 16:16 Multivitamins/Vitamin C (Theragran) 1 tab PO DAILY [facility] Stop: 04/03/20 08:59 Last Admin: 02/08/20 09:25 Dose: 1 tab Olanzapine (Zyprexa) 5 mg PO BID [facility]; Protocol Stop: 04/08/20 08:59 Last Admin: 02/08/20 09:25 Dose: 5 mg Promethazine HCl/Dextromethorphan (Phenergan Dm 6.25/15mg-5 Ml) 10 ml PO TID PRN PRN Reason: Cough Stop: 04/02/20 16:16 Quetiapine Fumarate (Seroquel) 50 mg PO BID [facility]; Protocol Stop: 04/08/20 08:59 Last Admin: 02/08/20 11:59 Dose: Not Given Zolpidem Tartrate (Ambien) 5 mg PO HS PRN PRN Reason: Insomnia Stop: 04/02/20 15:40 Last Admin: 02/07/20 21:03 Dose: 5 mg General: demented, NAD HEENT: NC/AT Neck: Supple, No JVD Lungs: other (no acute respiratory distress on RA) Cardiovascular: RRR Abdomen: soft, non-tender, non-distended Neurological: no change Internal Medicine Assmt/Plan - Assessment Assessment: Hypertension Schizophrenia - Plan Plan: continue home medications fall precautions continue current plan of care Nutritional Asmnt/Malnutr-PDOC - Dietary Evaluation Malnutrition Findings (Please click <Entered> for more info): Nutritional Asmnt/Malnutrition Start: 02/07/20 12: 49 Text: Status: Complete Freq: Protocol: Document 02/07/20 12:49 ANEESH (Rec: 02/07/20 12:52 ANEESH [email or web address]) Nutritional Asmnt/Malnutrition Patient General Information Nutritional Screening Moderate Risk Diagnosis Psychosis Pertinent Medical Hx/Surgical Hx HTN, Schizophrenia Subjective Information Pt is a 70-year-old male admitted on 02/01 d/t agitation, striking out, and refusing medication. Pt is eating an estimated 93% of meals since admit date (x4 days) Per Meal/ Nutrition Activity Record. Dietary is currently providing an estimated 1750 kcals and 100 gm Pro, per Pt PO intake this is providing an estimated 1600 kcals and 93gm Pro to meet 100% kcal and 100+% Pro needs. Pt has no noted Hx DM, Glucose 178 on 02/01, POC Glucose (last 24 hours): 153, 122, 121, 115 , 157, 139. Pt on a CCHO 60 gm diet, INS-SS in medication regimen. A1c was not ordered, spoke with charge nurse Belkis to get A1c order. Will monitor results and make recommendation as necessary. Anthropometrics HT: 58 WT: 140 LB (63.64 kg) BMI: 21.29 (normal) GI/ Skin Integrity GI: WNL, Soft, Flat, Non- tender BM: 02/04 x1 I/O: 1100/Not Noted Skin: WNL, Intact, dryness Howard: 18 Diet Order: Cardiac, CCHO 60gm , Chopped Estimated Energy Needs: ( Geriatric, CBW) 9867-1495 kcals (25-30 kcals/ kg) 60-75g Pro (1.0-1.2 g/kg) 2968-7202 ml (25-30 ml/kg) Current Diet Order/ Nutrition Support Cardiac, CCHO 60gm, Chopped Pertinent Medications Maalox (PRN), Glutose 40% (PRN ), Glucagen (PRN), INS-SS, MOM (PRN), Theragran Pertinent Labs POC Glucose (last 24 hours): 153, 122, 121, 115, 157, 139 02/01: Glucose 178, BUN/Cr 27/1. 93 Nutritional Hx/Data Height 5 ft 8 in Height (Calculated Centimeters) 172.7 Current Weight (lbs) 140 lb Weight (Calculated Kilograms) 63.5 Weight (Calculated Grams) 75350.9 [place] Body Weight 154 LB (70 kg) % [place] Body Weight 91 Body Mass Index (BMI) 21.2 Weight Status Approriate GI Symptoms Last BM 02/04 x1 Skin Integrity/Comment: Skin: WNL, Intact, dryness Howard: 18 Estimated Nutritional Goals BEE in Kcals: Using Current wt Calories/Kcals/Kg 20-25 Kcals Calculated 5843-1320 Protein: Using Current wt Protein g/k.0-1.12 Protein Calculated 60-75 Fluid: ml 9215-5676 ml (25-30 ml/kg) Nutritional Problem 1. Problem Problem Impaired nutrient utilization Etiology r/t endocrine dysfunction Signs/Symptoms: aeb labs (02/01) Glucose 178, POC Glucose (last 24 hours): 153, 122, 121, 115, 157, 139. Malnutrition Related to Morbid Obesity Malnutrition related to morbid obesity No Intervention/Recommendation Comments 1.Continue Cardiac, CCHO 60gm, Chopped diet as tolerated. 2.Recommend A1c order. Expected Outcomes/Goals Expected Outcomes/Goals 1.PO intake to continue to meet >75% of estimated nutritional needs. 2.Monitor PO intake, wt, nutrition related labs to tend WNL, and skin integrity. 3.F/U as moderate risk in 3-5 days, 02/09-02/11
[2020-02-09] MEDS: INSULIN LISPRO SLIDING SCALE 100 UNITS/ML UNIT SUBQ SCH ×4 (06:44→21:00)
[2020-02-09] MEDS: Multivitamin Tab PO SCH (08:20)
--- NOTE | 2020-02-09 10:57 | Progress Notes ---
DATE: SUBJECTIVE: Chart was reviewed and the patient interviewed. Also discussed the patient's condition with the staff and reviewed records and labs. The patient is still restless and anxious. The patient also still has disorganized thoughts and is still unable to carry on coherent conversation. The patient also is still easily agitated and still needs close monitoring and redirections. He also wants to be left alone. Otherwise, the patient is compliant with taking his medications. The patient is still pacing up and down the unit, but decreased hitting and aggressive behavior. Patient's gait is steady. Vital signs are stable and no new labs available for review. MENTAL STATUS EXAMINATION: Unkempt. Anxious. Disorganized thoughts and mumbling and talking to himself. ASSESSMENT: The patient is still psychotic and agitated. TREATMENT PLAN: The patient started on Seroquel 50 mg twice a day and Zyprexa and Lexapro gradually are reduced till stopped. We will continue same dose and continue monitoring behavior. ESTIMATED LENGTH OF STAY: 2-4 days. REASON FOR CONTINUED HOSPITAL STAY: The patient is still agitated and in irritable mood and also confused and needs redirections. JOB# [id number]
[2020-02-10] MEDS: INSULIN LISPRO SLIDING SCALE 100 UNITS/ML UNIT SUBQ SCH ×4 (06:49→20:45)
[2020-02-10] MEDS: Multivitamin Tab PO SCH (08:36)
--- NOTE | 2020-02-10 09:05 | Progress Notes ---
DATE: SUBJECTIVE: Chart was reviewed and the patient interviewed. Also discussed the patient's condition with the staff and reviewed records and labs. The patient seems in angry and in irritable mood today and he is pointing out his finger in a threatening way to me this morning. The patient also is restless and he is still pacing up and down the unit in a confused and angry mood. He also is still having mood swings and he still seems to be more aggressive. Otherwise, the patient is compliant, was taking his medications with no side effects of medications. The patient's gait is steady and vital signs are stable and no new labs available for review. MENTAL STATUS EXAMINATION: Disheveled. Anxious. In an irritable mood. Pacing. Unable to carry on coherent conversation and during my interview was pointing out his finger in a threatening way. ASSESSMENT: The patient is still agitated and still needs close monitoring. TREATMENT PLAN: We will continue to monitor behavior and condition closely. Also, we will discontinue Zyprexa completely since it has not been helping the patient. Also, we will increase Seroquel to 50 mg twice a day and 75 mg at bedtime. Also, continue to work on his irritability and confusion as well as his agitation and continue to follow up. JOB# [id number]
--- NOTE | 2020-02-10 14:13 | Internal Medicine Prog Note ---
Internal Medicine Subjective - Subjective Service Date: 02/10/20 Patient is:: awake, verbal, ambulating Per staff patient has:: no adverse event, no episodes of fall Internal Medicine Objective - Results Recent Labs: Laboratory Last Values POC Glucose 110 MG/DL (70 - 105) H 02/10/20 11:54 - Physical Exam Vitals and I&O: Vital Signs Temp 98.0 F 02/10/20 05:51 Pulse 78 02/10/20 05:51 Resp 17 02/10/20 08:00 BP 124/66 02/10/20 05:51 Pulse Ox 98 02/10/20 05:51 Intake & Output 02/09/20 02/10/20 02/10/20 18:59 06:59 18:59 Intake Total 1100 240 Balance 1100 240 Intake: Oral 1100 240 Other: # Voids 4 2 # Bowel Movements 0 0 Active Medications: Current Medications Acetaminophen (Tylenol) 650 mg PO Q4H PRN PRN Reason: Pain (Mild 1-3) Stop: 04/02/20 15:40 Acetaminophen (Tylenol) 650 mg PO Q4HR PRN PRN Reason: Temp above 100 Stop: 04/02/20 16:16 Al Hydrox/Mg Hydrox/Simethicone (Maalox) 30 ml PO Q4H PRN PRN Reason: GI DISTRESS Stop: 04/02/20 16:16 Dextrose (Glutose 40%) 18.75 gm PO PRN PRN PRN Reason: BS Below 70 if tolerate po Stop: 04/02/20 16:16 Glucagon (Glucagen) 1 mg IM PRN PRN PRN Reason: BS Below 70 if not tolerate po Stop: 04/02/20 16:16 Insulin Human Lispro (Humalog Insulin Sliding Scale) 0 units SUBQ ACHS [facility]; Protocol Stop: 04/02/20 16:29 Last Admin: 02/10/20 11:58 Dose: Not Given Lorazepam (Ativan) 0.5 mg PO Q4HR PRN; Protocol PRN Reason: Anxiety Stop: 03/03/20 15:40 Last Admin: 02/04/20 22:26 Dose: 0.5 mg Magnesium Hydroxide (Milk Of Magnesia) 30 ml PO HS PRN PRN Reason: Constipation Stop: 04/02/20 16:16 Multivitamins/Vitamin C (Theragran) 1 tab PO DAILY [facility] Stop: 04/03/20 08:59 Last Admin: 02/10/20 08:36 Dose: 1 tab Promethazine HCl/Dextromethorphan (Phenergan Dm 6.25/15mg-5 Ml) 10 ml PO TID PRN PRN Reason: Cough Stop: 04/02/20 16:16 Quetiapine Fumarate (Seroquel) 50 mg PO BID [facility]; Protocol Stop: 04/08/20 08:59 Last Admin: 02/10/20 08:36 Dose: 50 mg Quetiapine Fumarate 50 mg/ (Quetiapine Fumarate 25 mg) 75 mg PO HS [facility] Stop: 04/10/20 20:59 Zolpidem Tartrate (Ambien) 5 mg PO HS PRN PRN Reason: Insomnia Stop: 04/02/20 15:40 Last Admin: 02/09/20 22:35 Dose: 5 mg General: demented, NAD HEENT: NC/AT Neck: Supple, No JVD Lungs: other (no acute respiratory distress on RA) Cardiovascular: RRR Abdomen: soft, non-tender, non-distended Neurological: no change Internal Medicine Assmt/Plan - Assessment Assessment: Hypertension Schizophrenia - Plan Plan: continue home medications fall precautions continue current plan of care Nutritional Asmnt/Malnutr-PDOC - Dietary Evaluation Malnutrition Findings (Please click <Entered> for more info): Nutritional Asmnt/Malnutrition Start: 02/07/20 12: 49 Text: Status: Complete Freq: Protocol: Document 02/07/20 12:49 ANEESH (Rec: 02/07/20 12:52 ANEESH [email or web address] [id number]) Nutritional Asmnt/Malnutrition Patient General Information Nutritional Screening Moderate Risk Diagnosis Psychosis Pertinent Medical Hx/Surgical Hx HTN, Schizophrenia Subjective Information Pt is a 70-year-old male admitted on 02/01 d/t agitation, striking out, and refusing medication. Pt is eating an estimated 93% of meals since admit date (x4 days) Per Meal/ Nutrition Activity Record. Dietary is currently providing an estimated 1750 kcals and 100 gm Pro, per Pt PO intake this is providing an estimated 1600 kcals and 93gm Pro to meet 100% kcal and 100+% Pro needs. Pt has no noted Hx DM, Glucose 178 on 02/01, POC Glucose (last 24 hours): 153, 122, 121, 115 , 157, 139. Pt on a CCHO 60 gm diet, INS-SS in medication regimen. A1c was not ordered, spoke with charge nurse Belkis to get A1c order. Will monitor results and make recommendation as necessary. Anthropometrics HT: 58 WT: 140 LB (63.64 kg) BMI: 21.29 (normal) GI/ Skin Integrity GI: WNL, Soft, Flat, Non- tender BM: 02/04 x1 I/O: 1100/Not Noted Skin: WNL, Intact, dryness Howard: 18 Diet Order: Cardiac, CCHO 60gm , Chopped Estimated Energy Needs: ( Geriatric, CBW) 8587-5429 kcals (25-30 kcals/ kg) 60-75g Pro (1.0-1.2 g/kg) 1281-2714 ml (25-30 ml/kg) Current Diet Order/ Nutrition Support Cardiac, CCHO 60gm, Chopped Pertinent Medications Maalox (PRN), Glutose 40% (PRN ), Glucagen (PRN), INS-SS, MOM (PRN), Theragran Pertinent Labs POC Glucose (last 24 hours): 153, 122, 121, 115, 157, 139 02/01: Glucose 178, BUN/Cr 27/1. 93 Nutritional Hx/Data Height 5 ft 8 in Height (Calculated Centimeters) 172.7 Current Weight (lbs) 140 lb Weight (Calculated Kilograms) 63.5 Weight (Calculated Grams) 26796.9 [place] Body Weight 154 LB (70 kg) % [place] Body Weight 91 Body Mass Index (BMI) 21.2 Weight Status Approriate GI Symptoms Last BM 02/04 x1 Skin Integrity/Comment: Skin: WNL, Intact, dryness Howard: 18 Estimated Nutritional Goals BEE in Kcals: Using Current wt Calories/Kcals/Kg 20-25 Kcals Calculated 6128-7368 Protein: Using Current wt Protein g/k.0-1.12 Protein Calculated 60-75 Fluid: ml 6233-3330 ml (25-30 ml/kg) Nutritional Problem 1. Problem Problem Impaired nutrient utilization Etiology r/t endocrine dysfunction Signs/Symptoms: aeb labs (02/01) Glucose 178, POC Glucose (last 24 hours): 153, 122, 121, 115, 157, 139. Malnutrition Related to Morbid Obesity Malnutrition related to morbid obesity No Intervention/Recommendation Comments 1.Continue Cardiac, CCHO 60gm, Chopped diet as tolerated. 2.Recommend A1c order. Expected Outcomes/Goals Expected Outcomes/Goals 1.PO intake to continue to meet >75% of estimated nutritional needs. 2.Monitor PO intake, wt, nutrition related labs to tend WNL, and skin integrity. 3.F/U as moderate risk in 3-5 days, 02/09-02/11
[2020-02-11] MEDS: INSULIN LISPRO SLIDING SCALE 100 UNITS/ML UNIT SUBQ SCH ×4 (07:05→20:23)
[2020-02-11] MEDS: Multivitamin Tab PO SCH (09:30)
--- NOTE | 2020-02-11 09:57 | Progress Notes ---
DATE: 02/11/2020 SUBJECTIVE: The patient was seen in the dining area. The patient appears to be guarded, easily gets frustrated, tends to be impulsive, irritated and guarded. Otherwise, the patient appears to be in no acute distress. OBJECTIVE: VITAL SIGNS: Temperature 97.4, heart rate 88, blood pressure 124/64, respirations 20, 98% on room air. HEENT: Head is atraumatic and normocephalic. Eyes: Bilateral conjunctivae are clear. Bilateral pupils are equally round and reactive. NECK: Supple. No JVD. CARDIOVASCULAR: S1 and S2, without murmur. PULMONARY: Clear to auscultation. GASTROINTESTINAL: Soft and nontender without guarding. Positive bowel sounds. MUSCULOSKELETAL: No clubbing, no cyanosis noted. ASSESSMENT: 1. Schizophrenia. 2. Hypertension. 3. Diabetes. PLAN: We will continue to keep the patient inpatient to Psychiatric Unit. We will follow up with a psychiatrist to monitor the patient's condition and behavior. Treatment plans were discussed with the patient's nurse. Treatment plans were discussed with Dr. Brown. JOB# [id number]
--- NOTE | 2020-02-11 23:21 | Progress Notes ---
DATE: 02/11/2020 A 70-year-old male with a history of schizophrenia. Today on [id number] evaluation, the patient reports psychiatrist ____ check psychopharm. Reconciliation reviewed, Seroquel 50 b.i.d., 25 at bedtime. No side effects, no EPS. ASSESSMENT AND PLAN: History of schizophrenia, tolerating the recent adjustments in medications. He continues to find still distressed in tolerating the current titration from Zyprexa. JOB# [id number]
[2020-02-12] MEDS: INSULIN LISPRO SLIDING SCALE 100 UNITS/ML UNIT SUBQ SCH ×4 (06:38→21:11)
[2020-02-12] MEDS: Multivitamin Tab PO SCH (08:24)
--- NOTE | 2020-02-12 14:25 | Internal Medicine Prog Note ---
Internal Medicine Subjective - Subjective Patient is:: awake, verbal, ambulating, talking Per staff patient has:: no adverse event, no episodes of fall Internal Medicine Objective - Results Recent Labs: Laboratory Last Values POC Glucose 95 MG/DL (70 - 105) 02/12/20 11:36 - Physical Exam Vitals and I&O: Vital Signs Temp 98.4 F 02/12/20 14:03 Pulse 85 02/12/20 14:03 Resp 20 02/12/20 14:03 BP 139/83 02/12/20 14:03 Pulse Ox 98 02/12/20 14:03 Intake & Output 02/11/20 02/12/20 02/12/20 18:59 06:59 18:59 Intake Total 1000 240 Balance 1000 240 Intake: Oral 1000 240 Other: # Voids 4 1 # Bowel Movements 1 0 Active Medications: Current Medications Acetaminophen (Tylenol) 650 mg PO Q4H PRN PRN Reason: Pain (Mild 1-3) Stop: 04/02/20 15:40 Acetaminophen (Tylenol) 650 mg PO Q4HR PRN PRN Reason: Temp above 100 Stop: 04/02/20 16:16 Al Hydrox/Mg Hydrox/Simethicone (Maalox) 30 ml PO Q4H PRN PRN Reason: GI DISTRESS Stop: 04/02/20 16:16 Dextrose (Glutose 40%) 18.75 gm PO PRN PRN PRN Reason: BS Below 70 if tolerate po Stop: 04/02/20 16:16 Glucagon (Glucagen) 1 mg IM PRN PRN PRN Reason: BS Below 70 if not tolerate po Stop: 04/02/20 16:16 Insulin Human Lispro (Humalog Insulin Sliding Scale) 0 units SUBQ ACHS GAURAV; Protocol Stop: 04/02/20 16:29 Last Admin: 02/12/20 11:38 Dose: Not Given Lorazepam (Ativan) 0.5 mg PO Q4HR PRN; Protocol PRN Reason: Anxiety Stop: 03/03/20 15:40 Last Admin: 02/04/20 22:26 Dose: 0.5 mg Magnesium Hydroxide (Milk Of Magnesia) 30 ml PO HS PRN PRN Reason: Constipation Stop: 04/02/20 16:16 Multivitamins/Vitamin C (Theragran) 1 tab PO DAILY GAURAV Stop: 04/03/20 08:59 Last Admin: 02/12/20 08:24 Dose: 1 tab Promethazine HCl/Dextromethorphan (Phenergan Dm 6.25/15mg-5 Ml) 10 ml PO TID PRN PRN Reason: Cough Stop: 04/02/20 16:16 Quetiapine Fumarate (Seroquel) 50 mg PO BID GAURAV; Protocol Stop: 04/08/20 08:59 Last Admin: 02/12/20 08:24 Dose: 50 mg Quetiapine Fumarate 50 mg/ (Quetiapine Fumarate 25 mg) 75 mg PO HS GAURAV Stop: 04/10/20 20:59 Last Admin: 02/11/20 20:21 Dose: 75 mg Zolpidem Tartrate (Ambien) 5 mg PO HS PRN PRN Reason: Insomnia Stop: 04/02/20 15:40 Last Admin: 02/11/20 20:22 Dose: 5 mg General: demented, NAD HEENT: NC/AT Neck: Supple, No JVD Lungs: other (no acute respiratory distress on RA) Cardiovascular: RRR Abdomen: soft, non-tender, non-distended Neurological: no change Internal Medicine Assmt/Plan - Assessment Assessment: Schizophrenia HTN DM - Plan Plan: Continue current treatment Fall and Safety precautions Psychiatry for psych management Continue to monitor VS, IO Pain as needed Continue to collaborate with interdisciplinary team. Nutritional Asmnt/Malnutr-PDOC - Dietary Evaluation Malnutrition Findings (Please click <Entered> for more info): Nutritional Asmnt/Malnutrition Start: 02/07/20 12: 49 Text: Status: Complete Freq: Protocol: Document 02/07/20 12:49 ANEESH (Rec: 02/07/20 12:52 ANEESH [id number]) Nutritional Asmnt/Malnutrition Patient General Information Nutritional Screening Moderate Risk Diagnosis Psychosis Pertinent Medical Hx/Surgical Hx HTN, Schizophrenia Subjective Information Pt is a 70-year-old male admitted on 02/01 d/t agitation, striking out, and refusing medication. Pt is eating an estimated 93% of meals since admit date (x4 days) Per Meal/ Nutrition Activity Record. Dietary is currently providing an estimated 1750 kcals and 100 gm Pro, per Pt PO intake this is providing an estimated 1600 kcals and 93gm Pro to meet 100% kcal and 100+% Pro needs. Pt has no noted Hx DM, Glucose 178 on 02/01, POC Glucose (last 24 hours): 153, 122, 121, 115 , 157, 139. Pt on a CCHO 60 gm diet, INS-SS in medication regimen. A1c was not ordered, spoke with charge nurse Belkis to get A1c order. Will monitor results and make recommendation as necessary. Anthropometrics HT: 58 WT: 140 LB (63.64 kg) BMI: 21.29 (normal) GI/ Skin Integrity GI: WNL, Soft, Flat, Non- tender BM: 02/04 x1 I/O: 1100/Not Noted Skin: WNL, Intact, dryness Howard: 18 Diet Order: Cardiac, CCHO 60gm , Chopped Estimated Energy Needs: ( Geriatric, CBW) 3956-2237 kcals (25-30 kcals/ kg) 60-75g Pro (1.0-1.2 g/kg) 2316-0405 ml (25-30 ml/kg) Current Diet Order/ Nutrition Support Cardiac, CCHO 60gm, Chopped Pertinent Medications Maalox (PRN), Glutose 40% (PRN ), Glucagen (PRN), INS-SS, MOM (PRN), Theragran Pertinent Labs POC Glucose (last 24 hours): 153, 122, 121, 115, 157, 139 02/01: Glucose 178, BUN/Cr 27/1. 93 Nutritional Hx/Data Height 5 ft 8 in Height (Calculated Centimeters) 172.7 Current Weight (lbs) 140 lb Weight (Calculated Kilograms) 63.5 Weight (Calculated Grams) 30087.9 [place] Body Weight 154 LB (70 kg) % [place] Body Weight 91 Body Mass Index (BMI) 21.2 Weight Status Approriate GI Symptoms Last BM 02/04 x1 Skin Integrity/Comment: Skin: WNL, Intact, dryness Howard: 18 Estimated Nutritional Goals BEE in Kcals: Using Current wt Calories/Kcals/Kg 20-25 Kcals Calculated 3990-5934 Protein: Using Current wt Protein g/k.0-1.12 Protein Calculated 60-75 Fluid: ml 4577-5832 ml (25-30 ml/kg) Nutritional Problem 1. Problem Problem Impaired nutrient utilization Etiology r/t endocrine dysfunction Signs/Symptoms: aeb labs (02/01) Glucose 178, POC Glucose (last 24 hours): 153, 122, 121, 115, 157, 139. Malnutrition Related to Morbid Obesity Malnutrition related to morbid obesity No Intervention/Recommendation Comments 1.Continue Cardiac, CCHO 60gm, Chopped diet as tolerated. 2.Recommend A1c order. Expected Outcomes/Goals Expected Outcomes/Goals 1.PO intake to continue to meet >75% of estimated nutritional needs. 2.Monitor PO intake, wt, nutrition related labs to tend WNL, and skin integrity. 3.F/U as moderate risk in 3-5 days, 02/09-02/11
--- NOTE | 2020-02-13 02:36 | Progress Notes ---
DATE: 02/12/2020 SUBJECTIVE: Today on [id number] evaluation, the patient denies any side effects to the medications. The patient needs a lot of redirection to maintain simple conversation. No oversedation noted by the patient. ASSESSMENT AND PLAN: Schizophrenia, tolerating the recent adjustment of his cross titration. JOB# [id number]
[2020-02-13] MEDS: INSULIN LISPRO SLIDING SCALE 100 UNITS/ML UNIT SUBQ SCH ×4 (06:34→21:33)
[2020-02-13] MEDS: Multivitamin Tab PO SCH (08:04)
--- NOTE | 2020-02-13 12:55 | Discharge Summary ---
DATE OF DISCHARGE: 02/13/2020 AGE: 70. SEX: Male. PHYSICIAN: Dr. Georges. FINAL DIAGNOSIS: PRIMARY DIAGNOSIS: Schizophrenic disorder, unspecified. MEDICAL DIAGNOSIS: Hypertension. REASON FOR HOSPITALIZATION: The patient was admitted to the hospital because of increased agitation and aggressive behavior in the board and care facility where he lives. The patient also was not eating and was refusing to take any medications and was paranoid. HOSPITAL COURSE: The patient continued to be in irritable mood. The patient also was resisting care upon admission. He also was suspicious and paranoid. The patient was started on Seroquel and the dose adjusted to 75 mg at that time and 50 mg twice a day. The patient's affect became brighter. The patient was not as agitated. It was easier to follow directions. The patient was relatively weaker and he was accepted to go to [facility]. PHYSICAL EXAMINATION: Showed the patient has hypertension. The patient was monitored closely and then he was discharged to [facility]. AFTER-DISCHARGE PLANS: The patient discharged from the hospital to [facility] with plans for follow him up there. EXPECTED OUTCOME AFTER DISCHARGE: Fair if the patient continues to take his psychotropic medications and follow up with discharge plans. JOB# [id number]
--- NOTE | 2020-02-14 06:52 | Discharge Summary ---
DATE OF DISCHARGE: 02/14/2020 PRIMARY DIAGNOSIS: Schizophrenic disorder, unspecified. MEDICAL DIAGNOSIS: Hypertension. The patient was supposed to be discharged yesterday. I dictated discharge summary and please refer to dictation job #[id number] that was dictated yesterday at 1254. No changes on his mental status exam and it is not clear why the patient did not leave yesterday and the patient to go to [facility]. JOB# [id number]
[2020-02-14] MEDS: INSULIN LISPRO SLIDING SCALE 100 UNITS/ML UNIT SUBQ SCH ×2 (06:54→11:09)
--- NOTE | 2020-02-14 07:01 | Progress Notes ---
DATE: 02/13/2020 The patient was supposed to be discharged yesterday and I dictated discharge summary and discharge summary number is [id number]. To my knowledge the patient was supposed to be discharged and no issues that will keep him. It is not clear to me why the patient was not discharged and the patient remains in the hospital and he was not even aware that he was not discharged yet. Currently, the patient is still calm and cooperative. This is late dictation for yesterday since he was not discharged and I dictated discharge summary yesterday instead. Hopefully, the patient will be discharged today 02/13. JOB# [id number]
[2020-02-14] MEDS: Multivitamin Tab PO SCH (08:11)
--- NOTE | 2020-02-14 13:50 | Internal Medicine Prog Note ---
Internal Medicine Subjective - Subjective Service Date: 02/14/20 Patient is:: awake, verbal, ambulating, talking Per staff patient has:: no adverse event, no episodes of fall Internal Medicine Objective - Results Recent Labs: Laboratory Last Values POC Glucose 191 MG/DL (70 - 105) H 02/14/20 11:02 - Physical Exam Vitals and I&O: Vital Signs Temp 97.9 F 02/13/20 20:40 Pulse 86 02/13/20 20:40 Resp 16 02/14/20 07:38 BP 140/84 02/13/20 20:40 Pulse Ox 97 02/13/20 20:40 Intake & Output 02/13/20 02/14/20 02/14/20 18:59 06:59 18:59 Intake Total 1919 360 Balance 1919 360 Intake: Oral 1919 360 Other: # Voids 4 2 # Bowel Movements 1 0 Active Medications: Current Medications Acetaminophen (Tylenol) 650 mg PO Q4H PRN PRN Reason: Pain (Mild 1-3) Stop: 04/02/20 15:40 Acetaminophen (Tylenol) 650 mg PO Q4HR PRN PRN Reason: Temp above 100 Stop: 04/02/20 16:16 Al Hydrox/Mg Hydrox/Simethicone (Maalox) 30 ml PO Q4H PRN PRN Reason: GI DISTRESS Stop: 04/02/20 16:16 Dextrose (Glutose 40%) 18.75 gm PO PRN PRN PRN Reason: BS Below 70 if tolerate po Stop: 04/02/20 16:16 Glucagon (Glucagen) 1 mg IM PRN PRN PRN Reason: BS Below 70 if not tolerate po Stop: 04/02/20 16:16 Insulin Human Lispro (Humalog Insulin Sliding Scale) 0 units SUBQ ACHS GAURAV; Protocol Stop: 04/02/20 16:29 Last Admin: 02/14/20 11:09 Dose: 2 units Lorazepam (Ativan) 0.5 mg PO Q4HR PRN; Protocol PRN Reason: Anxiety Stop: 03/03/20 15:40 Last Admin: 02/04/20 22:26 Dose: 0.5 mg Magnesium Hydroxide (Milk Of Magnesia) 30 ml PO HS PRN PRN Reason: Constipation Stop: 04/02/20 16:16 Multivitamins/Vitamin C (Theragran) 1 tab PO DAILY GAURAV Stop: 04/03/20 08:59 Last Admin: 02/14/20 08:11 Dose: 1 tab Promethazine HCl/Dextromethorphan (Phenergan Dm 6.25/15mg-5 Ml) 10 ml PO TID PRN PRN Reason: Cough Stop: 04/02/20 16:16 Quetiapine Fumarate (Seroquel) 50 mg PO BID GAURAV; Protocol Stop: 04/08/20 08:59 Last Admin: 02/14/20 08:11 Dose: 50 mg Quetiapine Fumarate 50 mg/ (Quetiapine Fumarate 25 mg) 75 mg PO HS GAURAV Stop: 04/10/20 20:59 Last Admin: 02/13/20 20:38 Dose: 75 mg Zolpidem Tartrate (Ambien) 5 mg PO HS PRN PRN Reason: Insomnia Stop: 04/02/20 15:40 Last Admin: 02/13/20 20:38 Dose: 5 mg General: demented, NAD HEENT: NC/AT Neck: Supple, No JVD Lungs: other (no acute respiratory distress on RA) Cardiovascular: RRR Abdomen: soft, non-tender, non-distended Neurological: no change Internal Medicine Assmt/Plan - Assessment Assessment: Hypertension Schizophrenia - Plan Plan: continue home medications fall precautions continue current plan of care Nutritional Asmnt/Malnutr-PDOC - Dietary Evaluation Malnutrition Findings (Please click <Entered> for more info): Nutritional Asmnt/Malnutrition Start: 02/07/20 12: 49 Text: Status: Complete Freq: Protocol: Document 02/07/20 12:49 ANEESH (Rec: 02/07/20 12:52 ANEESH [id number]) Nutritional Asmnt/Malnutrition Patient General Information Nutritional Screening Moderate Risk Diagnosis Psychosis Pertinent Medical Hx/Surgical Hx HTN, Schizophrenia Subjective Information Pt is a 70-year-old male admitted on 02/01 d/t agitation, striking out, and refusing medication. Pt is eating an estimated 93% of meals since admit date (x4 days) Per Meal/ Nutrition Activity Record. Dietary is currently providing an estimated 1750 kcals and 100 gm Pro, per Pt PO intake this is providing an estimated 1600 kcals and 93gm Pro to meet 100% kcal and 100+% Pro needs. Pt has no noted Hx DM, Glucose 178 on 02/01, POC Glucose (last 24 hours): 153, 122, 121, 115 , 157, 139. Pt on a CCHO 60 gm diet, INS-SS in medication regimen. A1c was not ordered, spoke with charge nurse Belkis to get A1c order. Will monitor results and make recommendation as necessary. Anthropometrics HT: 58 WT: 140 LB (63.64 kg) BMI: 21.29 (normal) GI/ Skin Integrity GI: WNL, Soft, Flat, Non- tender BM: 02/04 x1 I/O: 1100/Not Noted Skin: WNL, Intact, dryness Howard: 18 Diet Order: Cardiac, CCHO 60gm , Chopped Estimated Energy Needs: ( Geriatric, CBW) 1498-2184 kcals (25-30 kcals/ kg) 60-75g Pro (1.0-1.2 g/kg) 9541-9876 ml (25-30 ml/kg) Current Diet Order/ Nutrition Support Cardiac, CCHO 60gm, Chopped Pertinent Medications Maalox (PRN), Glutose 40% (PRN ), Glucagen (PRN), INS-SS, MOM (PRN), Theragran Pertinent Labs POC Glucose (last 24 hours): 153, 122, 121, 115, 157, 139 02/01: Glucose 178, BUN/Cr 27/1. 93 Nutritional Hx/Data Height 5 ft 8 in Height (Calculated Centimeters) 172.7 Current Weight (lbs) 140 lb Weight (Calculated Kilograms) 63.5 Weight (Calculated Grams) 46993.9 [place] Body Weight 154 LB (70 kg) % [place] Body Weight 91 Body Mass Index (BMI) 21.2 Weight Status Approriate GI Symptoms Last BM 02/04 x1 Skin Integrity/Comment: Skin: WNL, Intact, dryness Howard: 18 Estimated Nutritional Goals BEE in Kcals: Using Current wt Calories/Kcals/Kg 20-25 Kcals Calculated 0697-8259 Protein: Using Current wt Protein g/k.0-1.12 Protein Calculated 60-75 Fluid: ml 9798-4368 ml (25-30 ml/kg) Nutritional Problem 1. Problem Problem Impaired nutrient utilization Etiology r/t endocrine dysfunction Signs/Symptoms: aeb labs (02/01) Glucose 178, POC Glucose (last 24 hours): 153, 122, 121, 115, 157, 139. Malnutrition Related to Morbid Obesity Malnutrition related to morbid obesity No Intervention/Recommendation Comments 1.Continue Cardiac, CCHO 60gm, Chopped diet as tolerated. 2.Recommend A1c order. Expected Outcomes/Goals Expected Outcomes/Goals 1.PO intake to continue to meet >75% of estimated nutritional needs. 2.Monitor PO intake, wt, nutrition related labs to tend WNL, and skin integrity. 3.F/U as moderate risk in 3-5 days, 02/09-02/11
== END 2020-02-14 16:25 | DRG 885 ==
LOC: GERO 14:38
PROVIDERS: ADMIT Psychiatry & Neurology Psychiatry; ATTEND Psychiatry & Neurology Psychiatry
DX: F20.9 Schizophrenia, unspecified (principal); I10 Essential (primary) hypertension; E11.9 Type 2 diabetes mellitus without complications; Z79.84 Long term (current) use of oral hypoglycemic drugs; Z79.899 Other long term (current) drug therapy
CPT/HCPCS: 82948-90; 83036-90; 90899; G0410; J7051; Z7610